=== PATIENT | female | born 1930 | race Caucasian/White ===

== ENCOUNTER 2016-06-02 17:49 | Inpatient (IN) | payer OTHER, MEDICARE ==
[2016-06-02 18:37] LABS: INR 1.2 (0.82-1.09); PROTHROMBIN TIME (PATIENT) 13.4 SEC (10.2-13.0)
[2016-06-02 18:44] VITALS: BMI 24.6
[2016-06-02 18:52] LABS: ALBUMIN 3.5 g/dl (3.5-5.0); BILIRUBIN,TOTAL 0.8 mg/dl (0.2-1.0); CALCIUM 8.7 mg/dl (8.4-10.2); CREATININE 1.4 mg/dl (0.6-1.3); TOT PROT 5.8 g/dl (6.4-8.3)
[2016-06-02] MEDS ORDERED: CEFTRIAXONE 50 ML IVPB ONE (18:55)
[2016-06-02 18:59] LABS: BASOPHIL 1.1 % (0-2.0); EOSINOPHIL 1.2 % (0-4.5); MCH 24.9 pg (25.7-33.7); MCHC 32.5 g/dl (32.0-36.0); MEAN CELL VOLUME 76.6 fl (80-96); MEAN PLT VOLUME 7.6 fl (7.5-11.1); NEUTROPHILS 33.3 % (42.8-82.8); PLATELET COUNT 166 K/MM3 (134-434); RDW 17.8 % (11.6-15.6); WHITE BLOOD COUNT 15.2 K/mm3 (4.0-10.0)
[2016-06-02] MEDS ORDERED: VANCOMYCIN 1 GRAM (PRE-DOCKED) 250 ML IVPB ONE (19:30)
[2016-06-02] MEDS ORDERED: CEFTRIAXONE 100 ML IVPB ONE (19:30)
--- NOTE | 2016-06-02 20:03 | PN ---
Teaching Attending Note ATTENDING PHYSICIAN STATEMENT I saw and evaluated the patient. I reviewed the resident's note and discussed the case with the resident. I agree with the resident's findings and plan as documented. SUBJECTIVE: OBJECTIVE: ASSESSMENT AND PLAN: Problem List - Problems (1) Fever Code(s): R50.9 - FEVER, UNSPECIFIED (2) Cough Code(s): R05 - COUGH (3) Volume depletion Code(s): E86.9 - VOLUME DEPLETION, UNSPECIFIED (4) CLL (chronic lymphocytic leukemia) Code(s): C91.10 - CHRONIC LYMPHOCYTIC LEUK OF B-CELL TYPE NOT ACHIEVE REMIS (5) Aortic stenosis Code(s): I35.0 - NONRHEUMATIC AORTIC (VALVE) STENOSIS Qualifiers: Cardiac valve disease etiology: nonrheumatic Qualified Code(s): I35.0 - Nonrheumatic aortic (valve) stenosis
[2016-06-02] MEDS: ALBUTEROL SO4 0.083% IH SOL 2.5 MG/3 ML VIAL.NEB. NEB PRN (20:34)
[2016-06-02] MEDS: ACETAMINOPHEN 325 MG TABLET (FP) PO PRN (20:56)
[2016-06-02] MEDS ORDERED: OSELTAMIVIR PHOSPHATE 30 MG CAPSULE PO ONE (23:35)
[2016-06-03] MEDS: guaiFENesin 200 MG/10 ML 10 ML UNIT-DOSE CUPS PO PRN ×2 (00:15→13:00)
--- NOTE | 2016-06-03 07:56 | CON.CARD ---
Consult Consult Specialty:: cardio Referred by:: outon Reason for Consultation:: tachycardia, - History of Present Illness Chief Complaint: tachy History of Present Illness: 85 yo female with known critical aortic stenosis, here with influenza A. pt has had viral syndrome sx's off and on for several weeks; however now with lingering/worsening cough, feels very weak and poor appetite-- did not eat anything yesterday. +phlegm yest with fever to 103, +flu test she denies any sob, orthopnea. no CP PMH: chronic pulm MAC infection CLL Ao stenosis CKD - Past Medical History ...: No - Alcohol/Substance Use Hx Alcohol Use: No - Smoking History Smoking history: Never smoked Have you smoked in the past 12 months: No Aproximately how many cigarettes per day: 0 Home Medications - Allergies Allergies/Adverse Reactions: Allergies Allergy/AdvReac Type Severity Reaction Status Date / Time No Known Allergies Allergy Verified 10/05/15 13:23 - Home Medications Home Medications: Ambulatory Orders Levothyroxine [Synthroid -] 0.25 mcg PO DAILY 10/05/15 Promethazine HCl/Codeine [Prometh-Codein 6.25-10 mg/5 ml] 5 ml PO 06/02/16 Review of Systems - Review of Systems Constitutional: denies: Chills, Fever Eyes: denies: Eye Pain HENT: denies: Gingival Bleeding Neck: denies: Stiffness Cardiovascular: denies: Palpitations Respiratory: denies: Orthopnea, PND Gastrointestinal: denies: Diarrhea, Rectal Bleeding Genitourinary: denies: Burning, Hematuria Musculoskeletal: denies: Muscle Pain Integumentary: denies: Rash Neurological: denies: Numbness, Seizure, Syncope Endocrine: denies: Excessive Sweating Hematology/Lymphatic: denies: Excessive Bleeding Vital Signs: Vital Signs Temperature 101.1 F H 06/03/16 05:47 Pulse Rate 113 H 06/03/16 05:47 Respiratory Rate 20 06/03/16 05:47 Blood Pressure 127/53 06/03/16 05:47 O2 Sat by Pulse Oximetry (%) 95 06/03/16 05:47 Constitutional: Yes: Well Nourished, No Distress Eyes: No: Sclera Icterus HENT: No: Nasal Congestion Neck: No: Decreased ROM Respiratory: Yes: CTA Bilaterally. No: Accessory Muscle Use, Rales, Wheezes Gastrointestinal: Yes: Normal Bowel Sounds. No: Distention, Hepatomegaly, Palpable Mass, Tenderness Cardiovascular: Yes: Regular Rate and Rhythm JVD: No Carotid Bruit: No PMI: Non-Displaced Heart Sounds: Yes: S1. No: Gallop Murmur: Yes: Systolic Murmur (3/6 late-peaking NEEL, no S2 heard). No: Diastolic Murmur Musculoskeletal: Yes: Other (No kyphosis) Extremities: No: Cool, Cyanosis Edema: No Peripheral Pulses: 2+ Left Carotid, 2+ Right Carotid, 2+ Left Doralis Pedis, 2+ Right Dorsalis Pedis Integumentary: No: Jaundice Neurological: Yes: Alert. 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, with risk of occlusion at time of valve deployment; -has had preserved LVEF with no prior chf -no JVD and cxr clear, no chf sx's -observe closely and low threshold to stop IVF if any changes in resp status/cxr influenza A: -getting tamiflu -currently with no po intake x at least 1 day, suspect may have had decr'd PO for longer than that (she can't recall), receiving IVF at 75cc/hr -no signs chf -labs do not look signif prerenal vs baseline -given very tight Ao valve area, rec decr fluids to 40cc/hr for now--will incr gradually if bun or bicarb rising, or low bp's noted CLL: -monitored by dr galloway CKD: -baseline creat 1.1-1.4 -renal fxn stable here
[2016-06-03 08:32] LABS: CREATININE 1.3 mg/dl (0.6-1.3); MAGNESIUM 1.5 mg/dL (1.8-2.4)
[2016-06-03] MEDS: CEFTRIAXONE 1 GM in DEXTROSE 5%-WATER - 50 ML IVPB SCH (09:00)
--- NOTE | 2016-06-03 09:12 | PN ---
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
--- NOTE | 2016-06-03 10:14 | CONS ---
DATE OF CONSULTATION: DATE OF DICTATION: 06/03/2016 HISTORY OF PRESENT ILLNESS: The patient is an 85-year-old female with a history of CLL with hypogammaglobulinemia evaluated for acute influenza B. She had presented to her primary care physicians office with complaints of fever, shortness of breath, and cough. The patient had been ill for several weeks, however, markedly worsening over the last several days. She reported fever. She presented to her PMDs office and was referred to the hospital. Her hospital course was notable for fever to 102. A rapid test for influenza was performed and was positive for influenza B. She was started on Tamiflu. The patient complains of profound weakness, body ache, fever, and dry cough. She is somewhat ill-appearing. She denies any ill contacts, reports receiving influenza vaccine prior to admission. She denies any recent hospitalizations. Patient has a history of CLL with hypogammaglobulinemia. She receives infusions of IVIG. In addition, on review of her past medical history, she is noted to have positive sputum cultures for atypical mycobacteria. Her treatment history is not available at this time. PAST MEDICAL HISTORY: Positive for CLL, hypogammaglobulinemia, aortic stenosis, atypical mycobacterial infection of the lung. ALLERGIES: No known allergies. MEDICATIONS: Include ceftriaxone, vancomycin, Tamiflu, Tylenol. SOCIAL HISTORY: She lives at home with family members. Nonsmoker, nondrinker. SYSTEMS REVIEW: Neurologic: No loss of consciousness, seizure activity, or focal weakness. Cardiac: Negative for chest pain or palpitations. Respiratory: As per HPI. Gastrointestinal: Negative for vomiting or diarrhea. Genitourinary: Negative for urinary tract infection. LABORATORY DATA: White count 15.2, 33 neutrophils, 58 lymphocytes, 6 monocytes, hematocrit 35.3, platelet count 166. BUN 22, creatinine 1.4. Influenza swab positive for influenza B. Chest x-ray showed scarring/chronic atelectasis left heart border. No acute pneumonitis. PHYSICAL EXAMINATION: General: She is out of bed to chair. She is ill-appearing and weak-appearing with cough. Vital signs: Temperature 101.1, maximum temperature 102, blood pressure 127/53, pulse 113 and regular, respirations 20 per minute. HEENT: Sclerae anicteric. Heart: Heart sounds S1, S2. Lungs: Bilateral rhonchi. No wheezing or rales. Abdomen: Soft. No tenderness elicited. No mass, rebound, or rigidity. Extremities: 1+ edema. IMPRESSION: 1. Acute influenza B. 2. Possible secondary bacterial infection. 3. Chronic lymphocytic leukemia/hypogammaglobulinemia. 4. History of atypical mycobacterial lung infection. Continue Tamiflu adjusted for azotemia. Await culture results. Empiric antibiotic coverage with Zithromax and ceftriaxone for possible secondary bacterial infectious process. Droplet precautions. Will follow. Thank you for the kind referral. RUSTY EDWARDS M.D. [id number]
[2016-06-03] MEDS: AZITHROMYCIN IVPB 500 MG in DEXTROSE 5%-WATER - 250 ML IVPB SCH (10:31)
[2016-06-03 11:37] LABS: THYROID STIMULATING HORMONE 2.05 uIU/ml (0.358-3.74)
[2016-06-03 12:20] LABS: MCH 24.9 pg (25.7-33.7); MCHC 32.7 g/dl (32.0-36.0); MEAN CELL VOLUME 76.2 fl (80-96); MEAN PLT VOLUME 8.1 fl (7.5-11.1); PLATELET COUNT 116 K/MM3 (134-434); RDW 17.5 % (11.6-15.6); WHITE BLOOD COUNT 7.8 K/mm3 (4.0-10.0)
[2016-06-03] MEDS: ACETAMINOPHEN 325 MG TABLET (FP) PO PRN ×2 (13:00→22:02)
[2016-06-03 13:14] LABS: PLATELET ESTIMATE DECREASED (NORMAL)
[2016-06-03 13:25] LABS: PH,URINE 5.5 (4.5-8); URINE APPEARANCE Clear; URINE BILIRUBIN Negative (NEGATIVE); URINE BLOOD Trace-intact (NEGATIVE); URINE COLOR AMBER; URINE GLUCOSE (UA) Negative (NEGATIVE); URINE KETONE Negative (NEGATIVE); URINE LEUK ESTERASE Negative (NEGATIVE); URINE NITRITE Negative (NEGATIVE); URINE PROTEIN 2+ (NEGATIVE); URINE UROBILINOGEN 0.2 E.U/dl (0.2-1.0)
[2016-06-03] MEDS ORDERED: MAGNESIUM SULF 50% (8.12 MEQ/2 ML-1 GM VIAL) ONE (15:58)
[2016-06-03] MEDS ORDERED: MAGNESIUM SULF 50% (8.12 MEQ/2 ML-1 GM VIAL) IVPB ONE (16:23)
[2016-06-03] MEDS ORDERED: ZOLPIDEM TARTRATE 5 MG TABLET PO PRN (18:03)
[2016-06-03] MEDS: LACTATED RINGERS SOLUTION 1,000 ML IV SCH ×2 (20:15→22:04)
[2016-06-03] MEDS ORDERED: OSELTAMIVIR PHOSPHATE 75 MG CAPSULE PO SCH (22:00)
[2016-06-03] MEDS: OSELTAMIVIR PHOSPHATE 30 MG CAPSULE PO SCH (22:03)
[2016-06-04] MEDS: CEFTRIAXONE 1 GM in DEXTROSE 5%-WATER - 50 ML IVPB SCH (09:00)
[2016-06-04] MEDS: AZITHROMYCIN IVPB 500 MG in DEXTROSE 5%-WATER - 250 ML IVPB SCH (10:00)
[2016-06-04] MEDS ORDERED: PT OWN MED DRAWER 7, Y5N ONE ×2 (10:59→21:37)
[2016-06-04] MEDS ORDERED: CEFTRIAXONE 50 ML ONE (11:00)
[2016-06-04] MEDS: OSELTAMIVIR PHOSPHATE 30 MG CAPSULE PO SCH (21:48)
[2016-06-04] MEDS: LACTATED RINGERS SOLUTION 1,000 ML IV SCH (21:48)
[2016-06-04] MEDS: guaiFENesin 200 MG/10 ML 10 ML UNIT-DOSE CUPS PO PRN (21:48)
[2016-06-04] MEDS ORDERED: LOPERAMIDE HCL 2 MG CAPSULE PO PRN (22:32)
[2016-06-04] MEDS ORDERED: LOPERAMIDE HCL 2 MG CAPSULE PO ONE (22:45)
[2016-06-05] MEDS: ALBUTEROL SO4 0.083% IH SOL 2.5 MG/3 ML VIAL.NEB. NEB PRN ×2 (00:38→06:33)
[2016-06-05] MEDS ORDERED: guaiFENesin/CODEINE 10 ML UNIT-DOSE CUPS PO PRN (07:31)
[2016-06-05] MEDS ORDERED: CEFTRIAXONE 50 ML ONE (08:13)
[2016-06-05 08:51] LABS: MCH 24.7 pg (25.7-33.7); MCHC 32.4 g/dl (32.0-36.0); MEAN CELL VOLUME 76.3 fl (80-96); MEAN PLT VOLUME 7.7 fl (7.5-11.1); PLATELET COUNT 134 K/MM3 (134-434); RDW 17.2 % (11.6-15.6); WHITE BLOOD COUNT 9.3 K/mm3 (4.0-10.0)
--- NOTE | 2016-06-05 08:57 | PN ---
Progress Note, Physician Chief Complaint: flu History of Present Illness: coughing a lot, bringing up phlegm; denies any sob or orthopnea; still not eating much; estimates drinking about 16 oz water; no cp, palpit feels weak/tired - Current Medication List Current Medications: Active Medications Acetaminophen (Tylenol -) 650 mg PO Q6H PRN PRN Reason: FEVER OR PAIN Last Admin: 06/03/16 22:02 Dose: 650 mg Albuterol Sulfate (Ventolin 0.083% Nebulizer Soln -) 1 amp NEB Q6H PRN PRN Reason: SHORT OF BREATH/WHEEZING Last Admin: 06/05/16 06:33 Dose: 1 amp Guaifenesin (Robitussin -) 10 ml PO Q4H PRN PRN Reason: COUGH Last Admin: 06/04/16 21:48 Dose: 10 ml Guaifenesin/Codeine Phosphate (Robitussin Ac -) 10 ml PO HS PRN Ceftriaxone Sodium 1 gm/ (Dextrose) 50 mls @ 100 mls/hr IVPB DAILY [facility] Last Admin: 06/04/16 09:00 Dose: 100 mls/hr Azithromycin 500 mg/ Dextrose 250 mls @ 250 mls/hr IVPB DAILY [facility] Last Admin: 06/04/16 10:00 Dose: 250 mls/hr Lactated Ringer's (Lactated Ringers Solution) 1,000 mls @ 40 mls/hr IV ASDIR [facility] Last Admin: 06/04/16 21:48 Dose: 40 mls/hr Loperamide HCl (Imodium -) 2 mg PO QID PRN PRN Reason: DIARRHEA Oseltamivir Phosphate (Tamiflu -) 30 mg PO [facility] Stop: 06/07/16 21:59 Last Admin: 06/04/16 21:48 Dose: 30 mg - Objective Vital Signs: Vital Signs Temperature 99.2 F 06/05/16 05:00 Pulse Rate 82 06/05/16 05:00 Respiratory Rate 20 06/05/16 05:00 Blood Pressure 117/56 06/05/16 05:00 O2 Sat by Pulse Oximetry (%) 94 L 06/04/16 21:00 Constitutional: Yes: Well Nourished, No Distress, Calm Cardiovascular: Yes: Regular Rate and Rhythm, Murmur (soft murmur), S1, S2. No: JVD, Gallop Respiratory: Yes: Regular, CTA Bilaterally. 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
[2016-06-05 09:08] LABS: ALBUMIN 2.6 g/dl (3.5-5.0); BILIRUBIN,TOTAL 0.5 mg/dl (0.2-1.0); CALCIUM 7.9 mg/dl (8.4-10.2); CREATININE 1.1 mg/dl (0.6-1.3); TOT PROT 4.4 g/dl (6.4-8.3)
[2016-06-05] MEDS: CEFTRIAXONE 1 GM in DEXTROSE 5%-WATER - 50 ML IVPB SCH (09:16)
--- NOTE | 2016-06-05 09:21 | PN ---
Progress Note, Physician History of Present Illness: Feeling better Still with cough, generalized weakness No c/o dyspnea/ chest pain Temps down- afebrile CT shows small bibasilar infiltrates - Current Medication List Current Medications: Active Medications Acetaminophen (Tylenol -) 650 mg PO Q6H PRN PRN Reason: FEVER OR PAIN Last Admin: 06/03/16 22:02 Dose: 650 mg Albuterol Sulfate (Ventolin 0.083% Nebulizer Soln -) 1 amp NEB Q6H PRN PRN Reason: SHORT OF BREATH/WHEEZING Last Admin: 06/05/16 06:33 Dose: 1 amp Guaifenesin (Robitussin -) 10 ml PO Q4H PRN PRN Reason: COUGH Last Admin: 06/04/16 21:48 Dose: 10 ml Guaifenesin/Codeine Phosphate (Robitussin Ac -) 10 ml PO HS PRN Ceftriaxone Sodium 1 gm/ (Dextrose) 50 mls @ 100 mls/hr IVPB DAILY [facility] Last Admin: 06/05/16 09:16 Dose: 100 mls/hr Azithromycin 500 mg/ Dextrose 250 mls @ 250 mls/hr IVPB DAILY [facility] Last Admin: 06/04/16 10:00 Dose: 250 mls/hr Loperamide HCl (Imodium -) 2 mg PO QID PRN PRN Reason: DIARRHEA Oseltamivir Phosphate (Tamiflu -) 30 mg PO HS [facility] Stop: 06/07/16 21:59 Last Admin: 06/04/16 21:48 Dose: 30 mg - Objective Vital Signs: Vital Signs Temperature 99.2 F 06/05/16 05:00 Pulse Rate 82 06/05/16 05:00 Respiratory Rate 20 06/05/16 05:00 Blood Pressure 117/56 06/05/16 05:00 O2 Sat by Pulse Oximetry (%) 94 L 06/04/16 21:00 Constitutional: Yes: No Distress Eyes: Yes: Conjunctiva Clear Cardiovascular: Yes: Regular Rate and Rhythm, S1, S2 Respiratory: Yes: Rhonchi Gastrointestinal: Yes: Normal Bowel Sounds, Soft. No: Tenderness Edema: Yes Edema: LLE: 1+, RLE: 1+ Labs: CBC, BMP 06/05/16 07:55 06/05/16 07:55 INR, PTT INR 1.20 (0.82-1.09) 06/02/16 18:00 Assessment/Plan Acute influenza B Possible secondary bacterial pneumonia CCL/ hypogammaglobulinemia Hx atypical mycobacterial lung infection Continue Tamiflu Empiric zithromax/ ceftriaxone Droplet precautions
[2016-06-05] MEDS ORDERED: MAGNESIUM SULFATE 2 GM in SODIUM CHLORIDE 100 ML IVPB ONE (10:49)
[2016-06-05] MEDS ORDERED: MAGNESIUM SULF 50% (8.12 MEQ/2 ML-1 GM VIAL) IVPB ONE (11:15)
--- NOTE | 2016-06-05 12:55 | EKG ---
Test Reason : Blood Pressure : / mmHG Vent. Rate : 111 BPM Atrial Rate : 111 BPM P-R Int : 170 ms QRS Dur : 084 ms QT Int : 338 ms P-R-T Axes : 076 -41 079 degrees QTc Int : 459 ms SINUS TACHYCARDIA LEFT AXIS DEVIATION NONSPECIFIC ST AND T WAVE ABNORMALITY ABNORMAL ECG WHEN COMPARED WITH ECG OF 06-MAY-2003 14:47, QRS AXIS SHIFTED LEFT NONSPECIFIC ST AND T WAVE ABNORMALITY are now present Confirmed by LIS WEST MD ([id number]) on 06/05/2016 12:55:17 PM Referred By: DR METCALF Confirmed By:LIS WEST MD
--- NOTE | 2016-06-05 14:07 | HP ---
[id number] 4d patient is a 85 y/o female with a past medical history of CLL hypogammaglobulinimeia (receives IVIG every 4 months), atypical mycobacterial infection of the lung, severe aortic stenosis. Patient reports feeling ill for the past several weeks. However, within the past week she reports generalized weakness, poor appetite, cough and fever (tmax of 102.0) She was evaluated by her PCP, Dr Man on 06/02/16 and was admitted to the hospital for further management. Recent Travel: none Social History: resides at home alone, retired Smoking: none Alcohol:none Drugs: none Family History: father (cva) mother (respiratory failure) Allergies No Known Allergies Allergy (Verified 10/05/15 13:23) HOME MEDICATIONS: Home Medications Medication Instructions Recorded Levothyroxine [Synthroid -] 0.25 mcg PO DAILY 10/05/15 Promethazine HCl/Codeine 5 ml PO 06/02/16 [Prometh-Codein 6.25-10 mg/5 ml] REVIEW OF SYSTEMS CONSTITUTIONAL: Present: fever,generalized weakness loss of appetite Absent: chills, diaphoresis, , malaise, weight change HEENT: Absent: rhinorrhea, nasal congestion, throat pain, throat swelling, difficulty swallowing, mouth swelling, ear pain, eye pain, visual changes CARDIOVASCULAR: Absent: chest pain, syncope, palpitations, irregular heart rate, lightheadedness , peripheral edema RESPIRATORY: present: cough Absent: shortness of breath, dyspnea with exertion, orthopnea, wheezing, stridor , hemoptysis GASTROINTESTINAL: Absent: abdominal pain, abdominal distension, nausea, vomiting, diarrhea, constipation, melena, hematochezia GENITOURINARY: Absent: dysuria, frequency, urgency, hesitancy, hematuria, flank pain, genital pain MUSCULOSKELETAL: Absent: myalgia, arthralgia, joint swelling, back pain, neck pain SKIN: Absent: rash, itching, pallor HEMATOLOGIC/IMMUNOLOGIC: Absent: easy bleeding, easy bruising, lymphadenopathy, frequent infections ENDOCRINE: Absent: unexplained weight gain, unexplained weight loss, heat intolerance, cold intolerance NEUROLOGIC: Absent: headache, focal weakness or paresthesias, dizziness, unsteady gait, seizure, mental status changes, bladder or bowel incontinence PSYCHIATRIC: Absent: anxiety, depression, suicidal or homicidal ideation, hallucinations. PHYSICAL EXAMINATION Vital Signs - 24 hr 06/04/16 06/04/16 06/04/16 14:22 14:30 19:52 Temperature 98.1 F Pulse Rate 106 H Respiratory 18 18 Rate Blood Pressure 112/56 O2 Sat by Pulse 94 L 94 L Oximetry (%) 06/04/16 06/05/16 21:00 05:00 Temperature 98.5 F 99.2 F Pulse Rate 102 H 82 Respiratory 16 20 Rate Blood Pressure 129/60 117/56 O2 Sat by Pulse 94 L Oximetry (%) GENERAL: Awake, alert, and fully oriented, in no acute distress. HEAD: Normal with no signs of trauma. EYES: Pupils equal, round and reactive to light, extraocular movements intact, sclera anicteric, conjunctiva clear. No lid lag. EARS, NOSE, THROAT: Ears normal, nares patent, oropharynx clear without exudates. Moist mucous membranes. NECK: Normal range of motion, supple without lymphadenopathy, JVD, or masses. LUNGS: Breath sounds equal, clear to auscultation bilaterally. diminished to bases, No wheezes, and no crackles. No accessory muscle use. tachypnea HEART: Regular rate and rhythm, normal S1 and S2 without murmur, rub or gallop. ABDOMEN: Soft, nontender, not distended, normoactive bowel sounds, no guarding, no rebound, no masses. No hepatomegaly or splenomegaly. MUSCULOSKELETAL: Normal range of motion at all joints. No bony deformities or tenderness. No CVA tenderness. UPPER EXTREMITIES: 2+ pulses, warm, well-perfused. No cyanosis. No clubbing. Cap refill <2 seconds. No peripheral edema. LOWER EXTREMITIES: 2+ pulses, warm, well-perfused. No calf tenderness. No peripheral edema. NEUROLOGICAL: Cranial nerves II-XII intact. Normal speech. Normal gait. PSYCHIATRIC: Cooperative. Good eye contact. Appropriate mood and affect. SKIN: Warm, dry, normal turgor, no rashes or lesions noted. Laboratory Results - last 24 hr 06/05/16 06/05/16 06/05/16 07:00 07:55 07:55 WBC 9.3 RBC 3.90 Hgb 9.6 L Hct 29.7 L MCV 76.3 L MCHC 32.4 RDW 17.2 H Plt Count 134 MPV 7.7 Sodium 135 L Potassium 3.6 Chloride 100 Carbon Dioxide 27 Anion Gap 8 BUN 24 H Creatinine 1.1 Creat Clearance w eGFR 47.21 Random Glucose 108 H Calcium 7.9 L Magnesium 1.7 L Total Bilirubin 0.5 D AST 20 D ALT 14 Alkaline Phosphatase 44 D Total Protein 4.4 L D Albumin 2.6 L D Microbiology 06/05/16 07:47 Urine For Antigen Detection Legionella Antigen - Final 06/05/16 07:47 Urine For Antigen Detection Streptococcus pneumoniae Antigen (M - Final 06/03/16 06:30 Sputum - Expectorated Gram Stain - Final 06/03/16 06:30 Sputum - Expectorated Sputum Culture - Final NORMAL RESPIRATORY LAURY 06/02/16 18:00 Blood - Peripheral Venous Blood Culture - Preliminary NO GROWTH OBTAINED AFTER 48 HOURS, INCUBATION TO CONTINUE FOR 3 DAYS. 06/02/16 20:30 Blood - Peripheral Venous Blood Culture - Preliminary NO GROWTH OBTAINED AFTER 48 HOURS, INCUBATION TO CONTINUE FOR 3 DAYS. 06/03/16 06:30 Urine - Urine Clean Catch Urine Culture - Final NO GROWTH OBTAINED 06/02/16 18:00 Nasopharyngeal Swab Influenza Types A,B Antigen (GARCIA) - Final , influenza B + 06/02/16 18:00 Nasopharyngeal Swab - Final ASSESSMENT/PLAN: 1) ID influenza b - continue tamiflu - ID consulted and followed 2) pulm atypical mycobacterial of lung - ct of chest, several billateral lower lobe infilitrates - continue zithromax and rocephin likely secondary bacterial bronchitis from influenza a - supplemental o2, keep spo2 above 92% - continue prn combivent nebulizer - incentive spirometer 3) Card severe aortic stenosis (s/p stent) - pending ECHO - elevated bnp, unknown baseline, pt euvolemic on exam - strict i/o 4) endo - pmh of hypothyroid - continue synthroid f/e/n - regular diet ppx zantac heparin pt oob scd/tez dispo: requires in patient care Problem List - Problem (1) Fever and chills Code(s): R50.9 - FEVER, UNSPECIFIED (2) Aortic stenosis Code(s): I35.0 - NONRHEUMATIC AORTIC (VALVE) STENOSIS Qualifiers: Cardiac valve disease etiology: nonrheumatic Qualified Code(s): I35.0 - Nonrheumatic aortic (valve) stenosis (3) CLL (chronic lymphocytic leukemia) Code(s): C91.10 - CHRONIC LYMPHOCYTIC LEUK OF B-CELL TYPE NOT ACHIEVE REMIS (4) Influenza B Code(s): J10.1 - FLU DUE TO OTH IDENT INFLUENZA VIRUS W OTH RESP MANIFEST Visit type - Emergency Visit Emergency Visit: Yes ED Registration Date: 06/02/16 Care time: The patient presented to the Emergency Department on the above date and was hospitalized for further evaluation of their emergent condition. - New Patient This patient is new to me today: Yes Date on this admission: 06/05/16 - Critical Care Critical Care patient: No
[2016-06-05] MEDS ORDERED: PT OWN MED DRAWER 7, Y5N ONE (22:28)
[2016-06-05] MEDS: HEPARIN NA (PORCINE) 5,000 UNITS/ML 1ML VIAL SQ SCH (22:30)
[2016-06-05] MEDS: OSELTAMIVIR PHOSPHATE 30 MG CAPSULE PO SCH (22:30)
[2016-06-06] MEDS: LEVOTHYROXINE NA 25 MCG TABLET (FP) PO SCH (06:18)
[2016-06-06 09:09] LABS: ALBUMIN 2.3 g/dl (3.5-5.0); BILIRUBIN,TOTAL 0.3 mg/dl (0.2-1.0); CALCIUM 7.7 mg/dl (8.4-10.2); CREATININE 1.1 mg/dl (0.6-1.3); MAGNESIUM 1.9 mg/dL (1.8-2.4); PHOSPHOROUS 2.8 mg/dl (2.5-4.6); TOT PROT 4.1 g/dl (6.4-8.3)
[2016-06-06 09:42] LABS: MCH 24.7 pg (25.7-33.7); MEAN CELL VOLUME 75.5 fl (80-96); WHITE BLOOD COUNT 9.2 K/mm3 (4.0-10.0)
[2016-06-06 09:43] LABS: MCHC 32.8 g/dl (32.0-36.0); MEAN PLT VOLUME 7.9 fl (7.5-11.1); PLATELET COUNT 110 K/MM3 (134-434); RDW 18.4 % (11.6-15.6)
[2016-06-06] MEDS: CEFTRIAXONE 1 GM in DEXTROSE 5%-WATER - 50 ML IVPB SCH (09:59)
[2016-06-06] MEDS: HEPARIN NA (PORCINE) 5,000 UNITS/ML 1ML VIAL SQ SCH ×2 (09:59→22:40)
[2016-06-06] MEDS: RANITIDINE HCL 150 MG TABLET (FP) PO SCH (09:59)
[2016-06-06] MEDS: AZITHROMYCIN IVPB 500 MG in DEXTROSE 5%-WATER - 250 ML IVPB SCH ×2 (10:06→12:17)
[2016-06-06] MEDS: ALBUTEROL SO4 2.5/IPRATROPIUM 0.5 INH SOL 3 ML VIAL.NEB. NEB SCH ×3 (10:20→22:40)
--- NOTE | 2016-06-06 10:36 | PN ---
Progress Note, Physician History of Present Illness: C/o generalized weaknes Less cough no c/o dyspnea/ chest pain Temps down, afebrile WBC improved- WNL - Current Medication List Current Medications: Active Medications Acetaminophen (Tylenol -) 650 mg PO Q6H PRN PRN Reason: FEVER OR PAIN Last Admin: 06/03/16 22:02 Dose: 650 mg Albuterol/Ipratropium (Duoneb -) 1 amp NEB Q6H [facility] Last Admin: 06/06/16 10:20 Dose: 1 amp Guaifenesin (Robitussin -) 10 ml PO Q4H PRN PRN Reason: COUGH Last Admin: 06/04/16 21:48 Dose: 10 ml Guaifenesin/Codeine Phosphate (Robitussin Ac -) 10 ml PO HS PRN Last Admin: 06/05/16 22:30 Dose: 10 ml Heparin Sodium (Porcine) (Heparin -) 5,000 unit SQ BID [facility] Last Admin: 06/06/16 09:59 Dose: 5,000 unit Ceftriaxone Sodium 1 gm/ (Dextrose) 50 mls @ 100 mls/hr IVPB DAILY [facility] Last Admin: 06/06/16 09:59 Dose: 100 mls/hr Azithromycin 500 mg/ Dextrose 250 mls @ 250 mls/hr IVPB DAILY [facility] Last Admin: 06/06/16 10:06 Dose: 250 mls/hr Levothyroxine Sodium (Synthroid -) 25 mcg PO ACBK [facility] Last Admin: 06/06/16 06:18 Dose: 25 mcg Loperamide HCl (Imodium -) 2 mg PO QID PRN PRN Reason: DIARRHEA Oseltamivir Phosphate (Tamiflu -) 30 mg PO HS [facility] Stop: 06/07/16 21:59 Last Admin: 06/05/16 22:30 Dose: 30 mg Ranitidine HCl (Zantac -) 150 mg PO DAILY [facility] Last Admin: 06/06/16 09:59 Dose: 150 mg - Objective Vital Signs: Vital Signs Temperature 99.1 F 06/06/16 05:00 Pulse Rate 95 H 06/06/16 09:42 Respiratory Rate 19 06/06/16 05:00 Blood Pressure 108/50 06/06/16 05:00 O2 Sat by Pulse Oximetry (%) 98 06/06/16 09:42 Constitutional: Yes: No Distress Eyes: Yes: Conjunctiva Clear Cardiovascular: Yes: Regular Rate and Rhythm, S1, S2 Respiratory: Yes: Rhonchi Gastrointestinal: Yes: Normal Bowel Sounds, Soft. 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
--- NOTE | 2016-06-06 11:57 | PN ---
Physical Exam: SUBJECTIVE: Patient seen and examined OBJECTIVE: Vital Signs Period Temp Pulse Resp BP Sys/Jones Pulse Ox Last 24 Hr 98.7 F-99.7 F 95-99 19-19 108-115/50-56 93-98 GENERAL: The patient is awake, alert, and fully oriented, in no acute distress. HEAD: Normal with no signs of trauma. EYES: PERRL, extraocular movements intact, sclera anicteric, conjunctiva clear. No ptosis. ENT: Ears normal, nares patent, oropharynx clear without exudates, moist mucous membranes. NECK: Trachea midline, full range of motion, supple. LUNGS: Breath sounds equal, clear to auscultation bilaterally, no wheezes, no crackles, no accessory muscle use. HEART: Regular rate and rhythm, S1, S2 without murmur, rub or gallop. ABDOMEN: Soft, nontender, nondistended, normoactive bowel sounds, no guarding, no rebound, no hepatosplenomegaly, no masses. EXTREMITIES: 2+ pulses, warm, well-perfused, no edema. NEUROLOGICAL: Cranial nerves II through XII grossly intact. Normal speech, gait not observed. PSYCH: Normal mood, normal affect. SKIN: Warm, dry, normal turgor, no rashes or lesions noted Laboratory Results - last 24 hr 06/06/16 06/06/16 07:40 07:40 WBC 9.2 RBC 3.55 L Hgb 8.8 L Hct 26.8 L MCV 75.5 L MCHC 32.8 RDW 18.4 H Plt Count 110 L MPV 7.9 Neutrophils % Y Lymphocytes % Y Sodium 135 L Potassium 3.7 Chloride 99 Carbon Dioxide 28 Anion Gap 8 BUN 27 H Creatinine 1.1 Creat Clearance w eGFR 47.21 Random Glucose 99 Calcium 7.7 L Phosphorus 2.8 Magnesium 1.9 Total Bilirubin 0.3 D AST 27 D ALT 15 Alkaline Phosphatase 39 Total Protein 4.1 L Albumin 2.3 L Active Medications Generic Name Dose Route Start Last Admin Trade Name Freq PRN Reason Stop Dose Admin Acetaminophen 650 mg 06/02/16 18:53 06/03/16 22:02 Tylenol - PO 650 mg Q6H PRN Administration FEVER OR PAIN Albuterol/Ipratropium 1 amp 06/06/16 10:00 06/06/16 10:20 Duoneb - NEB 1 amp Q6H JAYSON Administration Guaifenesin 10 ml 06/02/16 23:31 06/04/16 21:48 Robitussin - PO 10 ml Q4H PRN Administration COUGH Guaifenesin/Codeine Phosphate 10 ml 06/05/16 07:31 06/05/16 22:30 Robitussin Ac - PO 10 ml HS PRN Administration Heparin Sodium (Porcine) 5,000 unit 06/05/16 22:00 06/06/16 09:59 Heparin - SQ 5,000 unit BID JAYSON Administration Ceftriaxone Sodium 1 gm/ 50 mls @ 100 mls/hr 06/03/16 10:00 06/06/16 09:59 Dextrose IVPB 100 mls/hr DAILY JAYSON Administration Azithromycin 500 mg/ Dextrose 250 mls @ 250 mls/hr 06/03/16 10:00 06/06/16 10: 06 IVPB 250 mls/hr DAILY JAYSON Administration Levothyroxine Sodium 25 mcg 06/06/16 07:00 06/06/16 06:18 Synthroid - PO 25 mcg ACBK JAYSON Administration Loperamide HCl 2 mg 06/04/16 22:32 Imodium - PO QID PRN DIARRHEA Oseltamivir Phosphate 30 mg 06/03/16 22:00 06/05/16 22:30 Tamiflu - PO 06/07/16 21:59 30 mg HS JAYSON Administration Ranitidine HCl 150 mg 06/06/16 10:00 06/06/16 09:59 Zantac - PO 150 mg DAILY JAYSON Administration ASSESSMENT/PLAN: Problem List - Problems (1) Fever and chills Code(s): R50.9 - FEVER, UNSPECIFIED (2) Aortic stenosis Code(s): I35.0 - NONRHEUMATIC AORTIC (VALVE) STENOSIS Qualifiers: Cardiac valve disease etiology: nonrheumatic Qualified Code(s): I35.0 - Nonrheumatic aortic (valve) stenosis (3) CLL (chronic lymphocytic leukemia) Code(s): C91.10 - CHRONIC LYMPHOCYTIC LEUK OF B-CELL TYPE NOT ACHIEVE REMIS (4) Influenza B Code(s): J10.1 - FLU DUE TO OTH IDENT INFLUENZA VIRUS W OTH RESP MANIFEST
--- NOTE | 2016-06-06 12:02 | PN ---
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 patient was admitted for emergent condition Vital Signs Period Temp Pulse Resp BP Sys/Jones Pulse Ox Last 24 Hr 98.7 F-99.7 F 95-99 19-19 108-115/50-56 93-98 GENERAL: The patient is awake, alert, and fully oriented, in no acute distress. HEAD: Normal with no signs of trauma. EYES: PERRL, extraocular movements intact, sclera anicteric, conjunctiva clear. No ptosis. ENT: Ears normal, nares patent, oropharynx clear without exudates, moist mucous membranes. NECK: Trachea midline, full range of motion, supple. LUNGS: Breath sounds equal, clear to apexes bilaterally, crackles noted to right lower lobe, no wheezes, no accessory muscle use. HEART: Regular rate and rhythm, S1, S2 without murmur, rub or gallop. ABDOMEN: Soft, nontender, nondistended, normoactive bowel sounds, no guarding, no rebound, no hepatosplenomegaly, no masses. EXTREMITIES: 2+ pulses, warm, well-perfused, no edema. NEUROLOGICAL: Cranial nerves II through XII grossly intact. Normal speech, gait not observed. PSYCH: Normal mood, normal affect. SKIN: Warm, dry, normal turgor, no rashes or lesions noted Laboratory Results - last 24 hr 06/06/16 06/06/16 07:40 07:40 WBC 9.2 RBC 3.55 L Hgb 8.8 L Hct 26.8 L MCV 75.5 L MCHC 32.8 RDW 18.4 H Plt Count 110 L MPV 7.9 Neutrophils % Y Lymphocytes % Y Sodium 135 L Potassium 3.7 Chloride 99 Carbon Dioxide 28 Anion Gap 8 BUN 27 H Creatinine 1.1 Creat Clearance w eGFR 47.21 Random Glucose 99 Calcium 7.7 L Phosphorus 2.8 Magnesium 1.9 Total Bilirubin 0.3 D AST 27 D ALT 15 Alkaline Phosphatase 39 Total Protein 4.1 L Albumin 2.3 L Active Medications Generic Name Dose Route Start Last Admin Trade Name Freq PRN Reason Stop Dose Admin Acetaminophen 650 mg 06/02/16 18:53 06/03/16 22:02 Tylenol - PO 650 mg Q6H PRN Administration FEVER OR PAIN Albuterol/Ipratropium 1 amp 06/06/16 10:00 06/06/16 10:20 Duoneb - NEB 1 amp Q6H JAYSON Administration Guaifenesin 10 ml 06/02/16 23:31 06/04/16 21:48 Robitussin - PO 10 ml Q4H PRN Administration COUGH Guaifenesin/Codeine Phosphate 10 ml 06/05/16 07:31 06/05/16 22:30 Robitussin Ac - PO 10 ml HS PRN Administration Heparin Sodium (Porcine) 5,000 unit 06/05/16 22:00 06/06/16 09:59 Heparin - SQ 5,000 unit BID JAYSON Administration Ceftriaxone Sodium 1 gm/ 50 mls @ 100 mls/hr 06/03/16 10:00 06/06/16 09:59 Dextrose IVPB 100 mls/hr DAILY JAYSON Administration Azithromycin 500 mg/ Dextrose 250 mls @ 250 mls/hr 06/03/16 10:00 06/06/16 10: 06 IVPB 250 mls/hr DAILY JAYSON Administration Levothyroxine Sodium 25 mcg 06/06/16 07:00 06/06/16 06:18 Synthroid - PO 25 mcg ACBK JAYSON Administration Loperamide HCl 2 mg 06/04/16 22:32 Imodium - PO QID PRN DIARRHEA Oseltamivir Phosphate 30 mg 06/03/16 22:00 06/05/16 22:30 Tamiflu - PO 06/07/16 21:59 30 mg HS JAYSON Administration Ranitidine HCl 150 mg 06/06/16 10:00 06/06/16 09:59 Zantac - PO 150 mg DAILY JAYSON Administration Microbiology 06/02/16 18:00 Blood - Peripheral Venous Blood Culture - Preliminary NO GROWTH OBTAINED AFTER 72 HOURS, INCUBATION TO CONTINUE FOR 2 DAYS. 06/02/16 20:30 Blood - Peripheral Venous Blood Culture - Preliminary NO GROWTH OBTAINED AFTER 72 HOURS, INCUBATION TO CONTINUE FOR 2 DAYS. 06/04/16 21:00 Stool Clostridium difficile Antigen (GARCIA) - Final 06/04/16 21:00 Stool Clostridium difficile Toxin Assay - Final 06/05/16 07:47 Urine For Antigen Detection Legionella Antigen - Final 06/05/16 07:47 Urine For Antigen Detection Streptococcus pneumoniae Antigen (M - Final 06/03/16 06:30 Sputum - Expectorated Gram Stain - Final 06/03/16 06:30 Sputum - Expectorated Sputum Culture - Final NORMAL RESPIRATORY LAURY 06/03/16 06:30 Urine - Urine Clean Catch Urine Culture - Final NO GROWTH OBTAINED 06/02/16 18:00 Nasopharyngeal Swab Influenza Types A,B Antigen (GARCIA) - Final 06/02/16 18:00 Nasopharyngeal Swab - Final ASSESSMENT/PLAN: 1) ID influenza b - continue tamiflu - no leukocytosis, pt afebrile - blood and urine cultures negative to date - ID consulted and followed 2) pulm atypical mycobacterial of lung - ct of chest, several billateral lower lobe infilitrates - continue zithromax and rocephin likely secondary bacterial bronchitis from influenza a - supplemental o2, keep spo2 above 92% - start scheduled combivent nebulizer - incentive spirometer 3) Card severe aortic stenosis (s/p stent) - ECHO, LVEF 55%, moderate LVH, severe aortic stenosis - elevated bnp, unknown baseline, pt euvolemic on exam - strict i/o 4) endo - pmh of hypothyroid - continue synthroid f/e/n - regular diet ppx zantac heparin pt oob scd/tez dispo: requires in patient care Problem List - Problems (1) Fever and chills Code(s): R50.9 - FEVER, UNSPECIFIED (2) Aortic stenosis Code(s): I35.0 - NONRHEUMATIC AORTIC (VALVE) STENOSIS Qualifiers: Cardiac valve disease etiology: nonrheumatic Qualified Code(s): I35.0 - Nonrheumatic aortic (valve) stenosis (3) CLL (chronic lymphocytic leukemia) Code(s): C91.10 - CHRONIC LYMPHOCYTIC LEUK OF B-CELL TYPE NOT ACHIEVE REMIS (4) Influenza B Code(s): J10.1 - FLU DUE TO OTH IDENT INFLUENZA VIRUS W OTH RESP MANIFEST Visit type - Emergency Visit Emergency Visit: Yes ED Registration Date: 06/02/16 Care time: The patient presented to the Emergency Department on the above date and was hospitalized for further evaluation of their emergent condition. - New Patient This patient is new to me today: No - Critical Care Critical Care patient: No - Discharge Referral Referred to [facility] Yes Physician Referral: Efrain Man MD (Int Med)
[2016-06-06 12:09] LABS: PLATELET ESTIMATE DECREASED (NORMAL)
[2016-06-06] MEDS: LACTATED RINGERS SOLUTION 1,000 ML IV SCH (12:19)
[2016-06-06] MEDS: guaiFENesin 200 MG/10 ML 10 ML UNIT-DOSE CUPS PO PRN (18:11)
[2016-06-06] MEDS ORDERED: PT OWN MED DRAWER 7, Y5N ONE (22:14)
[2016-06-06] MEDS: OSELTAMIVIR PHOSPHATE 30 MG CAPSULE PO SCH (22:40)
[2016-06-07 06:20] VITALS: BP 103/51; TEMP 98.3
[2016-06-07] MEDS: guaiFENesin 200 MG/10 ML 10 ML UNIT-DOSE CUPS PO PRN ×2 (06:35→10:10)
[2016-06-07] MEDS: ALBUTEROL SO4 2.5/IPRATROPIUM 0.5 INH SOL 3 ML VIAL.NEB. NEB SCH ×2 (06:35→10:06)
[2016-06-07] MEDS: LEVOTHYROXINE NA 25 MCG TABLET (FP) PO SCH (06:35)
[2016-06-07 08:29] LABS: BASOPHIL 0.3 % (0-2.0); EOSINOPHIL 2.1 % (0-4.5); MCH 24.1 pg (25.7-33.7); MCHC 31.4 g/dl (32.0-36.0); MEAN CELL VOLUME 76.8 fl (80-96); MEAN PLT VOLUME 7.9 fl (7.5-11.1); PLATELET COUNT 135 K/MM3 (134-434); RDW 17.4 % (11.6-15.6)
[2016-06-07 08:45] LABS: CALCIUM 7.9 mg/dl (8.4-10.2); CREATININE 1.1 mg/dl (0.6-1.3); PHOSPHOROUS 3.1 mg/dl (2.5-4.6)
--- NOTE | 2016-06-07 09:20 | PN ---
Progress Note, Physician History of Present Illness: Still with cough C/O generalized weakness, bodyache Temps down- afebrile - Current Medication List Current Medications: Active Medications Acetaminophen (Tylenol -) 650 mg PO Q6H PRN PRN Reason: FEVER OR PAIN Last Admin: 06/03/16 22:02 Dose: 650 mg Albuterol/Ipratropium (Duoneb -) 1 amp NEB Q6H JAYSON Last Admin: 06/07/16 06:35 Dose: 1 amp Guaifenesin (Robitussin -) 10 ml PO Q4H PRN PRN Reason: COUGH Last Admin: 06/07/16 06:35 Dose: 10 ml Guaifenesin/Codeine Phosphate (Robitussin Ac -) 10 ml PO HS PRN Last Admin: 06/05/16 22:30 Dose: 10 ml Heparin Sodium (Porcine) (Heparin -) 5,000 unit SQ BID [facility] Last Admin: 06/06/16 22:40 Dose: 5,000 unit Ceftriaxone Sodium 1 gm/ (Dextrose) 50 mls @ 100 mls/hr IVPB DAILY [facility] Last Admin: 06/06/16 09:59 Dose: 100 mls/hr Azithromycin 500 mg/ Dextrose 250 mls @ 250 mls/hr IVPB DAILY [facility] Last Admin: 06/06/16 12:17 Dose: Not Given Levothyroxine Sodium (Synthroid -) 25 mcg PO ACBK [facility] Last Admin: 06/07/16 06:35 Dose: 25 mcg Loperamide HCl (Imodium -) 2 mg PO QID PRN PRN Reason: DIARRHEA Oseltamivir Phosphate (Tamiflu -) 30 mg PO HS [facility] Stop: 06/07/16 21:59 Last Admin: 06/06/16 22:40 Dose: 30 mg Ranitidine HCl (Zantac -) 150 mg PO DAILY [facility] Last Admin: 06/06/16 09:59 Dose: 150 mg - Objective Vital Signs: Vital Signs Temperature 98.3 F 06/07/16 06:00 Pulse Rate 89 06/07/16 06:00 Respiratory Rate 17 06/07/16 06:00 Blood Pressure 103/51 06/07/16 06:00 O2 Sat by Pulse Oximetry (%) 96 06/07/16 06:00 Constitutional: Yes: No Distress Eyes: Yes: Conjunctiva Clear Cardiovascular: Yes: Regular Rate and Rhythm, S1, S2 Respiratory: Yes: Rhonchi Gastrointestinal: Yes: Normal Bowel Sounds, Soft. No: Tenderness Edema: No Labs: CBC, BMP 06/07/16 07:40 06/07/16 07:40 INR, PTT INR 1.20 (0.82-1.09) 06/02/16 18:00 Assessment/Plan Acute influenza B Possible secondary bacterial pneumonia CCL/ hypogammaglobulinemia Hx atypical mycobacterial lung infection Continue Tamiflu complete 5d course May substitute po levaquin 250mg daily x 7d
[2016-06-07] MEDS ORDERED: PT OWN MED DRAWER 7, Y5N ONE (10:07)
[2016-06-07] MEDS: HEPARIN NA (PORCINE) 5,000 UNITS/ML 1ML VIAL SQ SCH (10:10)
[2016-06-07] MEDS ORDERED: CEFTRIAXONE 50 ML ONE (10:13)
[2016-06-07] MEDS: RANITIDINE HCL 150 MG TABLET (FP) PO SCH (10:15)
[2016-06-07] MEDS: AZITHROMYCIN IVPB 500 MG in DEXTROSE 5%-WATER - 250 ML IVPB SCH (10:15)
[2016-06-07] MEDS: CEFTRIAXONE 1 GM in DEXTROSE 5%-WATER - 50 ML IVPB SCH (10:15)
[2016-06-07 11:02] VITALS: PULSE 96
--- NOTE | 2016-06-07 13:14 | DS ---
Physical Exam: SUBJECTIVE: Patient seen and examined, patient reports feeling much better, reports intermittent cough. 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 Patient reports feeling ill for the past several weeks. However, within the past week she reports generalized weakness, poor appetite, cough and fever (tmax of 102.0) She was evaluated by her PCP, Dr Man on 06/02/16 and was admitted to the hospital for further management. Vital Signs Period Temp Pulse Resp BP Sys/Jones Pulse Ox Last 24 Hr 98.3 F-99.2 F 89-99 16-19 100-110/50-55 96-98 PHYSICAL EXAM GENERAL: The patient is awake, alert, and fully oriented, in no acute distress. HEAD: Normal with no signs of trauma. EYES: PERRL, extraocular movements intact, sclera anicteric, conjunctiva clear. ENT: Ears normal, nares patent, oropharynx clear without exudates, moist mucous membranes. NECK: Trachea midline, full range of motion, supple. LUNGS: Breath sounds equal, clear to auscultation bilaterally, no wheezes, no crackles, no accessory muscle use. HEART: Regular rate and rhythm, S1, S2 without murmur, rub or gallop. ABDOMEN: Soft, nontender, nondistended, normoactive bowel sounds, no guarding, no rebound, no hepatosplenomegaly, no masses. EXTREMITIES: 2+ pulses, warm, well-perfused, no edema. NEUROLOGICAL: Cranial nerves II through XII grossly intact. Normal speech, gait not observed. PSYCH: Normal mood, normal affect. SKIN: Warm, dry, normal turgor, no rashes or lesions noted. LABS Laboratory Results - last 24 hr 06/07/16 06/07/16 07:40 07:40 WBC 9.0 RBC 3.56 L Hgb 8.6 L D Hct 27.4 L MCV 76.8 L MCHC 31.4 L RDW 17.4 H Plt Count 135 MPV 7.9 Neutrophils % 19.0 L D Lymphocytes % 73.5 H D Monocytes % 5.1 Eosinophils % 2.1 Basophils % 0.3 Sodium 138 Potassium 3.7 Chloride 102 Carbon Dioxide 27 Anion Gap 9 BUN 29 H Creatinine 1.1 Random Glucose 114 H Calcium 7.9 L Phosphorus 3.1 Magnesium 2.0 Microbiology 06/02/16 18:00 Nasopharyngeal Swab Respiratory Virus Panel - Preliminary 06/02/16 18:00 Blood - Peripheral Venous Blood Culture - Preliminary NO GROWTH OBTAINED AFTER 96 HOURS, INCUBATION TO CONTINUE FOR 1 DAYS. 06/02/16 20:30 Blood - Peripheral Venous Blood Culture - Preliminary NO GROWTH OBTAINED AFTER 96 HOURS, INCUBATION TO CONTINUE FOR 1 DAYS. 06/04/16 21:00 Stool Clostridium difficile Antigen (GARCIA) - Final 06/04/16 21:00 Stool Clostridium difficile Toxin Assay - Final 06/05/16 07:47 Urine For Antigen Detection Legionella Antigen - Final 06/05/16 07:47 Urine For Antigen Detection Streptococcus pneumoniae Antigen (M - Final 06/03/16 06:30 Sputum - Expectorated Gram Stain - Final 06/03/16 06:30 Sputum - Expectorated Sputum Culture - Final NORMAL RESPIRATORY LAURY 06/03/16 06:30 Urine - Urine Clean Catch Urine Culture - Final NO GROWTH OBTAINED 06/02/16 18:00 Nasopharyngeal Swab Influenza Types A,B Antigen (GARCIA) - Final , + influenza A 06/02/16 18:00 Nasopharyngeal Swab - Final IMAGING ct of chest, several billateral lower lobe infilitrates chest xray, no significant change since 10/06, no infilitrate, chronic left lower lobe changes ct of sinus chronic sinusitis, superimposed acute sphenoid and frontal sinusitis \ ECHO, LVEF 55%, moderate LVH, severe aortic stenosis HOSPITAL COURSE: Patient was noted to febrile with leukocytosis upon admission. She was admitted for sepsis secondary to influenza B. She was placed on tamiflu (renal dose) and given gentle IV hydration. blood and urine cultures negative to date. CT scan of chest resulted as several bilateral lower lobe infiltrates. zithromax and rocephin was given likely seconday bacterial bronchitis from influenza A. ID consulted and followed, Dr Orona. She was started on scheduled duoneb nebulizers. Patient was given supplemental o2. Spo2 was kept above 92% with supplemantal oxygen. 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 She has a known history of severe aortic stenosis (s/p stent). she was noted have a elevated bnp. Patient remained euvolemic throughout hospitalization. She has a past medical history of hypothyroidism. TSH and T4 was WNL. Synthroid was continued throughout hospitalization. Date of Admission:06/02/16 Date of Discharge: 06/07/16 Minutes to complete discharge: 45 Discharge Summary Reason For Visit: CHRONIC LYMPHOCYTIC LEUK & FEVER, UNSPECIFIED Current Active Problems Aortic stenosis (Acute) CLL (chronic lymphocytic leukemia) (Acute) Cough (Acute) Fever (Acute) Fever and chills (Acute) Influenza B (Acute) Volume depletion (Acute) Condition: Improved - Instructions Diet, Activity, Other Instructions: resume regular diet take last dose of tamiflu tommorow take levaquin for the next 7 days, please take levaquin with food albuterol nebulizer every 6 hours as needed for shortness of breath please follow up with your primary care physician, Dr Man within 1 week if chest pain, shortness of breath, or fever develops please return to the emergency department Referrals: Luis Carlos Orona MD [Staff Physician] - Edward Pettit MD [Staff Physician] - Efrain Man MD [Staff Physician] - 1 Week Disposition: HOME - Home Medications Comprehensive Discharge Medication List: Ambulatory Orders Promethazine HCl/Codeine [Prometh-Codein 6.25-10 mg/5 ml] 5 ml PO 06/02/16 Acetaminophen [Tylenol .Regular Strength -] 650 mg PO Q6H PRN #0 tablet Albuterol 0.083% Nebulizer Isela [Ventolin 0.083% Nebulizer Soln -] 1 amp NEB Q6H PRN #30 amp 06/07/16 Guaifenesin [Robitussin -] 10 ml PO Q4H PRN #30 cup 06/07/16 Levofloxacin [Levaquin -] 250 mg PO DAILY #7 tablet 06/07/16 Oseltamivir Phosphate [Tamiflu -] 30 mg PO HS #1 capsule 06/07/16 Ranitidine [Zantac -] 150 mg PO DAILY tablet 06/07/16 Problem List - Problems (1) Fever and chills Code(s): R50.9 - FEVER, UNSPECIFIED (2) Aortic stenosis Code(s): I35.0 - NONRHEUMATIC AORTIC (VALVE) STENOSIS Qualifiers: Cardiac valve disease etiology: nonrheumatic Qualified Code(s): I35.0 - Nonrheumatic aortic (valve) stenosis (3) CLL (chronic lymphocytic leukemia) Code(s): C91.10 - CHRONIC LYMPHOCYTIC LEUK OF B-CELL TYPE NOT ACHIEVE REMIS (4) Influenza B Code(s): J10.1 - FLU DUE TO OTH IDENT INFLUENZA VIRUS W OTH RESP MANIFEST This patient is new to me today: No Emergency Visit: No Critical Care patient: No - Discharge Referral Referred to [facility] Yes Physician Referral: Efrain Man MD (Int Med)
== END 2016-06-07 15:45 | disposition home or self-care (01) | DRG 865 ==
LOC: FM/S 17:49
PROVIDERS: ADMIT Internal Medicine; ATTEND Nurse Practitioner Family
DX: J10.89 Influenza due to other identified influenza virus with other manifestations (principal); J15.9 Unspecified bacterial pneumonia; C91.10 Chronic lymphocytic leukemia of B-cell type not having achieved remission; D80.1 Nonfamilial hypogammaglobulinemia; A31.0 Pulmonary mycobacterial infection; I35.0 Nonrheumatic aortic (valve) stenosis; R00.0 Tachycardia, unspecified
CPT/HCPCS: 36415; 70486-TC; 71010-TC; 71250-TC; 80048; 80053; 81003; 81015; 83735; 83880; 84100; 84443; 85025; 85027; 85610; 86140; 87040; 87070; 87086; 87205; 87254; 87324; 87449; 87804; 87899; 93005; 93010; 93306-TC; 94640; 94761; 97116-GP; 97161-GP; J1644

== ENCOUNTER 2016-08-11 09:52 | Day surgery (SDC) | payer OTHER, MEDICARE ==
[2016-08-11] MEDS ORDERED: ACETAMINOPHEN 325 MG TABLET (FP) PO ONE (10:30)
[2016-08-11] MEDS ORDERED: diphenhydrAMINE HCL 25 MG CAPSULE (FP) PO ONE (10:30)
[2016-08-11] MEDS ORDERED: IMMUNE GLOBULIN IVPB ONE (11:00)
[2016-08-11 11:37] LABS: ALBUMIN 3.5 g/dl (3.5-5.0); ALK PHOS 71 U/L (32-92); ANION GAP 9 (8-16); BILIRUBIN,DIRECT 0.1 mg/dl (0.0-0.2); BILIRUBIN,TOTAL 0.6 mg/dl (0.2-1.0); CALCIUM 8.7 mg/dl (8.4-10.2); CO2 24 mmol/L (22-28); CREATININE 1.2 mg/dl (0.6-1.3); GLUCOSE,RANDOM 135 mg/dl (74-106); SGOT/AST 20 U/L (10-42); SGPT/ALT 10 U/L (10-40); TOT PROT 5.3 g/dl (6.4-8.3)
[2016-08-11 12:03] LABS: MCH 25.3 pg (25.7-33.7); MEAN CELL VOLUME 78.9 fl (80-96); MEAN PLT VOLUME 7.9 fl (7.5-11.1); PLATELET COUNT 98 K/MM3 (134-434); RDW 18.1 % (11.6-15.6); WHITE BLOOD COUNT 7.3 K/mm3 (4.0-10.8)
[2016-08-11 12:45] LABS: THYROID STIMULATING HORMONE 3.46 uIU/ml (0.358-3.74)
[2016-08-11 14:52] LABS: C-REACTIVE PROTEIN < 0.3 MG/DL (0.00-0.3)
[2016-08-11 14:56] LABS: PLATELET ESTIMATE ADEQUATE (NORMAL)
[2016-08-11 14:57] LABS: ANISOCYTOSIS 1+
[2016-08-11 15:49] VITALS: BP 110/74; PULSE 78; TEMP 99
== END 2016-08-11 16:16 | disposition home or self-care (01) ==
LOC: FINFUSION 09:52 → FM/S 09:54 → FINFUSION 16:16
PROVIDERS: ATTEND Internal Medicine
PROC: 3E033WK Introduction of Immunostimulator into Peripheral Vein, Percutaneous (ICD-10-PCS; principal; 2016-08-11)
DX: D80.1 Nonfamilial hypogammaglobulinemia (principal)
CPT/HCPCS: 96365; 96366; J1561; 36415; 80053; 80076; 82306; 84443; 85027; 85651; 86140; 96367

== ENCOUNTER 2017-01-01 10:12 | Day surgery (SDC) | payer OTHER, MEDICARE ==
[2017-01-01] MEDS ORDERED: diphenhydrAMINE HCL 25 MG CAPSULE (FP) PO SCH (10:45)
[2017-01-01] MEDS ORDERED: ACETAMINOPHEN 325 MG TABLET (FP) PO SCH (10:45)
[2017-01-01] MEDS ORDERED: IMMUNE GLOBULIN IVPB ONE (11:30)
[2017-01-01 12:16] LABS: ALBUMIN 3.7 g/dl (3.5-5.0); ALK PHOS 63 U/L (32-92); ANION GAP 7 (8-16); BILIRUBIN,TOTAL 0.5 mg/dl (0.2-1.0); CALCIUM 8.7 mg/dl (8.4-10.2); CO2 26 mmol/L (22-28); CREATININE 1.2 mg/dl (0.6-1.3); GLUCOSE,RANDOM 97 mg/dl (74-106); SGOT/AST 21 U/L (10-42); SGPT/ALT 11 U/L (10-40); TOT PROT 5.8 g/dl (6.4-8.3)
[2017-01-01 12:19] LABS: ALBUMIN 3.7 g/dl (3.5-5.0); ALK PHOS 63 U/L (32-92); BILIRUBIN,TOTAL 0.6 mg/dl (0.2-1.0); SGOT/AST 23 U/L (10-42); SGPT/ALT 11 U/L (10-40); TOT PROT 5.6 g/dl (6.4-8.3)
[2017-01-01 12:24] LABS: PH,URINE 5.5 (4.5-8); URINE APPEARANCE Clear; URINE BILIRUBIN Negative (NEGATIVE); URINE BLOOD Negative (NEGATIVE); URINE GLUCOSE (UA) Negative (NEGATIVE); URINE KETONE Negative (NEGATIVE); URINE LEUK ESTERASE Negative (NEGATIVE); URINE NITRITE Negative (NEGATIVE); URINE PROTEIN Negative (NEGATIVE); URINE UROBILINOGEN 0.2 (0.2-1.0)
[2017-01-01 12:28] LABS: URINE COLOR YELLOW
[2017-01-01 12:49] LABS: BILIRUBIN,DIRECT < 0.2 mg/dl (0.0-0.2)
[2017-01-01 13:51] VITALS: BP 121/48; PULSE 73; TEMP 98
[2017-01-01 14:21] LABS: MCHC 33.1 g/dl (32.0-36.0); MEAN CELL VOLUME 81.4 fl (80-96); MEAN PLT VOLUME 8.6 fl (7.5-11.1); PLATELET COUNT 104 K/MM3 (134-434); RDW 17.4 % (11.6-15.6); WHITE BLOOD COUNT 8.1 K/mm3 (4.0-10.8)
[2017-01-01 14:27] LABS: C-REACTIVE PROTEIN < 0.3 MG/DL (0.00-0.3)
[2017-01-01 14:36] LABS: THYROID STIMULATING HORMONE 4.53 uIU/ml (0.358-3.74)
== END 2017-01-01 17:10 | disposition home or self-care (01) ==
LOC: FINFUSION 10:12 → FM/S 10:13 → FINFUSION 17:10
PROVIDERS: ATTEND Internal Medicine
PROC: 3E033WK Introduction of Immunostimulator into Peripheral Vein, Percutaneous (ICD-10-PCS; principal; 2017-01-01)
DX: D83.9 Common variable immunodeficiency, unspecified (principal)
CPT/HCPCS: 36415; 80053; 80076; 81003; 82306; 84443; 85027; 85651; 86140; 96360; 96361; 96365; 96366; J1561

== ENCOUNTER 2018-01-07 09:03 | Day surgery (SDC) | payer OTHER, MEDICARE ==
[2018-01-07] MEDS ORDERED: ACETAMINOPHEN 325 MG TABLET (FP) PO ONE (10:15)
[2018-01-07] MEDS ORDERED: diphenhydrAMINE HCL 25 MG CAPSULE (FP) PO ONE (10:15)
[2018-01-07 10:18] VITALS: BP 122/44; PULSE 73; TEMP 98.3
[2018-01-07 10:20] LABS: HEMATOCRIT 32.9 % (32.4-45.2); MCH 26.9 pg (25.7-33.7); MCHC 33.4 g/dl (32.0-36.0); MEAN CELL VOLUME 80.4 fl (80-96); MEAN PLT VOLUME 7.8 fl (7.5-11.1); PLATELET COUNT 108 K/MM3 (134-434); RBC 4.09 M/mm3 (3.60-5.2); RDW 17.7 % (11.6-15.6); WHITE BLOOD COUNT 10.1 K/mm3 (4.0-10.8)
[2018-01-07] MEDS ORDERED: IMMUNE GLOBULIN 30 GM/300 ML IVPB ONE (10:30)
[2018-01-07 11:05] LABS: ALBUMIN 3.6 g/dl (3.5-5.0); ALK PHOS 57 U/L (32-92); ANION GAP 12 MMOL/L (8-16); BILIRUBIN,TOTAL 0.7 mg/dl (0.2-1.0); BLOOD UREA NITROGEN 20 mg/dl (7-18); CALCIUM 8.6 mg/dl (8.4-10.2); CHLORIDE 106 mmol/L (98-107); CO2 25 mmol/L (22-28); CREATININE 1.2 mg/dl (0.6-1.3); GLUCOSE,RANDOM 144 mg/dl (74-106); POTASSIUM 4.2 mmol/L (3.5-5.1); SGOT/AST 20 U/L (10-42); SGPT/ALT 11 U/L (10-40); SODIUM 143 mmol/L (136-145); TOT PROT 5.5 g/dl (6.4-8.3)
[2018-01-07 11:06] LABS: BILIRUBIN,DIRECT < 0.2 mg/dL (0.0-0.3)
[2018-01-07 11:41] LABS: SMUDGE CELLS MANY
== END 2018-01-07 15:55 | disposition home or self-care (01) ==
LOC: FINFUSION 09:03 → FM/S 09:04 → FINFUSION 15:55
PROVIDERS: ATTEND Internal Medicine
PROC: 3E033GC Introduction of Other Therapeutic Substance into Peripheral Vein, Percutaneous Approach (ICD-10-PCS; principal; 2018-01-07)
DX: D80.1 Nonfamilial hypogammaglobulinemia (principal)
CPT/HCPCS: 36415; 80053; 80076; 82306; 84443; 85025; 86140; 96365; 96366; J1561

== ENCOUNTER 2018-02-07 13:35 | Inpatient (IN) | payer OTHER, MEDICARE ==
[2018-02-07] MEDS ORDERED: ALBUTEROL SO4 2.5/IPRATROPIUM 0.5 INH SOL 3 ML VIAL.NEB. NEB PRN (14:37)
[2018-02-07 16:11] VITALS: BMI 23.9
[2018-02-07 16:35] LABS: HEMATOCRIT 34.9 % (32.4-45.2); HEMOGLOBIN 11.7 GM/dl (10.7-15.3); MCH 26.9 pg (25.7-33.7); MCHC 33.5 g/dl (32.0-36.0); MEAN CELL VOLUME 80.4 fl (80-96); MEAN PLT VOLUME 7.7 fl (7.5-11.1); PLATELET COUNT 206 K/MM3 (134-434); RBC 4.34 M/mm3 (3.60-5.2); RDW 17.5 % (11.6-15.6); WHITE BLOOD COUNT 27.5 K/mm3 (4.0-10.8)
[2018-02-07 16:47] LABS: ALBUMIN 3.5 g/dl (3.5-5.0); ALK PHOS 60 U/L (32-92); ANION GAP 13 MMOL/L (8-16); BILIRUBIN,TOTAL 0.6 mg/dl (0.2-1.0); BLOOD UREA NITROGEN 37 mg/dl (7-18); CALCIUM 8.7 mg/dl (8.4-10.2); CHLORIDE 104 mmol/L (98-107); CO2 21 mmol/L (22-28); CREATININE 1.3 mg/dl (0.6-1.3); GLUCOSE,RANDOM 132 mg/dl (74-106); POTASSIUM 3.8 mmol/L (3.5-5.1); SGOT/AST 18 U/L (10-42); SGPT/ALT 11 U/L (10-40); SODIUM 138 mmol/L (136-145); TOT PROT 5.8 g/dl (6.4-8.3); URIC ACID 11.2 mg/dl (2.6-7.2)
--- NOTE | 2018-02-07 16:53 | HP ---
Admitting History and Physical - Admission Chief Complaint: dyspnea at rest and with exertion History of Present Illness: 87 yo female with PMH of Ao Stenosis, MAC, Hypothyroidism, and CLL (s/p chemotherapy -Rituxan-?), in remission for years, off treatment now and receiving Immunoglobulin infusions periodically (her last infusion was administered in December 2017) presented to my office 2 weeks ago with complaints of rhinorrhea, nasal congestion and cough. Due to her past history of MAC, the patient was placed on Zithromax 1 week ago . A CXR was performed and it showed right parahilar infiltrate and a small amount of pleural fluid at the left lung base. Augmentin was added and blood work was performed. A CBC with diff showed [place] 02.01.[place] [address] [place] [address] on 02.06.18. Immunoelectrophoresis on 02/01/18 showed IgA 8, IgG 582, IgM 10 and IgE < 2. Lasix 20 mg po was given last night and since it helped, with no drop in the blood pressure and preservation of the kidney function the dose will be repeated today. Since the patient continued to have dyspnea and last night she developed orthopnea she came in for management and further investigations of her current medical condition. Limitations to Obtaining History: No Limitations - Past Medical History Cardiovascular: Yes: Aortic Stenosis Endocrine: Yes: Hypothyroidism - Advance Directives Advance Directives: Yes: Living Will, Health Care Proxy - Smoking History Smoking history: Never smoked Have you smoked in the past 12 months: No Aproximately how many cigarettes per day: 0 - Alcohol/Substance Use Hx Alcohol Use: No Home Medications - Allergies Allergies/Adverse Reactions: Allergies Allergy/AdvReac Type Severity Reaction Status Date / Time No Known Allergies Allergy Verified 10/05/15 13:23 - Home Medications Home Medications: Ambulatory Orders Promethazine HCl/Codeine [Prometh-Codein 6.25-10 mg/5 ml] 5 ml PO 06/02/16 Acetaminophen [Tylenol .Regular Strength -] 650 mg PO Q6H PRN #0 tablet Albuterol 0.083% Nebulizer Isela [Ventolin 0.083% Nebulizer Soln -] 1 amp NEB Q6H PRN #30 amp 06/07/16 Guaifenesin [Robitussin -] 10 ml PO Q4H PRN #30 cup 06/07/16 Oseltamivir Phosphate [Tamiflu -] 30 mg PO HS #1 capsule 06/07/16 Ranitidine [Zantac -] 150 mg PO DAILY tablet 06/07/16 levoFLOXacin [Levaquin -] 250 mg PO DAILY #7 tablet 06/07/16 Albuterol 0.083% Nebulizer Iesla [Ventolin 0.083% Nebulizer Soln -] 1 neb NEB Q4H PRN #120 vial 04/18/17 Albuterol Sulfate Inhaler - [Ventolin Hfa Inhaler -] 2 inh PO Q4H PRN #1 inh Review of Systems - Review of Systems Constitutional: reports: Loss of Appetite, Weakness Neck: denies: Lumps Cardiovascular: reports: Shortness of Breath, Other (edema of the lower extremities) Respiratory: reports: Orthopnea, SOB, SOB on Exertion. denies: Wheezing Integumentary: reports: No Symptoms Neurological: reports: No Symptoms Physical Examination Vital Signs: Vital Signs Temperature 97.6 F 02/07/18 14:00 Pulse Rate 93 H 02/07/18 14:00 Respiratory Rate 19 02/07/18 14:00 Blood Pressure 110/46 L 02/07/18 14:00 O2 Sat by Pulse Oximetry (%) Constitutional: Yes: Calm, Anxious, Moderate Distress Eyes: Yes: Conjunctiva Clear, EOM Intact HENT: Yes: Atraumatic, Normocephalic Neck: Yes: Supple, Trachea Midline Cardiovascular: Yes: Regular Rate and Rhythm, S1, S2 Respiratory: Yes: Regular, CTA Bilaterally, Cough (raRE COUGH), On Nasal O2, Orthopnea, SOB, SOB on Exertion. No: Rales, Rhonchi, Stridor, Wheezes Gastrointestinal: Yes: Normal Bowel Sounds, Soft, Abdomen, Obese. No: Hepatomegaly, Splenomegaly ...Rectal Exam: Yes: Deferred Edema: Yes Edema: LLE: 2+, RLE: 2+ Peripheral Pulses WNL: Yes Neurological: Yes: Alert, Oriented Psychiatric: Yes: Alert, Oriented Imaging - Results Chest X-ray: Other (UNCAHNGED RIGHT BASE INFILTRATE) EKG: Other (NSR, 90 b/min, JAKE, LVH, ST elevation V2, V3, non psecific St- T changes) Problem List - Problems (1) Right middle lobe pneumonia Assessment/Plan: received Zithromax and Augmentin po sputum cultures, Gram stain, and AFB Duo NEb as needed Ct scan of the chest to further define the lung involvement Code(s): J18.1 - LOBAR PNEUMONIA, UNSPECIFIED ORGANISM (2) CLL (chronic lymphocytic leukemia) Assessment/Plan: consult Hemonc concerning rise in the WBC Code(s): C91.10 - CHRONIC LYMPHOCYTIC LEUK OF B-CELL TYPE NOT ACHIEVE REMIS (3) Aortic stenosis Assessment/Plan: patient was told that it is severe minor elements of congestion minimal dose of 20 mg LAsix given po to help with dyspnea monitor renal function Code(s): I35.0 - NONRHEUMATIC AORTIC (VALVE) STENOSIS Qualifiers: Cardiac valve disease etiology: nonrheumatic Qualified Code(s): I35.0 - Nonrheumatic aortic (valve) stenosis (4) CHF (congestive heart failure) Assessment/Plan: Lasix 20 mg as needed daily BNP CMP Code(s): I50.9 - HEART FAILURE, UNSPECIFIED (5) Hypothyroidism Assessment/Plan: continue Synthrid daily Code(s): E03.9 - HYPOTHYROIDISM, UNSPECIFIED (6) Edema Assessment/Plan: venous doppler to R/o DVT Code(s): R60.9 - EDEMA, UNSPECIFIED
[2018-02-07 17:09] LABS: PLATELET ESTIMATE ADEQUATE; SMUDGE CELLS MANY
[2018-02-07] MEDS ORDERED: FUROSEMIDE 20 MG TABLET (FP) PO ONE (17:11)
[2018-02-07] MEDS ORDERED: VANCOMYCIN 1 GRAM (PRE-DOCKED) 1,000 MG/250 ML BAG IVPB ONE ×2 (18:11→22:00)
--- NOTE | 2018-02-07 18:11 | PN ---
Progress Note (short form) - Note Progress Note: ID Consult dictated Pneumonia CLL in remission Hx pulmonary ZAK Azotemia Await c/s Empiric zosyn/ zithromax + stat dose vancomycin
[2018-02-07] MEDS: PIPERACILLIN/TAZOB 3.375 GM 3.375 GM in DEXTROSE 5%-WATER - 50 ML IVPB SCH (18:42)
--- NOTE | 2018-02-07 18:47 | CONS ---
DATE OF CONSULTATION: DATE OF DICTATION: 02/07/2018 INFECTIOUS DISEASE CONSULTATION HISTORY OF PRESENT ILLNESS: Patient is an 87-year-old female with a history of CLL in remission, history of hypogammaglobulinemia and atypical microbacterial infection of the lung evaluated for pneumonia. Approximately 2 weeks ago, she had presented to her primary care physician with complaints of rhinorrhea, nasal congestion, cough. She was prescribed Zithromax for a respiratory tract infection. She did not improve clinically and a chest x-ray revealed a right perihilar infiltrate. Augmentin was added to the Zithromax. She now presents with increasing shortness of breath, cough productive of whitish sputum, subjective fever, diaphoresis. Patient is noted to be diaphoretic and short of breath at rest in bed on nasal cannula. She has history of CLL and has been in remission for years. She received Rituxan 10 years ago. She receives IVIG, last dose of which was in December of 2017. Of note, she has had an atypical mycobacterial pulmonary infection in the past. 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 Her treatment history is not available at this time. No known ill contacts. Patient lives at home in the community. She is a nonsmoker. CBC done as an outpatient revealed a white count of 40,000 with 85% lymphocytes. PAST MEDICAL HISTORY: Positive for CLL in remission, hypogammaglobulinemia, aortic stenosis, atypical microbacterial infection of the lung, hypothyroidism. ALLERGIES: No known allergies. MEDICATION: At the present time include Zithromax, DuoNeb, Synthroid. SOCIAL HISTORY: As above. SYSTEMS REVIEW: Neurologic: No loss of consciousness, seizure activity, focal weakness. Cardiac: Negative for chest pain or palpitations. Respiratory: As per HPI. Gastrointestinal: Negative vomiting or diarrhea. Genitourinary: Negative for urinary tract infection. LABORATORY DATA: White count 27.5, 17 neutrophils, 5 bands, 70 lymphocytes. Hematocrit 34.9, platelet count 206. BUN 37, creatinine 1.3. Uric acid is 11.2. PHYSICAL EXAMINATION: General: On exam, she is awake, she is supine in bed. She appears slightly dyspneic at rest on nasal cannula. Patient appears diaphoretic, slightly tachypneic, positive cough. Vital signs: Temperature 97.6, blood pressure 110/46, pulse 93 regular, respirations 19 per minute. HEENT: Sclerae anicteric. Neck: Supple. Cardiovascular: Heart sounds S1, S2. No murmur. Lungs: Bilateral rhonchi. Crepitations at the bases bilaterally. Abdomen: Soft, no tenderness elicited, no mass, rebound, or rigidity. Extremities: Negative for edema. IMPRESSION: 1. Bibasilar pneumonia. 2. Chronic lymphocytic leukemia in remission. 3. History of pulmonary atypical mycobacterial infection. 4. Azotemia. Obtain blood cultures, urine, legionella, and pneumococcal antigens, nasopharyngeal swab for influenza, await official reading of CAT scan, empiric antibiotic coverage with Zosyn, Zithromax, and stat dose vancomycin. Case discussed with family members present at the time of the examination. Thank you for the kind referral. RUSTY EDWARDS M.D. [id number]
--- NOTE | 2018-02-07 19:00 | CON.CARD ---
Consult Consult Specialty:: cardio Reason for Consultation:: AV disease - History of Present Illness Chief Complaint: sob History of Present Illness: 87 F here with sob. developed productive cough (white phlegm) and nasal congestion and mild sweats about 2 wks ago. tx'd with abx by dr giraldo--cough improved. notes she was only feeling slightly sob if at all at that time. at some point in the past few days she began feeling very sob. was in [facility] with dtr on sunday and had ravioli dinner in restaurant. the next day she began feeling very breathless when tried to walk anywhere (of note, had been able to walk those usual distances during the prior portion of the weekend with no sob). states dr giraldo gave her po lasix and felt that her sob improved, but then got worse again in past 24-48 hrs. she ate broccoli soup take-out this week which tasted obviously salty, b/c thought it would be soothing to URI. +leg swelling the past few days. PMH: critical chronic pulm MAC infection CLL in remission--on IVIG - Past Medical History Cardio/Vascular: Yes: Aortic Stenosis Endocrine: Yes: Hypothyroidism - Alcohol/Substance Use Hx Alcohol Use: No - Smoking History Smoking history: Never smoked Have you smoked in the past 12 months: No Aproximately how many cigarettes per day: 0 Home Medications - Allergies Allergies/Adverse Reactions: Allergies Allergy/AdvReac Type Severity Reaction Status Date / Time No Known Allergies Allergy Verified 10/05/15 13:23 - Home Medications Home Medications: Ambulatory Orders Promethazine HCl/Codeine [Prometh-Codein 6.25-10 mg/5 ml] 5 ml PO 06/02/16 Acetaminophen [Tylenol .Regular Strength -] 650 mg PO Q6H PRN #0 tablet Albuterol 0.083% Nebulizer Isela [Ventolin 0.083% Nebulizer Soln -] 1 amp NEB Q6H PRN #30 amp 06/07/16 Guaifenesin [Robitussin -] 10 ml PO Q4H PRN #30 cup 06/07/16 Oseltamivir Phosphate [Tamiflu -] 30 mg PO HS #1 capsule 06/07/16 Ranitidine [Zantac -] 150 mg PO DAILY tablet 06/07/16 levoFLOXacin [Levaquin -] 250 mg PO DAILY #7 tablet 06/07/16 Albuterol 0.083% Nebulizer Isela [Ventolin 0.083% Nebulizer Soln -] 1 neb NEB Q4H PRN #120 vial 04/18/17 Albuterol Sulfate Inhaler - [Ventolin Hfa Inhaler -] 2 inh PO Q4H PRN #1 inh Family Disease History - Family Disease History Family History: Denies (no known cmp) Review of Systems - Review of Systems Constitutional: denies: Chills, Fever Eyes: denies: Eye Pain HENT: denies: Nasal Congestion Neck: denies: Stiffness Cardiovascular: denies: Palpitations Respiratory: reports: Orthopnea. denies: PND Gastrointestinal: denies: Diarrhea, Rectal Bleeding Genitourinary: denies: Burning, Hematuria Musculoskeletal: denies: Muscle Pain Integumentary: denies: Rash Neurological: denies: Numbness, Seizure, Syncope Endocrine: denies: Excessive Sweating Hematology/Lymphatic: denies: Excessive Bleeding Vital Signs: Vital Signs Temperature 97.6 F 02/07/18 14:00 Pulse Rate 93 H 02/07/18 14:00 Respiratory Rate 19 02/07/18 14:00 Blood Pressure 110/46 L 02/07/18 14:00 O2 Sat by Pulse Oximetry (%) Constitutional: Yes: Well Nourished, No Distress Eyes: No: Sclera Icterus HENT: No: Nasal Congestion Neck: No: Decreased ROM Respiratory: Yes: Rales (R base). No: Accessory Muscle Use Gastrointestinal: Yes: Normal Bowel Sounds. No: Distention, Hepatomegaly, Palpable Mass, Tenderness Cardiovascular: Yes: Regular Rate and Rhythm JVD: Yes Carotid Bruit: No PMI: Non-Displaced Heart Sounds: Yes: S1 (decr intensity sounds), S2. No: Gallop Murmur: Yes: Systolic Murmur (soft NEEL audible LUSB). No: Diastolic Murmur Musculoskeletal: Yes: Other (No kyphosis) Extremities: No: Cold, Cyanosis Edema: Yes (moderate nonpitting) Peripheral Pulses: 2+ Left Carotid, 2+ Right Carotid, 2+ Left Doralis Pedis, 2+ Right Dorsalis Pedis Integumentary: No: Jaundice Neurological: Yes: Alert, Oriented (x3) Psychiatric: No: Agitated - Other Data Labs, Other Data: CBC, BMP 02/07/18 16:00 02/07/18 16:00 Laboratory Tests 06/02/16 06/02/16 02/07/18 18:00 18:00 16:00 WBC 15.2 H D 27.5 H Hgb 11.5 D 11.7 Plt Count 166 D 206 Sodium 134 L Potassium 5.0 Carbon Dioxide 25 BUN 22 H Creatinine 1.4 H D Creat Clearance w eGFR AST 32 D ALT 16 D 02/07/18 16:00 WBC Hgb Plt Count Sodium 138 Potassium 3.8 Carbon Dioxide 21 L BUN 37 H Creatinine 1.3 Creat Clearance w eGFR 38.75 AST 18 ALT 11 Assessment/Plan CXR: bilat effusions. incr'd interstitial markings. no vascular redistribution. no genoveva B lines--similar to 02/01 CT chest, not yet read--images reviewed: bilateral moderate effusions, + fluid in fissures. hazy opacities ? pulm edema. pleural effusions, acute valvular HFpEF, ? PNA -known critical since 2016. -pt appears to be in acute CHF, triggered by recent diet sodium load, +/- contribution from recent URI tipping her over. new leg swelling and MUKHERJEE tracks with timing of oral sodium loads in diet, and had partial response to po lasix as outpt, then sx's worsened (? b/c lasix dose was decreased--pt uncertain on this point). -suspect mild JVD on exam and + hepatojugular reflux c/w high right-sided pressures. -received lasix 20 po x 1 here, only minimal UOP since. will give trial dose lasix 40 iv x 1 tonight--suspect she will diurese significantly to this (lasix naive). will monitor weight trend from today to tomorrow and subjective UOP response. -trend daily bun/creat while diuresing. -f/u CT report--images to me appear c/w congestion and effusions. r/o infiltrate as well -BNP pending (baseline 10K) -IV abx coverage per ID -no IV fluids Ao stenosis: -pt diagnosed with critical approx 2 yrs ago (est CRISTINO 0.4 cm2). -was asymptomatic with reasonable functional capacity at that time, and since ( per dtr). 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
[2018-02-07] MEDS: AZITHROMYCIN IVPB 500 MG/250 ML BAG IVPB SCH (19:09)
[2018-02-07] MEDS ORDERED: FUROSEMIDE 40 MG/4 ML INJECTABLE VIAL IVPUSH ONE (19:25)
[2018-02-07] MEDS: ALBUTEROL SO4 2.5/IPRATROPIUM 0.5 INH SOL 3 ML VIAL.NEB. NEB SCH (20:35)
--- NOTE | 2018-02-07 21:37 | CONSULT ---
Consult Consult Specialty:: heme onc Reason for Consultation:: CLL - History of Present Illness Chief Complaint: sob History of Present Illness: 87 yof w 30+ year h/o CLL. She was treated at 76 yo w R-CVP? in setting of fatigue/wt loss under direction of Dr La. Reportedly achieved a remission and has had no further tx and has declined addl. There is h/o hypogammaglobulinemia and she is treated w maintenance IVIG. No frequent infxns. Adm w now subacute SOB. Txd as outpt w azithro-> augmentin. She notes that cough has improved but dyspnea persists severely limiting ambulation. No fever or n sweats. Poor steven w wt loss over this period and she notes feeling exhausted. WBC yest 42.2 w mostly lymphocytes, no blasts reported. This is up from her baseline of 10K - History Source History Provided By: Patient, Family Member Limitations to Obtaining History: No Limitations - Past Medical History Cardio/Vascular: Yes: Aortic Stenosis Pulmonary: Yes: Other (pulm MAC, bronchiectasis?) Endocrine: Yes: Hypothyroidism - Alcohol/Substance Use Hx Alcohol Use: No - Smoking History Smoking history: Never smoked Have you smoked in the past 12 months: No Aproximately how many cigarettes per day: 0 Home Medications - Allergies Allergies/Adverse Reactions: Allergies Allergy/AdvReac Type Severity Reaction Status Date / Time No Known Allergies Allergy Verified 10/05/15 13:23 - Home Medications Home Medications: Ambulatory Orders Promethazine HCl/Codeine [Prometh-Codein 6.25-10 mg/5 ml] 5 ml PO 06/02/16 Acetaminophen [Tylenol .Regular Strength -] 650 mg PO Q6H PRN #0 tablet Albuterol 0.083% Nebulizer Isela [Ventolin 0.083% Nebulizer Soln -] 1 amp NEB Q6H PRN #30 amp 06/07/16 Guaifenesin [Robitussin -] 10 ml PO Q4H PRN #30 cup 06/07/16 Oseltamivir Phosphate [Tamiflu -] 30 mg PO HS #1 capsule 06/07/16 Ranitidine [Zantac -] 150 mg PO DAILY tablet 06/07/16 levoFLOXacin [Levaquin -] 250 mg PO DAILY #7 tablet 06/07/16 Albuterol 0.083% Nebulizer Isela [Ventolin 0.083% Nebulizer Soln -] 1 neb NEB Q4H PRN #120 vial 04/18/17 Albuterol Sulfate Inhaler - [Ventolin Hfa Inhaler -] 2 inh PO Q4H PRN #1 inh Physical Exam Vital Signs: Vital Signs Temperature 97.6 F 02/07/18 14:00 Pulse Rate 93 H 02/07/18 14:00 Respiratory Rate 19 02/07/18 14:00 Blood Pressure 110/46 L 02/07/18 14:00 O2 Sat by Pulse Oximetry (%) Constitutional: Yes: Calm, Other (no p LA) Eyes: Yes: WNL HENT: Yes: WNL Neck: Yes: Supple Cardiovascular: Yes: Regular Rate and Rhythm Respiratory: Yes: Other (L mid field rhonchi mild) Gastrointestinal: Yes: Soft Extremities: Yes: WNL Edema: Yes Edema: LLE: 1+, RLE: 1+ Psychiatric: Yes: WNL Labs: CBC, BMP 02/07/18 16:00 02/07/18 16:00 Assessment/Plan Pt w long-standing CLL adm w dyspnea counts noted to be elev above baseline; may be prog of CLL vs related to current process (atyp infxn?); not c/w transformation to an acute leuk monitor cbc, send LDH, UA, flow cytometry not neutropenic for w/u of dyspnea following w you d/w pt/dtr/Dr Salazar
[2018-02-07] MEDS: LACTOBACILLUS ACIDOPHILUS 1 TABLET PO SCH (22:11)
[2018-02-08] MEDS: PIPERACILLIN/TAZOB 3.375 GM 3.375 GM in DEXTROSE 5%-WATER - 50 ML IVPB SCH ×2 (02:21→10:15)
[2018-02-08] MEDS: LEVOTHYROXINE NA 25 MCG TABLET (FP) PO SCH (06:37)
[2018-02-08 08:16] LABS: BASO % 0.5 % (0-2.0); EOS % 0.7 % (0-4.5); HEMOGLOBIN 10.6 GM/dl (10.7-15.3); LYMPH % 81.9 % (8-40); MCH 27.4 pg (25.7-33.7); MCHC 34.3 g/dl (32.0-36.0); MEAN CELL VOLUME 79.9 fl (80-96); MEAN PLT VOLUME 7.4 fl (7.5-11.1); MONO % 6.5 % (3.8-10.2); NEUT % 10.4 % (42.8-82.8); PLATELET COUNT 149 K/MM3 (134-434); RBC 3.88 M/mm3 (3.60-5.2); RDW 17.4 % (11.6-15.6); WHITE BLOOD COUNT 24.5 K/mm3 (4.0-10.8)
[2018-02-08 08:37] LABS: ALBUMIN 3.1 g/dl (3.5-5.0); ALK PHOS 52 U/L (32-92); ANION GAP 8 MMOL/L (8-16); BILIRUBIN,TOTAL 0.8 mg/dl (0.2-1.0); BLOOD UREA NITROGEN 36 mg/dl (7-18); CALCIUM 8.3 mg/dl (8.4-10.2); CHLORIDE 107 mmol/L (98-107); CO2 23 mmol/L (22-28); CREATININE 1.4 mg/dl (0.6-1.3); GLUCOSE,RANDOM 106 mg/dl (74-106); POTASSIUM 3.3 mmol/L (3.5-5.1); SGOT/AST 19 U/L (10-42); SGPT/ALT 10 U/L (10-40); SODIUM 138 mmol/L (136-145); TOT PROT 5.3 g/dl (6.4-8.3)
--- NOTE | 2018-02-08 08:37 | PN ---
Progress Note, Physician Chief Complaint: sob History of Present Illness: miserable due to woken up often overnight. urinated 3 times after lasix 40 iv last night. no improvement in sob noted--though no severe breathlessness episodes no cp, palpitations, syncope no cigs - Current Medication List Current Medications: Active Medications Albuterol/Ipratropium (Duoneb -) 1 amp NEB Q4H PRN PRN Reason: SHORTNESS OF BREATH Albuterol/Ipratropium (Duoneb -) 1 amp NEB RTID [facility] Last Admin: 02/07/18 20:35 Dose: 1 amp Piperacillin Sod/Tazobactam (Sod 3.375 gm/ Dextrose) 50 mls @ 100 mls/hr IVPB Q8H-IV JAYSON; Protocol Last Admin: 02/08/18 02:21 Dose: 100 mls/hr Azithromycin (Zithromax 500mg Ivpb (Pre-Docked)) 500 mg in 250 mls @ 250 mls/ hr IVPB DAILY [facility] Last Admin: 02/07/18 19:09 Dose: 250 mls/hr Lactobacillus Acidophilus (Bacid -) 1 tab PO BID [facility] Last Admin: 02/07/18 22:11 Dose: 1 tab Levothyroxine Sodium (Synthroid -) 25 mcg PO DAILY@0700 [facility] Last Admin: 02/08/18 06:37 Dose: 25 mcg - Objective Vital Signs: Vital Signs Temperature 97.9 F 02/08/18 07:05 Pulse Rate 83 02/08/18 07:05 Respiratory Rate 19 02/08/18 07:05 Blood Pressure 106/49 L 02/08/18 07:05 O2 Sat by Pulse Oximetry (%) 95 02/08/18 07:03 Constitutional: Yes: No Distress, Calm Eyes: No: Sclera Icterus HENT: No: Nasal Congestion Cardiovascular: Yes: Regular Rate and Rhythm, JVD (possible), Murmur (soft sounds, soft syst murmur), S1, S2, Other (PMI non diplaced). No: Gallop Respiratory: Yes: CTA Bilaterally. No: Accessory Muscle Use, Rales, Wheezes Gastrointestinal: Yes: Normal Bowel Sounds, Soft. No: Tenderness Musculoskeletal: Yes: Other (No kyphosis) Extremities: No: Cold Edema: Yes (mild nonpitting ankles) Integumentary: No: Jaundice Neurological: Yes: Alert, Oriented (x3) Psychiatric: No: Agitated Assessment/Plan CXR: bilat effusions. incr'd interstitial markings. no vascular redistribution. no genoveva B lines--similar to 02/01 CT chest, not yet read--images reviewed: bilateral moderate effusions, + fluid in fissures. hazy opacities ? pulm edema. pleural effusions, acute valvular HFpEF, ? PNA -known critical since 2016. -pt appears to be in acute CHF, triggered by recent diet sodium load, +/- contribution from recent URI tipping her over. new leg swelling and MUKHERJEE tracks with timing of oral sodium loads in diet, and had partial response to po lasix as outpt, then sx's worsened (? b/c lasix dose was decreased--pt uncertain on this point). -suspect mild JVD on exam and + hepatojugular reflux c/w high right-sided pressures. -received lasix 20 po x 1 here, only minimal UOP since. will give trial dose lasix 40 iv x 1 tonight--suspect she will diurese significantly to this (lasix naive). will monitor weight trend from today to tomorrow and subjective UOP response. -trend daily bun/creat while diuresing. -BNP 25K (baseline 10K) -02/08: wt down 1 lb. no hypotension. moderate diuretic response to lasix 40 iv x 1 last night. sob unchanged. renal fxn stable today. will give lasix 80 iv x 1 today to observe response. reassess in am, will likely need standing 80 iv qd to bid. -replete K (ordered) - f/u CT chest read (images on my review appear c/w congestion and effusions. r/ o infiltrate as well) -IV abx coverage per ID -no IV fluids Ao stenosis: -pt diagnosed with critical approx 2 yrs ago (est CRISTINO 0.4 cm2). -was asymptomatic with reasonable functional capacity at that time, and since ( per dtr). 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
[2018-02-08] MEDS: ALBUTEROL SO4 2.5/IPRATROPIUM 0.5 INH SOL 3 ML VIAL.NEB. NEB SCH ×3 (09:05→21:25)
--- NOTE | 2018-02-08 09:27 | PN ---
Progress Note, Physician History of Present Illness: Awake, alert No c/o chest pain/ dyspnea/ cough Breathing appears less labored this am on nasal cannula + cough - white sputum No c/o fever/ chills Afebrile WBC 24K 81L Flu swab (-) - Current Medication List Current Medications: Active Medications Albuterol/Ipratropium (Duoneb -) 1 amp NEB Q4H PRN PRN Reason: SHORTNESS OF BREATH Albuterol/Ipratropium (Duoneb -) 1 amp NEB RTID [facility] Last Admin: 02/08/18 09:05 Dose: 1 amp Piperacillin Sod/Tazobactam (Sod 3.375 gm/ Dextrose) 50 mls @ 100 mls/hr IVPB Q8H-IV JAYSON; Protocol Last Admin: 02/08/18 02:21 Dose: 100 mls/hr Azithromycin (Zithromax 500mg Ivpb (Pre-Docked)) 500 mg in 250 mls @ 250 mls/ hr IVPB DAILY [facility] Last Admin: 02/07/18 19:09 Dose: 250 mls/hr Lactobacillus Acidophilus (Bacid -) 1 tab PO BID [facility] Last Admin: 02/07/18 22:11 Dose: 1 tab Levothyroxine Sodium (Synthroid -) 25 mcg PO DAILY@0700 [facility] Last Admin: 02/08/18 06:37 Dose: 25 mcg - Objective Vital Signs: Vital Signs Temperature 97.9 F 02/08/18 07:05 Pulse Rate 83 02/08/18 07:05 Respiratory Rate 19 02/08/18 07:05 Blood Pressure 106/49 L 02/08/18 07:05 O2 Sat by Pulse Oximetry (%) 95 02/08/18 07:03 Constitutional: Yes: No Distress Eyes: Yes: Conjunctiva Clear Cardiovascular: Yes: Regular Rate and Rhythm, S1, S2 Respiratory: Yes: CTA Bilaterally Gastrointestinal: Yes: Normal Bowel Sounds, Soft. No: Tenderness Edema: Yes Edema: LLE: 2+, RLE: 2+ Labs: CBC, BMP 02/08/18 07:35 02/08/18 07:35 Assessment/Plan CHF ? bibasilar pneumonia Bilateral pleural effusions CLL CT chest not yet officially read Await c/s Continue empiric zosyn/ zithromax Cardiology, Oncology follow up
--- NOTE | 2018-02-08 09:31 | EKG ---
Test Reason : Blood Pressure : / mmHG Vent. Rate : 090 BPM Atrial Rate : 090 BPM P-R Int : 148 ms QRS Dur : 102 ms QT Int : 382 ms P-R-T Axes : 049 -05 168 degrees QTc Int : 467 ms NORMAL SINUS RHYTHM POSSIBLE LEFT ATRIAL ENLARGEMENT LEFT VENTRICULAR HYPERTROPHY WITH REPOLARIZATION ABNORMALITY ANTERIOR INFARCT , AGE UNDETERMINED NONSPECIFIC ST ABNORMALITY ABNORMAL ECG WHEN COMPARED WITH ECG OF 02-JUN-2016 20:48, QUESTIONABLE CHANGE IN QRS DURATION ANTERIOR INFARCT IS NOW PRESENT Confirmed by RUSTY SARAH MD ([id number]) on 02/08/2018 9:31:21 AM Referred By: DR VINCENT Confirmed By:RUSTY SARAH MD
[2018-02-08] MEDS: LACTOBACILLUS ACIDOPHILUS 1 TABLET PO SCH ×2 (10:14→21:25)
[2018-02-08] MEDS: AZITHROMYCIN IVPB 500 MG/250 ML BAG IVPB SCH (10:14)
--- NOTE | 2018-02-08 10:21 | ECHO ---
Name: JEFFRuma, EUTILIA Exam:Adult Echocardiogram Study Date: 02/08/2018 08:55 AM Age: 87 yrs Reason For Study: SOB AVS Height: 62 in Weight: 128 lb BSA: 1.6 m2 MMode/2D Measurements & Calculations IVSd: 1.1 cm Ao root diam: 2.0 cm LVIDd: 5.1 cm LA dimension: 3.6 cm LVIDs: 3.9 cm LVPWd: 0.88 cm EDV(Teich): 125.5 ml LVOT diam: 2.0 cm ESV(Teich): 65.2 ml Doppler Measurements & Calculations MV E max mi: 108.2 cm/sec MV A max mi: 89.3 cm/sec MV dec slope: 526.2 cm/sec2 MV E/A: 1.2 Ao V2 max: 521.4 cm/sec LV V1 max P.5 mmHg Ao max P.8 mmHg LV V1 mean P.93 mmHg Ao V2 mean: 425.9 cm/sec LV V1 max: 60.6 cm/sec Ao mean P.8 mmHg LV V1 mean: 45.3 cm/sec Ao V2 VTI: 131.2 cm LV V1 VTI: 14.3 cm CRISTINO(I,D): 0.33 cm2 CRISTINO(V,D): 0.36 cm2 MR max mi: 568.0 cm/sec SV(LVOT): 43.9 ml MR max P.0 mmHg TR max mi: 236.8 cm/sec TR max P.4 mmHg Left Ventricle Left ventricular systolic function is moderate to severely reduced. Ejection Fraction = 40%. There is moderate global hypokinesis of the left ventricle. Septal motion is consistent with conduction abnormality. Right Ventricle The right ventricle is normal in size and function. Atria The left atrium is borderline dilated. Mitral Valve There is severe mitral annular calcification. There is moderate to severe mitral valve thickening. No significant mitral valve stenosis. There is moderate to severe mitral regurgitation. Tricuspid Valve The tricuspid valve is not well visualized, but is grossly normal. There is mild tricuspid regurgitat ion. Aortic Valve Severe valvular aortic stenosis. Moderate to severe aortic regurgitation. Pulmonic Valve The pulmonic valve is not well seen, but is grossly normal. There is no pulmonic valvular stenosis. Great Vessels The aortic root is normal size. Pericardium/Pleura There is no pericardial effusion. There is a pleural effusion present. Interpretation Summary There is moderate global hypokinesis of the left ventricle. Septal motion is consistent with conduction abnormality. Left ventricular systolic function is moderate to severely reduced. Ejection Fraction = 40%. The left atrium is borderline dilated. There is severe mitral annular calcification. There is moderate to severe mitral valve thickening. There is moderate to severe mitral regurgitation. Severe valvular aortic stenosis. Moderate to severe aortic regurgitation. There is a pleural effusion present. MD Luis Carlos Fletcher 02/08/2018 10:20 AM
[2018-02-08] MEDS: PIPERACILLIN/TAZOB 3.375 GM 3.375 GM/50 ML BAG IVPB SCH ×2 (10:24→17:36)
[2018-02-08] MEDS ORDERED: FUROSEMIDE 40 MG/4 ML INJECTABLE VIAL IVPUSH ONE (10:30)
[2018-02-08] MEDS ORDERED: POTASSIUM CHLORIDE ORAL LIQUID 20 MEQ/15 ML PO ONE (10:30)
--- NOTE | 2018-02-08 16:24 | PN ---
Progress Note, Physician Chief Complaint: loose stools,poor appetite, weak, dyspneic with ambulation, lower extremities cramps after administrartion of 80 mg of Lasix iv History of Present Illness: 87 yo female admitted with right parahilar pneumonia and CHF, also having h/o CLL in remission. She was started on Zithromax IV and Zosyn. Her sputum is better and of clear color, but the dyspnea is persisting . The patient received LAsix 40 mg iv last night and 8o mg iv this morning. Her dyspnea seems to be unchanged, and the edema of the lower extremities is persisting. She had 3 loose BM, of normal color, with no mucosities or foul odor. - Current Medication List Current Medications: Active Medications Albuterol/Ipratropium (Duoneb -) 1 amp NEB Q4H PRN PRN Reason: SHORTNESS OF BREATH Albuterol/Ipratropium (Duoneb -) 1 amp NEB RTID [facility] Last Admin: 02/08/18 14:07 Dose: 1 amp Enoxaparin Sodium (Lovenox -) 30 mg SQ DAILY [facility] Azithromycin (Zithromax 500mg Ivpb (Pre-Docked)) 500 mg in 250 mls @ 250 mls/ hr IVPB DAILY [facility] Last Admin: 02/08/18 10:14 Dose: 250 mls/hr Piperacillin Sod/Tazobactam Sod (Zosyn 3.375gm Ivpb (Pre-Docked)) 3.375 gm in 50 mls @ 100 mls/hr IVPB Q8H-IV [facility]; Protocol Last Admin: 02/08/18 10:24 Dose: Not Given Lactobacillus Acidophilus (Bacid -) 1 tab PO BID [facility] Last Admin: 02/08/18 10:14 Dose: 1 tab Levothyroxine Sodium (Synthroid -) 25 mcg PO DAILY@0700 [facility] Last Admin: 02/08/18 06:37 Dose: 25 mcg - Objective Vital Signs: Vital Signs Temperature 97.6 F 02/08/18 14:00 Pulse Rate 94 H 02/08/18 14:00 Respiratory Rate 18 02/08/18 14:00 Blood Pressure 99/50 L 02/08/18 14:00 O2 Sat by Pulse Oximetry (%) 99 02/08/18 14:00 Constitutional: Yes: No Distress, Anxious Eyes: Yes: Conjunctiva Clear, EOM Intact HENT: Yes: Atraumatic, Normocephalic Neck: Yes: Supple Cardiovascular: Yes: Regular Rate and Rhythm, S1, S2, Other (soft systolic ejectional murmur) Respiratory: Yes: Cough, Rales (at the right mid lung area auscultation), SOB, SOB on Exertion. No: Rhonchi, Wheezes Gastrointestinal: Yes: Normal Bowel Sounds, Soft, Abdomen, Obese. No: Hepatomegaly, Melena, Splenomegaly Extremities: Yes: Other (cramps) Edema: Yes Edema: LLE: 2+, RLE: 2+ Peripheral Pulses WNL: Yes Neurological: Yes: Alert, Oriented, Weakness Psychiatric: Yes: Alert, Oriented Labs: CBC, BMP 02/08/18 07:35 02/08/18 07:35 - ....Imaging Cat Scan: Other (bilateral hilar lymphadenopathy, new compared to CT scan of 2014, bilateral pleural effusion,) Other: Other (echo: EF 40%, severe Aortic stenosis, moderate Aortic stenosis, LV hypokinesis) Problem List - Problems (1) Right middle lobe pneumonia Assessment/Plan: Zithromax and Zosyn iv add Bacid to prevent c diff sputum cultures negative at 24 hours Gram stain, and AFB Duo NEb as needed Code(s): J18.1 - LOBAR PNEUMONIA, UNSPECIFIED ORGANISM (2) CLL (chronic lymphocytic leukemia) Assessment/Plan: consult Hemonc appreciated WBC improving add lovenox 30 mg sub cut daily for DVT prophylaxis Code(s): C91.10 - CHRONIC LYMPHOCYTIC LEUK OF B-CELL TYPE NOT ACHIEVE REMIS (3) Aortic stenosis Assessment/Plan: severe according to the ECHO LAsix in total 120 mg in given during the past 12 hours, moderate improvement in dyspnea monitor renal function Code(s): I35.0 - NONRHEUMATIC AORTIC (VALVE) STENOSIS Qualifiers: Cardiac valve disease etiology: nonrheumatic Qualified Code(s): I35.0 - Nonrheumatic aortic (valve) stenosis (4) CHF (congestive heart failure) Assessment/Plan: [place] [address] monitor BUN/creat , K and Magnesium post diuresis Code(s): I50.9 - HEART FAILURE, UNSPECIFIED Qualifiers: Heart failure type: combined systolic and diastolic (5) Hypothyroidism Assessment/Plan: continue Synthroid daily Code(s): E03.9 - HYPOTHYROIDISM, UNSPECIFIED (6) Edema Assessment/Plan: venous doppler to R/o DVT pending Code(s): R60.9 - EDEMA, UNSPECIFIED
[2018-02-08] MEDS: ENOXAPARIN NA (PORCINE) 30 MG/0.3 ML DISP.SYRIN SQ SCH (17:34)
[2018-02-09] MEDS: PIPERACILLIN/TAZOB 3.375 GM 3.375 GM/50 ML BAG IVPB SCH ×3 (02:00→17:45)
[2018-02-09] MEDS: LEVOTHYROXINE NA 25 MCG TABLET (FP) PO SCH (06:08)
[2018-02-09] MEDS: ALBUTEROL SO4 2.5/IPRATROPIUM 0.5 INH SOL 3 ML VIAL.NEB. NEB SCH ×3 (08:26→20:24)
[2018-02-09 08:47] LABS: ANION GAP 11 MMOL/L (8-16); BLOOD UREA NITROGEN 40 mg/dl (7-18); CALCIUM 8.4 mg/dl (8.4-10.2); CHLORIDE 103 mmol/L (98-107); CO2 24 mmol/L (22-28); CREATININE 1.6 mg/dl (0.6-1.3); GLUCOSE,RANDOM 101 mg/dl (74-106); POTASSIUM 3.9 mmol/L (3.5-5.1); SODIUM 138 mmol/L (136-145)
[2018-02-09] MEDS: AZITHROMYCIN IVPB 500 MG/250 ML BAG IVPB SCH (09:26)
[2018-02-09] MEDS: LACTOBACILLUS ACIDOPHILUS 1 TABLET PO SCH ×2 (09:27→21:34)
[2018-02-09] MEDS: ENOXAPARIN NA (PORCINE) 30 MG/0.3 ML DISP.SYRIN SQ SCH (09:27)
[2018-02-09] MEDS ORDERED: POTASSIUM CHLORIDE TABS 20 MEQ TABLET.ER (FP) PO ONE (10:46)
[2018-02-09] MEDS ORDERED: FUROSEMIDE 20 MG TABLET (FP) PO ONE (10:50)
[2018-02-09] MEDS ORDERED: LOPERAMIDE HCL 2 MG CAPSULE PO PRN ×2 (11:02→11:13)
[2018-02-09] MEDS ORDERED: ACETAMINOPHEN 500 MG TABLET (FP) PO PRN (11:12)
[2018-02-09] MEDS: MAGNESIUM OXIDE 400 MG TABLET (FP) PO SCH ×2 (11:24→21:30)
--- NOTE | 2018-02-09 12:51 | PN ---
Progress Note (short form) - Note Progress Note: Chief Complaint: sob History of Present Illness: feeling better, less sob, cough no cp, palpitations, syncope no cigs - Current Medication List Current Medications Generic Name Dose Route Start Last Admin Trade Name Freq PRN Reason Stop Dose Admin Acetaminophen 500 mg 02/09/18 11:12 02/09/18 11:26 Tylenol - PO 500 mg Q6H PRN Administration PAIN Albuterol/Ipratropium 1 amp 02/07/18 14:37 Duoneb - NEB Q4H PRN SHORTNESS OF BREATH Albuterol/Ipratropium 1 amp 02/07/18 20:00 02/09/18 08:26 Duoneb - NEB 1 amp RTID [facility] Administration Enoxaparin Sodium 30 mg 02/08/18 16:30 02/09/18 09:27 Lovenox - SQ 30 mg DAILY [facility] Administration Azithromycin 500 mg in 250 mls @ 250 mls/hr 02/07/18 18:15 02/09/18 09:26 Zithromax 500mg Ivpb (Pre-Docked) IVPB 250 mls/hr DAILY [facility] Administration Piperacillin Sod/Tazobactam Sod 3.375 gm in 50 mls @ 100 mls/hr 02/08/18 10: 00 02/09/18 09:28 Zosyn 3.375gm Ivpb (Pre-Docked) IVPB 100 mls/hr Q8H-IV [facility] Administration Protocol Lactobacillus Acidophilus 1 tab 02/07/18 22:00 02/09/18 09:27 Bacid - PO 1 tab BID [facility] Administration Levothyroxine Sodium 25 mcg 02/08/18 07:00 02/09/18 06:08 Synthroid - PO 25 mcg DAILY@0700 [facility] Administration Loperamide HCl 2 mg 02/09/18 11:13 02/09/18 11:27 Imodium - PO 2 mg Q8H PRN Administration DIARRHEA Magnesium Oxide 400 mg 02/09/18 11:00 02/09/18 11:24 Mag-Ox - PO 400 mg BID [facility] Administration - Objective Vital Signs: Vital Signs Period Temp Pulse Resp BP Sys/Jones Pulse Ox Last 24 Hr 97.6 F-97.8 F 89-94 18-19 99-99/45-50 97-99 Constitutional: Yes: No Distress, Calm Eyes: No: Sclera Icterus HENT: No: Nasal Congestion Cardiovascular: Yes: Regular Rate and Rhythm, JVD (possible), Murmur (soft sounds, soft syst murmur), S1, S2, Other (PMI non diplaced). No: Gallop Respiratory: Yes: CTA Bilaterally. No: Accessory Muscle Use, Rales, Wheezes Gastrointestinal: Yes: Normal Bowel Sounds, Soft. No: Tenderness Musculoskeletal: Yes: Other (No kyphosis) Extremities: No: Cold Edema: Yes (mild nonpitting ankles) Integumentary: No: Jaundice Neurological: Yes: Alert, Oriented (x3) Psychiatric: No: Agitated Assessment/Plan echo 01/2018: lvef 40, global hk, mod-sev mr, sev as, mod-sev ar CXR: bilat effusions. incr'd interstitial markings. no vascular redistribution. no genoveva B lines--similar to 02/01 CT chest, not yet read--images reviewed: bilateral moderate effusions, + fluid in fissures. hazy opacities ? pulm edema. pleural effusions, acute valvular HFpEF, ? PNA -known critical since 2016. -pt appears to be in acute CHF, triggered by recent diet sodium load, +/- contribution from recent URI tipping her over. new leg swelling and MUKHERJEE tracks with timing of oral sodium loads in diet, and had partial response to po lasix as outpt, then sx's worsened (? b/c lasix dose was decreased--pt uncertain on this point). -suspect mild JVD on exam and + hepatojugular reflux c/w high right-sided pressures. -received lasix 20 po x 1 here, only minimal UOP since. will give trial dose lasix 40 iv x 1 tonight--suspect she will diurese significantly to this (lasix naive). will monitor weight trend from today to tomorrow and subjective UOP response. -trend daily bun/creat while diuresing. -BNP 25K (baseline 10K) -02/08: wt down 1 lb. no hypotension. moderate diuretic response to lasix 40 iv x 1 last night. sob unchanged. renal fxn stable today. will give lasix 80 iv x 1 today to observe response. reassess in am, will likely need standing 80 iv qd to bid. -02/09: bun/cr rising. hold iv lasix today. ?pna contributing to sxs as well, cont abx per pmd/ID. reassess need for iv lasix tomorrow. Ao stenosis: -pt diagnosed with critical approx 2 yrs ago (est CRISTINO 0.4 cm2). -was asymptomatic with reasonable functional capacity at that time, and since ( per dtr). 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 CKD: -baseline creat ranges 1.1-1.4 -elevated with diuresis, monitor for now off lasix CLL: -WBC here above prior baseline -per dr giraldo, dr marx (heme) chronic pulm MAC: -per ID
--- NOTE | 2018-02-09 22:34 | PN ---
Progress Note, Physician Chief Complaint: Patient having loose stools, poor appetite. She is complaining of weakness, and is dyspneic with ambulation. There are persisting lower extremities cramps. There is no cough. amy edema of the lower extremities have decreased. History of Present Illness: 87 yo female admitted with right parahilar pneumonia and CHF, also having h/o CLL in remission. She is receiving Zithromax and Zosyn iv, and was diuresed yesterday with Lasix 80 mg iv. Her cough as well as dyspnea improved significantly. The patient is using diapers and it is difficult to measure the urine output and response to diuresis. The edema of the lower extremities improved. Diarrhea is persisting. - Current Medication List Current Medications: Active Medications Acetaminophen (Tylenol -) 500 mg PO Q6H PRN PRN Reason: PAIN Last Admin: 02/09/18 11:26 Dose: 500 mg Albuterol/Ipratropium (Duoneb -) 1 amp NEB Q4H PRN PRN Reason: SHORTNESS OF BREATH Albuterol/Ipratropium (Duoneb -) 1 amp NEB RTID [facility] Last Admin: 02/09/18 20:24 Dose: 1 amp Enoxaparin Sodium (Lovenox -) 30 mg SQ DAILY [facility] Last Admin: 02/09/18 09:27 Dose: 30 mg Azithromycin (Zithromax 500mg Ivpb (Pre-Docked)) 500 mg in 250 mls @ 250 mls/ hr IVPB DAILY [facility] Last Admin: 02/09/18 09:26 Dose: 250 mls/hr Piperacillin Sod/Tazobactam Sod (Zosyn 3.375gm Ivpb (Pre-Docked)) 3.375 gm in 50 mls @ 100 mls/hr IVPB Q8H-IV [facility]; Protocol Last Admin: 02/09/18 17:45 Dose: 100 mls/hr Lactobacillus Acidophilus (Bacid -) 1 tab PO BID [facility] Last Admin: 02/09/18 21:34 Dose: 1 tab Levothyroxine Sodium (Synthroid -) 25 mcg PO DAILY@0700 [facility] Last Admin: 02/09/18 06:08 Dose: 25 mcg Loperamide HCl (Imodium -) 2 mg PO Q8H PRN PRN Reason: DIARRHEA Last Admin: 10/20/18 11:27 Dose: 2 mg Magnesium Oxide (Mag-Ox -) 400 mg PO BID [facility] Last Admin: 02/09/18 21:30 Dose: 400 mg - Objective Vital Signs: Vital Signs Temperature 97.7 F 02/09/18 18:25 Pulse Rate 98 H 02/09/18 18:25 Respiratory Rate 16 02/09/18 21:00 Blood Pressure 105/48 L 02/09/18 18:25 O2 Sat by Pulse Oximetry (%) 98 02/09/18 21:00 Constitutional: Yes: Anxious Eyes: Yes: Conjunctiva Clear HENT: Yes: Atraumatic, Normocephalic Neck: Yes: Supple Cardiovascular: Yes: Regular Rate and Rhythm, S1, S2, Other (edema +1) Respiratory: Yes: Regular, CTA Bilaterally, On Nasal O2 Gastrointestinal: Yes: Normal Bowel Sounds, Soft, Abdomen, Obese, Other ( diarrhea). No: Splenomegaly, Tenderness, Tenderness, Epigastrium, Vomiting Genitourinary: Yes: Other (incontinence) Extremities: Yes: Other (muscle cramps) Edema: LLE: 1+, RLE: 1+ Peripheral Pulses WNL: Yes Integumentary: Yes: WNL Neurological: Yes: Alert, Oriented Psychiatric: Yes: Alert, Oriented Labs: CBC, BMP 02/08/18 07:35 02/09/18 07:25 Problem List - Problems (1) Right middle lobe pneumonia Assessment/Plan: Zithromax and Zosyn iv add Bacid to prevent c diff sputum cultures negative at 24 hours Gram stain, and AFB Duo NEb as needed Code(s): J18.1 - LOBAR PNEUMONIA, UNSPECIFIED ORGANISM (2) CLL (chronic lymphocytic leukemia) Assessment/Plan: consult Hemonc appreciated WBC improving add lovenox 30 mg sub cut daily for DVT prophylaxis Code(s): C91.10 - CHRONIC LYMPHOCYTIC LEUK OF B-CELL TYPE NOT ACHIEVE REMIS (3) Aortic stenosis Assessment/Plan: severe according to the ECHO s/p LAsix with moderate improvement in dyspnea monitor renal function Code(s): I35.0 - NONRHEUMATIC AORTIC (VALVE) STENOSIS Qualifiers: Cardiac valve disease etiology: nonrheumatic Qualified Code(s): I35.0 - Nonrheumatic aortic (valve) stenosis (4) CHF (congestive heart failure) Assessment/Plan: lasix as needed, received 20 mg po today Code(s): I50.9 - HEART FAILURE, UNSPECIFIED Qualifiers: Heart failure type: combined systolic and diastolic (5) Hypothyroidism Assessment/Plan: continue Synthroid daily Code(s): E03.9 - HYPOTHYROIDISM, UNSPECIFIED (6) Edema Assessment/Plan: venous doppler to R/o DVT pending Code(s): R60.9 - EDEMA, UNSPECIFIED (7) Diarrhea Assessment/Plan: C diff toxin and antigen pending Bacid bid monitor K, BUN and Creatinine loperamide prn Diurese carefully Code(s): R19.7 - DIARRHEA, UNSPECIFIED
[2018-02-10] MEDS: PIPERACILLIN/TAZOB 3.375 GM 3.375 GM/50 ML BAG IVPB SCH ×3 (02:00→18:25)
[2018-02-10] MEDS: LEVOTHYROXINE NA 25 MCG TABLET (FP) PO SCH (06:11)
[2018-02-10 09:25] LABS: ANION GAP 11 MMOL/L (8-16); BLOOD UREA NITROGEN 31 mg/dl (7-18); CALCIUM 8.5 mg/dl (8.4-10.2); CHLORIDE 104 mmol/L (98-107); CO2 23 mmol/L (22-28); CREATININE 1.6 mg/dl (0.6-1.3); GLUCOSE,RANDOM 97 mg/dl (74-106); POTASSIUM 3.8 mmol/L (3.5-5.1); SODIUM 138 mmol/L (136-145)
[2018-02-10] MEDS: ENOXAPARIN NA (PORCINE) 30 MG/0.3 ML DISP.SYRIN SQ SCH (09:59)
[2018-02-10] MEDS: MAGNESIUM OXIDE 400 MG TABLET (FP) PO SCH ×2 (09:59→21:27)
[2018-02-10] MEDS: AZITHROMYCIN IVPB 500 MG/250 ML BAG IVPB SCH (09:59)
[2018-02-10] MEDS: ALBUTEROL SO4 2.5/IPRATROPIUM 0.5 INH SOL 3 ML VIAL.NEB. NEB SCH ×3 (09:59→21:26)
[2018-02-10] MEDS: LACTOBACILLUS ACIDOPHILUS 1 TABLET PO SCH ×2 (09:59→21:27)
--- NOTE | 2018-02-10 12:33 | PN ---
Progress Note, Physician Chief Complaint: Patient found in the chair, dyspneic while talking, with very sporadic cough productive of whitish sputum; her diarrhea is persisting but the stool are less numerous History of Present Illness: 87 yo female was admitted for right parahilar pneumonia and new onset CHF. 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 The patient was started on Zithromax on 01/29/18 and Augmentin was added on 04/09. The treatment was switched to iv Zithromax and Zosyn when the patient was admitted to the hospital, on 02/07/2018. She received Lasix iV during her hospital admission which improved the lower extremity edema and dyspnea. There is diarrhea since 01/31/18 with loose watery stools. A stool C/s and the titers for C. Diff were sent out. The results are pending. - Current Medication List Current Medications: Active Medications Acetaminophen (Tylenol -) 500 mg PO Q6H PRN PRN Reason: PAIN Last Admin: 02/09/18 11:26 Dose: 500 mg Albuterol/Ipratropium (Duoneb -) 1 amp NEB Q4H PRN PRN Reason: SHORTNESS OF BREATH Albuterol/Ipratropium (Duoneb -) 1 amp NEB RTID [facility] Last Admin: 02/10/18 09:59 Dose: 1 amp Enoxaparin Sodium (Lovenox -) 30 mg SQ DAILY [facility] Last Admin: 02/10/18 09:59 Dose: 30 mg Azithromycin (Zithromax 500mg Ivpb (Pre-Docked)) 500 mg in 250 mls @ 250 mls/ hr IVPB DAILY [facility] Last Admin: 02/10/18 09:59 Dose: 250 mls/hr Piperacillin Sod/Tazobactam Sod (Zosyn 3.375gm Ivpb (Pre-Docked)) 3.375 gm in 50 mls @ 100 mls/hr IVPB Q8H-IV [facility]; Protocol Last Admin: 02/10/18 09:59 Dose: 100 mls/hr Lactobacillus Acidophilus (Bacid -) 1 tab PO BID [facility] Last Admin: 02/10/18 09:59 Dose: 1 tab Levothyroxine Sodium (Synthroid -) 25 mcg PO DAILY@0700 [facility] Last Admin: 02/10/18 06:11 Dose: 25 mcg Loperamide HCl (Imodium -) 2 mg PO Q8H PRN PRN Reason: DIARRHEA Last Admin: 02/09/18 11:27 Dose: 2 mg Magnesium Oxide (Mag-Ox -) 400 mg PO BID [facility] Last Admin: 02/10/18 09:59 Dose: 400 mg - Objective Vital Signs: Vital Signs Temperature 97.6 F 02/10/18 07:00 Pulse Rate 85 02/10/18 07:00 Respiratory Rate 18 02/10/18 07:00 Blood Pressure 103/55 L 02/10/18 07:00 O2 Sat by Pulse Oximetry (%) 97 02/10/18 08:48 Constitutional: Yes: No Distress, Calm Eyes: Yes: Conjunctiva Clear, EOM Intact HENT: Yes: Atraumatic, Normocephalic Gastrointestinal: Yes: Soft, Abdomen, Obese, Other (diarrhea continuing). No: Tenderness, Epigastrium, Tenderness, Rebound, Vomiting Edema: LLE: 1+, RLE: 1+ Peripheral Pulses WNL: Yes Neurological: Yes: Alert, Oriented Psychiatric: Yes: Alert, Oriented Labs: CBC, BMP 02/10/18 06:45 Problem List - Problems (1) Right middle lobe pneumonia Assessment/Plan: Zithromax and Zosyn iv Bacid to prevent c diff infection sputum cultures not sent out yet Duo NEb as needed repeat CXR showing persisting right parahilar infiltrate unchanged compared to the CXR of 02/01/18 Code(s): J18.1 - LOBAR PNEUMONIA, UNSPECIFIED ORGANISM (2) CLL (chronic lymphocytic leukemia) Assessment/Plan: consult Hemonc appreciated WBC improving add lovenox 30 mg sub cut daily for DVT prophylaxis CBC this am pending Code(s): C91.10 - CHRONIC LYMPHOCYTIC LEUK OF B-CELL TYPE NOT ACHIEVE REMIS (3) Aortic stenosis Assessment/Plan: severe according to the ECHO s/p LAsix with moderate improvement in dyspnea creatinine 1.6, unchanged since yesterday repeat CXR pending Code(s): I35.0 - NONRHEUMATIC AORTIC (VALVE) STENOSIS Qualifiers: Cardiac valve disease etiology: nonrheumatic Qualified Code(s): I35.0 - Nonrheumatic aortic (valve) stenosis (4) CHF (congestive heart failure) Assessment/Plan: Pleural effusions persisting by CXR today administer LAsix 40 mg iv one dose Code(s): I50.9 - HEART FAILURE, UNSPECIFIED Qualifiers: Heart failure type: combined systolic and diastolic (5) Hypothyroidism Assessment/Plan: continue Synthroid daily Code(s): E03.9 - HYPOTHYROIDISM, UNSPECIFIED (6) Edema Assessment/Plan: improved and at baseline Code(s): R60.9 - EDEMA, UNSPECIFIED (7) Diarrhea Assessment/Plan: BAcid C diff toxin and antibody pending Code(s): R19.7 - DIARRHEA, UNSPECIFIED
[2018-02-10 12:47] LABS: BASO % 1.9 % (0-2.0); EOS % 0.8 % (0-4.5); HEMOGLOBIN 10.4 GM/dl (10.7-15.3); LYMPH % 81.4 % (8-40); MCH 26.3 pg (25.7-33.7); MCHC 32.6 g/dl (32.0-36.0); MEAN CELL VOLUME 80.7 fl (80-96); MEAN PLT VOLUME 8.5 fl (7.5-11.1); MONO % 5.3 % (3.8-10.2); NEUT % 10.6 % (42.8-82.8); PLATELET COUNT 162 K/MM3 (134-434); RBC 3.97 M/mm3 (3.60-5.2); WHITE BLOOD COUNT 22.1 K/mm3 (4.0-10.8)
--- NOTE | 2018-02-10 12:57 | PN ---
Progress Note (short form) - Note Progress Note: Chief Complaint: sob History of Present Illness: feeling better, less sob, cough no cp, palpitations, syncope still with diarrhea but less no cigs - Current Medication List Current Medications Generic Name Dose Route Start Last Admin Trade Name Freq PRN Reason Stop Dose Admin Acetaminophen 500 mg 02/09/18 11:12 02/09/18 11:26 Tylenol - PO 500 mg Q6H PRN Administration PAIN Albuterol/Ipratropium 1 amp 02/07/18 14:37 Duoneb - NEB Q4H PRN SHORTNESS OF BREATH Albuterol/Ipratropium 1 amp 02/07/18 20:00 02/10/18 09:59 Duoneb - NEB 1 amp RTID [facility] Administration Enoxaparin Sodium 30 mg 02/08/18 16:30 02/10/18 09:59 Lovenox - SQ 30 mg DAILY [facility] Administration Azithromycin 500 mg in 250 mls @ 250 mls/hr 02/07/18 18:15 02/10/18 09:59 Zithromax 500mg Ivpb (Pre-Docked) IVPB 250 mls/hr DAILY [facility] Administration Piperacillin Sod/Tazobactam Sod 3.375 gm in 50 mls @ 100 mls/hr 02/08/18 10: 00 02/10/18 09:59 Zosyn 3.375gm Ivpb (Pre-Docked) IVPB 100 mls/hr Q8H-IV [facility] Administration Protocol Lactobacillus Acidophilus 1 tab 02/07/18 22:00 02/10/18 09:59 Bacid - PO 1 tab BID [facility] Administration Levothyroxine Sodium 25 mcg 02/08/18 07:00 02/10/18 06:11 Synthroid - PO 25 mcg DAILY@0700 [facility] Administration Loperamide HCl 2 mg 02/09/18 11:13 02/09/18 11:27 Imodium - PO 2 mg Q8H PRN Administration DIARRHEA Magnesium Oxide 400 mg 02/09/18 11:00 02/10/18 09:59 Mag-Ox - PO 400 mg BID [facility] Administration - Objective Vital Signs: Vital Signs Period Temp Pulse Resp BP Sys/Jones Pulse Ox Last 24 Hr 97.4 F-98.7 F 45-98 16-20 97-116/48-57 97-99 Constitutional: Yes: No Distress, Calm Eyes: No: Sclera Icterus HENT: No: Nasal Congestion Cardiovascular: Yes: Regular Rate and Rhythm, JVD (possible), Murmur (soft sounds, soft syst murmur), S1, S2, Other (PMI non diplaced). No: Gallop Respiratory: Yes: CTA Bilaterally. No: Accessory Muscle Use, Rales, Wheezes Gastrointestinal: Yes: Normal Bowel Sounds, Soft. No: Tenderness Musculoskeletal: Yes: Other (No kyphosis) Extremities: No: Cold Edema: Yes (mild nonpitting ankles) Integumentary: No: Jaundice Neurological: Yes: Alert, Oriented (x3) Psychiatric: No: Agitated Assessment/Plan echo 01/2018: lvef 40, global hk, mod-sev mr, sev as, mod-sev ar CXR: bilat effusions. incr'd interstitial markings. no vascular redistribution. no genoveva B lines--similar to 02/01 pleural effusions, acute valvular HFpEF, ? PNA -known critical since 2016. -pt appears to be in acute CHF, triggered by recent diet sodium load, +/- contribution from recent URI tipping her over. new leg swelling and MUKHERJEE tracks with timing of oral sodium loads in diet, and had partial response to po lasix as outpt, then sx's worsened (? b/c lasix dose was decreased--pt uncertain on this point). -suspect mild JVD on exam and + hepatojugular reflux c/w high right-sided pressures. -received lasix 20 po x 1 here, only minimal UOP since. will give trial dose lasix 40 iv x 1 tonight--suspect she will diurese significantly to this (lasix naive). will monitor weight trend from today to tomorrow and subjective UOP response. -trend daily bun/creat while diuresing. -BNP 25K (baseline 10K) -02/08: wt down 1 lb. no hypotension. moderate diuretic response to lasix 40 iv x 1 last night. sob unchanged. renal fxn stable today. will give lasix 80 iv x 1 today to observe response. reassess in am, will likely need standing 80 iv qd to bid. -02/09: bun/cr rising. hold iv lasix today. ?pna contributing to sxs as well, cont abx per pmd/ID. reassess need for iv lasix tomorrow. -02/10: bun/cr stable off iv lasix. pt feeling better, less sob. Cont with abx for pna and holding lasix for now. repeat CXR pending. Ao stenosis: -pt diagnosed with critical approx 2 yrs ago (est CRISTINO 0.4 cm2). -was asymptomatic with reasonable functional capacity at that time, and since ( per dtr). 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 Will need to d/w pt whether she wishes to now accept risks of TAVR given her prognosis is significantly impacted ( yearly risk of cardiac approx 25%, potential for recurrent HF admits increased) -echo now with reduced lvef as well. -will need f/u outpt echo and discussion about TAVR CKD: -baseline creat ranges 1.1-1.4 -elevated with diuresis, monitor for now off lasix CLL: -WBC here above prior baseline -per dr giraldo, dr marx (heme) chronic pulm MAC: -per ID
[2018-02-10] MEDS ORDERED: FUROSEMIDE 40 MG/4 ML INJECTABLE VIAL IVPUSH ONE (17:00)
[2018-02-10] MEDS ORDERED: POTASSIUM CHLORIDE TABS 20 MEQ TABLET.ER (FP) PO ONE (17:01)
[2018-02-11] MEDS: PIPERACILLIN/TAZOB 3.375 GM 3.375 GM/50 ML BAG IVPB SCH ×3 (01:29→17:49)
[2018-02-11] MEDS: LEVOTHYROXINE NA 25 MCG TABLET (FP) PO SCH (06:27)
[2018-02-11] MEDS: ALBUTEROL SO4 2.5/IPRATROPIUM 0.5 INH SOL 3 ML VIAL.NEB. NEB SCH ×3 (08:27→21:48)
[2018-02-11 08:34] LABS: ALBUMIN 3.3 g/dl (3.5-5.0); ALK PHOS 54 U/L (32-92); ANION GAP 10 MMOL/L (8-16); BILIRUBIN,TOTAL 0.6 mg/dl (0.2-1.0); BLOOD UREA NITROGEN 27 mg/dl (7-18); CALCIUM 8.7 mg/dl (8.4-10.2); CHLORIDE 102 mmol/L (98-107); CO2 26 mmol/L (22-28); CREATININE 1.6 mg/dl (0.6-1.3); GLUCOSE,RANDOM 116 mg/dl (74-106); POTASSIUM 4.3 mmol/L (3.5-5.1); SGOT/AST 18 U/L (10-42); SGPT/ALT 13 U/L (10-40); SODIUM 138 mmol/L (136-145); TOT PROT 5.5 g/dl (6.4-8.3)
--- NOTE | 2018-02-11 08:46 | PN ---
Progress Note, Physician Chief Complaint: sob History of Present Illness: initially says sob is "better." readily admits that she gets sob getting oob to bathroom in her room. feels exhausted like when had the flu. sore throat--dx'd with thrush. diarrhea no cp, palpit no cigs - Current Medication List Current Medications: Active Medications Acetaminophen (Tylenol -) 500 mg PO Q6H PRN PRN Reason: PAIN Last Admin: 02/09/18 11:26 Dose: 500 mg Albuterol/Ipratropium (Duoneb -) 1 amp NEB Q4H PRN PRN Reason: SHORTNESS OF BREATH Albuterol/Ipratropium (Duoneb -) 1 amp NEB RTID [facility] Last Admin: 02/11/18 08:27 Dose: 1 amp Enoxaparin Sodium (Lovenox -) 30 mg SQ DAILY [facility] Last Admin: 02/10/18 09:59 Dose: 30 mg Azithromycin (Zithromax 500mg Ivpb (Pre-Docked)) 500 mg in 250 mls @ 250 mls/ hr IVPB DAILY [facility] Last Admin: 02/10/18 09:59 Dose: 250 mls/hr Piperacillin Sod/Tazobactam Sod (Zosyn 3.375gm Ivpb (Pre-Docked)) 3.375 gm in 50 mls @ 100 mls/hr IVPB Q8H-IV [facility]; Protocol Last Admin: 02/11/18 01:29 Dose: 100 mls/hr Lactobacillus Acidophilus (Bacid -) 1 tab PO BID [facility] Last Admin: 02/10/18 21:27 Dose: 1 tab Levothyroxine Sodium (Synthroid -) 25 mcg PO DAILY@0700 [facility] Last Admin: 02/11/18 06:27 Dose: 25 mcg Loperamide HCl (Imodium -) 2 mg PO Q8H PRN PRN Reason: DIARRHEA Last Admin: 02/09/18 11:27 Dose: 2 mg Magnesium Oxide (Mag-Ox -) 400 mg PO BID [facility] Last Admin: 02/10/18 21:27 Dose: 400 mg - Objective Vital Signs: Vital Signs Temperature 97.7 F 02/11/18 06:00 Pulse Rate 101 H 02/11/18 06:00 Respiratory Rate 19 02/11/18 06:00 Blood Pressure 110/76 02/11/18 06:00 O2 Sat by Pulse Oximetry (%) 97 02/11/18 08:28 Constitutional: Yes: No Distress, Calm Eyes: No: Sclera Icterus HENT: No: Nasal Congestion Cardiovascular: Yes: Regular Rate and Rhythm, S1, S2, Other (PMI non diplaced). No: JVD (no HJR), Gallop, Murmur Respiratory: Yes: Regular, Diminished (bases), Wheezes. No: Accessory Muscle Use, Rales Gastrointestinal: Yes: Normal Bowel Sounds, Soft. No: Tenderness Musculoskeletal: Yes: Other (No kyphosis) Extremities: No: Cold Edema: No (stockings) Integumentary: No: Jaundice Neurological: Yes: Alert, Oriented (x3) Psychiatric: No: Agitated Assessment/Plan CXR: bilat effusions. incr'd interstitial markings. no vascular redistribution. no genoveva B lines--similar to 02/01 CT chest: bilat effusions, ATX, no infiltrates, mild mediast adenopathy Echo 01/2018: lvef 40, global hk, mod-sev mr, sev as, mod-sev ar. IMAGES REVIEWED: EF 40 vs 40-45% range. suspect AI is mild-moderate (PHT likely short due to non-compliant LV). suspect MR likely is moderate range visually. severe posterior MAC, thickened leaflets with visually restricted motion--likely mild- moderate mitral stenosis (mean gradient approx 3-4 mmHg at 79 bpm). mean AV gradient approx 80, peak mi 5.3. pleural effusions, acute valvular HFpEF, ? PNA -known critical since 2016. -pt appears to be in acute CHF, triggered by recent diet sodium load, +/- contribution from recent URI tipping her over. new leg swelling and MUKHERJEE tracks with timing of oral sodium loads in diet, and had partial response to po lasix as outpt, then sx's worsened (? b/c lasix dose was decreased--pt uncertain on this point). -suspect mild JVD on exam and + hepatojugular reflux c/w high right-sided pressures. -received lasix 20 po x 1 here, only minimal UOP since. will give trial dose lasix 40 iv x 1 tonight--suspect she will diurese significantly to this (lasix naive). will monitor weight trend from today to tomorrow and subjective UOP response. -trend daily bun/creat while diuresing. -BNP 25K (baseline 10K) -no consistent downward wt trend with lasix 80 iv--pt reported sob improved. lasix held on 02/09 for bun/creat bump (1.6) -02/11: cxr yesterday unchanged, i.e. peristent effusions and vasc engorgement. remains sob with little activity. no JVD/neg HJR but she must still be volume overloaded given the sizable effusions that persist (albumin is preserved). she is not diuresing very much with lasix 40 iv (urinated 3x), wt unchanged. -suspect she has fixed, low cardiac output from critical with reduced LVEF and hence cannot perfuse kidneys adequately to diurese. doubt milrinone will have major effect here given fixed LV obstruction. -will give lasix 80 IVP x 1 now--measure UOP. -if cannot diurese her with iv lasix, will need to consider transfer to [facility] [place] for inpt HF optimization, and consideration of BAV as bridge to TAVR if pt willing. began the discussion of this possibility with pt and dtr today, she is reluctant but will consider it further. -despite lasix held, pt's sx's have improved -IV abx coverage per ID -no IV fluids Ao stenosis: -pt diagnosed with critical approx 2 yrs ago (est CRISTINO 0.4 cm2). -was asymptomatic with reasonable functional capacity at that time, and since ( per dtr). 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
[2018-02-11 09:15] LABS: BASO % 0.2 % (0-2.0); EOS % 0.8 % (0-4.5); HEMATOCRIT 32.4 % (32.4-45.2); HEMOGLOBIN 10.4 GM/dL (10.7-15.3); LYMPH % 82.5 % (8-40); MCH 25.1 pg (25.7-33.7); MEAN CELL VOLUME 78.3 fl (80-96); MEAN PLT VOLUME 7.7 fl (7.5-11.1); MONO % 3.7 % (3.8-10.2); NEUT % 12.8 % (42.8-82.8); PLATELET COUNT 150 K/MM3 (134-434); RBC 4.14 M/mm3 (3.60-5.2); RDW 18.1 % (11.6-15.6); WHITE BLOOD COUNT 21.4 K/mm3 (4.0-10.0)
[2018-02-11] MEDS: LACTOBACILLUS ACIDOPHILUS 1 TABLET PO SCH ×2 (09:46→21:46)
[2018-02-11] MEDS: ENOXAPARIN NA (PORCINE) 30 MG/0.3 ML DISP.SYRIN SQ SCH (09:46)
[2018-02-11] MEDS: MAGNESIUM OXIDE 400 MG TABLET (FP) PO SCH ×2 (09:47→21:46)
[2018-02-11] MEDS: AZITHROMYCIN IVPB 500 MG/250 ML BAG IVPB SCH (09:49)
[2018-02-11] MEDS ORDERED: REFRIGERATED ANITBIOTICS ONE ×5 (10:04→21:42)
--- NOTE | 2018-02-11 10:26 | PN ---
Progress Note, Physician History of Present Illness: Awake, alert OOB in chair No c/o chest pain / dyspnea Occasional cough - white sputum No c/o fever/ chills + loose BMS Afebrile WBC 21K 12N 82L Flu swab (-), BC (-) Legionella ag(-) - Current Medication List Current Medications: Active Medications Acetaminophen (Tylenol -) 500 mg PO Q6H PRN PRN Reason: PAIN Last Admin: 02/09/18 11:26 Dose: 500 mg Albuterol/Ipratropium (Duoneb -) 1 amp NEB Q4H PRN PRN Reason: SHORTNESS OF BREATH Albuterol/Ipratropium (Duoneb -) 1 amp NEB RTID [facility] Last Admin: 02/11/18 08:27 Dose: 1 amp Diphenhydramine/Nystatin/Lidocaine (Nystatin Mouth Rinse *Df Formula*) 5 ml MM ACHS [facility] Enoxaparin Sodium (Lovenox -) 30 mg SQ DAILY [facility] Last Admin: 02/11/18 09:46 Dose: 30 mg Azithromycin (Zithromax 500mg Ivpb (Pre-Docked)) 500 mg in 250 mls @ 250 mls/ hr IVPB DAILY [facility] Last Admin: 02/11/18 09:49 Dose: 250 mls/hr Piperacillin Sod/Tazobactam Sod (Zosyn 3.375gm Ivpb (Pre-Docked)) 3.375 gm in 50 mls @ 100 mls/hr IVPB Q8H-IV [facility]; Protocol Last Admin: 02/11/18 09:49 Dose: 100 mls/hr Lactobacillus Acidophilus (Bacid -) 1 tab PO BID [facility] Last Admin: 02/11/18 09:46 Dose: 1 tab Levothyroxine Sodium (Synthroid -) 25 mcg PO DAILY@0700 [facility] Last Admin: 02/11/18 06:27 Dose: 25 mcg Loperamide HCl (Imodium -) 2 mg PO Q8H PRN PRN Reason: DIARRHEA Last Admin: 02/09/18 11:27 Dose: 2 mg Magnesium Oxide (Mag-Ox -) 400 mg PO BID [facility] Last Admin: 02/11/18 09:47 Dose: 400 mg - Objective Vital Signs: Vital Signs Temperature 97.7 F 02/11/18 06:00 Pulse Rate 101 H 02/11/18 06:00 Respiratory Rate 19 02/11/18 06:00 Blood Pressure 110/76 02/11/18 06:00 O2 Sat by Pulse Oximetry (%) 97 02/11/18 08:28 Constitutional: Yes: No Distress Eyes: Yes: Conjunctiva Clear Cardiovascular: Yes: Regular Rate and Rhythm, S1, S2 Respiratory: Yes: CTA Bilaterally Gastrointestinal: Yes: Normal Bowel Sounds, Soft. No: Tenderness Edema: Yes Edema: LLE: 2+, RLE: 2+ Labs: CBC, BMP 02/11/18 07:45 02/11/18 07:45 Assessment/Plan CHF ? bibasilar pneumonia Bilateral pleural effusions Leukocytosis- multifactorial ( CLL, infection) Loose BMs Day #5 empiric zosyn Continue antibiotics additional 24-48 Discussed with cardiology
[2018-02-11] MEDS: NYSTATIN/DPHA/LIDO/SUCRAFATE 120 ML MOUTHWASH MM SCH ×3 (11:00→21:47)
[2018-02-11 11:18] LABS: ANISOCYTOSIS 1+; MACROCYTOSIS 0; PLATELET ESTIMATE DECREASED
[2018-02-11] MEDS ORDERED: FUROSEMIDE 40 MG/4 ML INJECTABLE VIAL IVPUSH ONE ×2 (15:09→18:55)
[2018-02-11] MEDS: LYTES/YERBA SANTA 240 ML BOTTLE MM SCH ×2 (17:48→21:47)
[2018-02-11] MEDS ORDERED: PT OWN MED DRAWER 7, Y5N ONE ×2 (18:29→21:42)
[2018-02-11] MEDS ORDERED: FLUCONAZOLE 100 MG TABLET (UD) PO ONE (19:00)
[2018-02-11] MEDS ORDERED: POTASSIUM CHLORIDE TABS 10 MEQ TABLET.ER (FP) PO SCH (19:00)
--- NOTE | 2018-02-11 19:59 | PN ---
Progress Note, Physician Chief Complaint: Patient became more dyspneic in the afternoon today. She is complaining of throat discomfort and pain when swallowing. History of Present Illness: 87 yo female was admitted for right parahilar pneumonia and new onset CHF. 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 The patient receievd IV antibiotics Zithromax and Zosyn, and IV LAsix. Her oral intake is decreased because of dysphagia, and the bowel movements are more formed . There is dyspnea and orthopnea associated with cough. Today the patient received 40 mg iv LAsix at 4 pm, with an output of 250 cc urine. A PureWick catheter was placed for monitoring and anotehr 80 mg of LAsix iv were given. The blood pressure is around 100 mm Hg systolic - Current Medication List Current Medications: Active Medications Acetaminophen (Tylenol -) 500 mg PO Q6H PRN PRN Reason: PAIN Last Admin: 02/09/18 11:26 Dose: 500 mg Albuterol/Ipratropium (Duoneb -) 1 amp NEB Q4H PRN PRN Reason: SHORTNESS OF BREATH Albuterol/Ipratropium (Duoneb -) 1 amp NEB RTID [facility] Last Admin: 02/11/18 14:50 Dose: 1 amp Diphenhydramine/Nystatin/Lidocaine (Nystatin Mouth Rinse *Df Formula*) 5 ml MM ACHS [facility] Last Admin: 02/11/18 17:48 Dose: 5 ml Enoxaparin Sodium (Lovenox -) 30 mg SQ DAILY [facility] Last Admin: 02/11/18 09:46 Dose: 30 mg Piperacillin Sod/Tazobactam Sod (Zosyn 3.375gm Ivpb (Pre-Docked)) 3.375 gm in 50 mls @ 100 mls/hr IVPB Q8H-IV [facility]; Protocol Last Admin: 02/11/18 17:49 Dose: 100 mls/hr Lactobacillus Acidophilus (Bacid -) 1 tab PO BID [facility] Last Admin: 02/11/18 09:46 Dose: 1 tab Levothyroxine Sodium (Synthroid -) 25 mcg PO DAILY@0700 [facility] Last Admin: 02/11/18 06:27 Dose: 25 mcg Loperamide HCl (Imodium -) 2 mg PO Q8H PRN PRN Reason: DIARRHEA Last Admin: 10/20/18 11:27 Dose: 2 mg Lorazepam (Ativan -) 0.5 mg PO HS PRN PRN Reason: ANXIETY Magnesium Oxide (Mag-Ox -) 400 mg PO BID [facility] Last Admin: 02/11/18 09:47 Dose: 400 mg Potassium Chloride (K-Dur -) 20 meq PO DAILY [facility] Last Admin: 02/11/18 19:26 Dose: 20 meq Saliva Substitute (Mouthkote Solution -) 1 applic MM Q4HWA [facility] Last Admin: 02/11/18 17:48 Dose: 1 applic - Objective Vital Signs: Vital Signs Temperature 97.5 F L 02/11/18 14:57 Pulse Rate 98 H 02/11/18 14:57 Respiratory Rate 17 02/11/18 14:57 Blood Pressure 101/50 L 02/11/18 14:57 O2 Sat by Pulse Oximetry (%) 99 02/11/18 14:57 Constitutional: Yes: Anxious, Moderate Distress Eyes: Yes: Conjunctiva Clear, EOM Intact HENT: Yes: Atraumatic, Normocephalic, Other (thrush present in the oral cavity) Neck: Yes: Supple, Trachea Midline Cardiovascular: Yes: Regular Rate and Rhythm, S1, S2 Respiratory: Yes: Regular, CTA Bilaterally, On Nasal O2 Gastrointestinal: Yes: Soft, Abdomen, Obese. No: Distention, Hepatomegaly, Splenomegaly, Tenderness Extremities: No: Calf Tenderness Edema: No Peripheral Pulses WNL: Yes Neurological: Yes: Alert, Oriented, Weakness Psychiatric: Yes: Alert, Oriented, Other (anxious) Labs: CBC, BMP 02/11/18 07:45 02/11/18 07:45 Problem List - Problems (1) Right middle lobe pneumonia Assessment/Plan: Zithromax and Zosyn iv Bacid to prevent c diff infection Code(s): J18.1 - LOBAR PNEUMONIA, UNSPECIFIED ORGANISM (2) CLL (chronic lymphocytic leukemia) Assessment/Plan: consult Hemonc appreciated WBC improving add lovenox 30 mg sub cut daily for DVT prophylaxis Code(s): C91.10 - CHRONIC LYMPHOCYTIC LEUK OF B-CELL TYPE NOT ACHIEVE REMIS (3) Aortic stenosis Assessment/Plan: severe according to the ECHO and with LVEF of 40% creatinine 1.6, unchanged since yesterday a total of 120 mg iv Lasix given today Code(s): I35.0 - NONRHEUMATIC AORTIC (VALVE) STENOSIS Qualifiers: Cardiac valve disease etiology: nonrheumatic Qualified Code(s): I35.0 - Nonrheumatic aortic (valve) stenosis (4) CHF (congestive heart failure) Assessment/Plan: administer LAsix iv as tolerated Code(s): I50.9 - HEART FAILURE, UNSPECIFIED Qualifiers: Heart failure type: combined systolic and diastolic (5) Hypothyroidism Assessment/Plan: continue Synthroid daily Code(s): E03.9 - HYPOTHYROIDISM, UNSPECIFIED (6) Edema Assessment/Plan: improved and at baseline Code(s): R60.9 - EDEMA, UNSPECIFIED (7) Diarrhea Assessment/Plan: on BAcid and better today C diff toxin and antibody pending Code(s): R19.7 - DIARRHEA, UNSPECIFIED (8) Thrush, oral Assessment/Plan: nystatinn mixture topically swish and spit Code(s): B37.0 - CANDIDAL STOMATITIS
[2018-02-11] MEDS: LORazepam 0.5 MG TABLET PO PRN (21:46)
[2018-02-12] MEDS: PIPERACILLIN/TAZOB 3.375 GM 3.375 GM/50 ML BAG IVPB SCH ×2 (02:00→09:33)
[2018-02-12] MEDS: LEVOTHYROXINE NA 25 MCG TABLET (FP) PO SCH (06:52)
[2018-02-12] MEDS: LYTES/YERBA SANTA 240 ML BOTTLE MM SCH ×5 (06:52→21:41)
[2018-02-12] MEDS: NYSTATIN/DPHA/LIDO/SUCRAFATE 120 ML MOUTHWASH MM SCH ×3 (06:53→17:36)
[2018-02-12] MEDS: ALBUTEROL SO4 2.5/IPRATROPIUM 0.5 INH SOL 3 ML VIAL.NEB. NEB SCH ×4 (06:54→21:41)
[2018-02-12] MEDS ORDERED: REFRIGERATED ANITBIOTICS ONE ×4 (07:12→17:18)
[2018-02-12 08:30] LABS: BASO % 1.8 % (0-2.0); EOS % 0.6 % (0-4.5); HEMATOCRIT 32.3 % (32.4-45.2); HEMOGLOBIN 10.8 GM/dl (10.7-15.3); LYMPH % 81.8 % (8-40); MCHC 33.5 g/dl (32.0-36.0); MEAN CELL VOLUME 80.5 fl (80-96); MEAN PLT VOLUME 7.4 fl (7.5-11.1); MONO % 5.1 % (3.8-10.2); NEUT % 10.7 % (42.8-82.8); PLATELET COUNT 174 K/MM3 (134-434); RBC 4.01 M/mm3 (3.60-5.2); RDW 17.4 % (11.6-15.6); WHITE BLOOD COUNT 27.9 K/mm3 (4.0-10.8)
--- NOTE | 2018-02-12 08:31 | PN ---
Progress Note, Physician Chief Complaint: sob History of Present Illness: became sob in afternoon yesterday, at rest (in chair). given lasix 40 iv, sob improved significantly (dr giraldo was at bedside). then given 80 iv per my rec later at night. feels exhausted. no sob currently no cp, palpitations, syncope no cigs - Current Medication List Current Medications: Active Medications Acetaminophen (Tylenol -) 500 mg PO Q6H PRN PRN Reason: PAIN Last Admin: 02/09/18 11:26 Dose: 500 mg Albuterol/Ipratropium (Duoneb -) 1 amp NEB Q4H PRN PRN Reason: SHORTNESS OF BREATH Albuterol/Ipratropium (Duoneb -) 1 amp NEB RTID [facility] Last Admin: 02/12/18 06:54 Dose: 1 amp Diphenhydramine/Nystatin/Lidocaine (Nystatin Mouth Rinse *Df Formula*) 5 ml MM ACHS [facility] Last Admin: 02/12/18 06:53 Dose: 5 ml Enoxaparin Sodium (Lovenox -) 30 mg SQ DAILY [facility] Last Admin: 02/11/18 09:46 Dose: 30 mg Piperacillin Sod/Tazobactam Sod (Zosyn 3.375gm Ivpb (Pre-Docked)) 3.375 gm in 50 mls @ 100 mls/hr IVPB Q8H-IV [facility]; Protocol Last Admin: 02/12/18 02:00 Dose: 100 mls/hr Lactobacillus Acidophilus (Bacid -) 1 tab PO BID [facility] Last Admin: 02/11/18 21:46 Dose: 1 tab Levothyroxine Sodium (Synthroid -) 25 mcg PO DAILY@0700 [facility] Last Admin: 02/12/18 06:52 Dose: 25 mcg Loperamide HCl (Imodium -) 2 mg PO Q8H PRN PRN Reason: DIARRHEA Last Admin: 02/09/18 11:27 Dose: 2 mg Lorazepam (Ativan -) 0.5 mg PO HS PRN PRN Reason: ANXIETY Last Admin: 02/11/18 21:46 Dose: 0.5 mg Magnesium Oxide (Mag-Ox -) 400 mg PO BID [facility] Last Admin: 02/11/18 21:46 Dose: 400 mg Potassium Chloride (K-Dur -) 20 meq PO DAILY [facility] Last Admin: 02/11/18 19:26 Dose: 20 meq Saliva Substitute (Mouthkote Solution -) 1 applic MM Q4HWA [facility] Last Admin: 02/12/18 06:52 Dose: 1 applic - Objective Vital Signs: Vital Signs Temperature 97.8 F 02/12/18 06:00 Pulse Rate 89 02/12/18 06:00 Respiratory Rate 18 02/12/18 06:00 Blood Pressure 113/60 02/12/18 06:00 O2 Sat by Pulse Oximetry (%) 99 02/11/18 21:00 Constitutional: Yes: No Distress, Calm Eyes: No: Sclera Icterus HENT: No: Nasal Congestion Cardiovascular: Yes: Regular Rate and Rhythm, Murmur (hi pitched NEEL lusb), S1, S2, Other (PMI non diplaced). No: JVD, Gallop Respiratory: Yes: Diminished (bases), Rhonchi. No: Accessory Muscle Use Gastrointestinal: Yes: Normal Bowel Sounds, Soft. No: Tenderness Musculoskeletal: Yes: Other (No kyphosis) Extremities: No: Cold Edema: No (stockings) Integumentary: No: Jaundice Neurological: Yes: Alert, Oriented (x3) Psychiatric: No: Agitated Assessment/Plan CXR: bilat effusions. incr'd interstitial markings. no vascular redistribution. no genoveva B lines--similar to 02/01 CT chest: bilat effusions, ATX, no infiltrates, mild mediast adenopathy Echo 01/2018: lvef 40, global hk, mod-sev mr, sev as, mod-sev ar. IMAGES REVIEWED: EF 40 vs 40-45% range. suspect AI is mild-moderate (PHT likely short due to non-compliant LV). suspect MR likely is moderate range visually. severe posterior MAC, thickened leaflets with visually restricted motion--likely mild- moderate mitral stenosis (mean gradient approx 3-4 mmHg at 79 bpm). mean AV gradient approx 80, peak mi 5.3. pleural effusions, acute valvular HFpEF, ? PNA -known critical since 2016. -pt appears to be in acute CHF, triggered by recent diet sodium load, +/- contribution from recent URI tipping her over. new leg swelling and MUKHERJEE tracks with timing of oral sodium loads in diet, and had partial response to po lasix as outpt, then sx's worsened (? b/c lasix dose was decreased--pt uncertain on this point). -suspect mild JVD on exam and + hepatojugular reflux c/w high right-sided pressures. -received lasix 20 po x 1 here, only minimal UOP since. will give trial dose lasix 40 iv x 1 tonight--suspect she will diurese significantly to this (lasix naive). will monitor weight trend from today to tomorrow and subjective UOP response. -trend daily bun/creat while diuresing. -BNP 25K (baseline 10K) -no consistent downward wt trend with lasix 80 iv--pt reported sob improved. lasix held on 02/09 for bun/creat bump (1.6) -02/11: cxr from 02/10 unchanged, peristent effusions and vasc engorgement. remains sob with little activity. no JVD/neg HJR but she must still be volume overloaded given the sizable effusions that persist (albumin is preserved). she is not diuresing very much with lasix 40 iv (urinated 3x), wt unchanged. -suspect she has fixed, low cardiac output from critical with reduced LVEF and hence cannot perfuse kidneys adequately to diurese. doubt milrinone will have major effect here given fixed LV obstruction. -became increasingly sob at rest yest pm, received lasix 40 iv x 1 with improvement, then 80 iv later in pm. urine output not charted but per dtr ( reliable historian), approximately 950 cc total. -02/12: symptomatic improvement with lasix yesterday, may have to tolerate higher creatinine new baseline in order to effectively diurese her. d/w'd pt, dtr and dr giraldo: plan will be to try to optimize her medically here (diurese , then if adequate bp room initiate very low dose BB-->NOAM later) and then have outpt f/u [place] [facility] [place]. -creat 1.7--lasix 80 iv x 1 now. repeat bun/creatinine at 3pm--if stable, will give additional lasix 80 iv tonight -if cannot diurese her with iv lasix, will need to consider [place] [facility] [place], and consideration of BAV as bridge to TAVR if pt willing. began the discussion of this possibility with pt and dtr today, she is reluctant but will consider it further. -despite lasix held, pt's sx's have improved -IV abx coverage per ID -no IV fluids Ao stenosis: -pt diagnosed with critical approx 2 yrs ago (est CRISTINO 0.4 cm2). -was asymptomatic with reasonable functional capacity at that time, and since ( per dtr). 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
[2018-02-12 08:36] LABS: ALBUMIN 3.3 g/dl (3.5-5.0); ALK PHOS 59 U/L (32-92); ANION GAP 8 MMOL/L (8-16); BILIRUBIN,TOTAL 1.1 mg/dl (0.2-1.0); BLOOD UREA NITROGEN 27 mg/dl (7-18); CALCIUM 8.6 mg/dl (8.4-10.2); CHLORIDE 102 mmol/L (98-107); CO2 27 mmol/L (22-28); CREATININE 1.7 mg/dl (0.6-1.3); GLUCOSE,RANDOM 114 mg/dl (74-106); POTASSIUM 3.7 mmol/L (3.5-5.1); SGOT/AST 19 U/L (10-42); SGPT/ALT 12 U/L (10-40); SODIUM 137 mmol/L (136-145); TOT PROT 5.5 g/dl (6.4-8.3)
[2018-02-12] MEDS: LACTOBACILLUS ACIDOPHILUS 1 TABLET PO SCH ×2 (09:32→21:41)
[2018-02-12] MEDS: MAGNESIUM OXIDE 400 MG TABLET (FP) PO SCH ×2 (09:32→21:41)
[2018-02-12] MEDS: ENOXAPARIN NA (PORCINE) 30 MG/0.3 ML DISP.SYRIN SQ SCH (09:33)
[2018-02-12] MEDS ORDERED: FUROSEMIDE 40 MG/4 ML INJECTABLE VIAL IVPUSH ONE ×2 (09:46→10:10)
[2018-02-12] MEDS ORDERED: POTASSIUM CHLORIDE TABS 20 MEQ TABLET.ER (FP) PO ONE ×2 (10:00→22:00)
--- NOTE | 2018-02-12 10:18 | PN ---
Progress Note, Physician History of Present Illness: Awake, alert in bed No c/o chest pain / dyspnea Appears slightly tachypneic at rest C/O dysphagia, loose BMs C diff PCR (-) No c/o fever/ chills Afebrile WBC 27K Flu swab (-), BC (-) Legionella ag(-) - Current Medication List Current Medications: Active Medications Acetaminophen (Tylenol -) 500 mg PO Q6H PRN PRN Reason: PAIN Last Admin: 02/09/18 11:26 Dose: 500 mg Albuterol/Ipratropium (Duoneb -) 1 amp NEB Q4H PRN PRN Reason: SHORTNESS OF BREATH Albuterol/Ipratropium (Duoneb -) 1 amp NEB RTID [facility] Last Admin: 02/12/18 09:00 Dose: 1 amp Diphenhydramine/Nystatin/Lidocaine (Nystatin Mouth Rinse *Df Formula*) 5 ml MM Q6HPO [facility] Diphenhydramine/Nystatin/Lidocaine (Nystatin Mouth Rinse *Df Formula*) 5 ml MM Q6HPO [facility] Enoxaparin Sodium (Lovenox -) 30 mg SQ DAILY [facility] Last Admin: 02/12/18 09:33 Dose: 30 mg Piperacillin Sod/Tazobactam Sod (Zosyn 3.375gm Ivpb (Pre-Docked)) 3.375 gm in 50 mls @ 100 mls/hr IVPB Q8H-IV [facility]; Protocol Last Admin: 02/12/18 09:33 Dose: 100 mls/hr Lactobacillus Acidophilus (Bacid -) 1 tab PO BID [facility] Last Admin: 02/12/18 09:32 Dose: 1 tab Levothyroxine Sodium (Synthroid -) 25 mcg PO DAILY@0700 [facility] Last Admin: 02/12/18 06:52 Dose: 25 mcg Loperamide HCl (Imodium -) 2 mg PO Q8H PRN PRN Reason: DIARRHEA Last Admin: 02/09/18 11:27 Dose: 2 mg Lorazepam (Ativan -) 0.5 mg PO HS PRN PRN Reason: ANXIETY Last Admin: 02/11/18 21:46 Dose: 0.5 mg Magnesium Oxide (Mag-Ox -) 400 mg PO BID [facility] Last Admin: 02/12/18 09:32 Dose: 400 mg Saliva Substitute (Mouthkote Solution -) 1 applic MM Q4HWA [facility] Last Admin: 02/12/18 09:33 Dose: 1 applic - Objective Vital Signs: Vital Signs Temperature 97.8 F 02/12/18 06:00 Pulse Rate 88 02/12/18 08:38 Respiratory Rate 18 02/12/18 06:00 Blood Pressure 104/47 L 02/12/18 08:38 O2 Sat by Pulse Oximetry (%) 99 02/11/18 21:00 Constitutional: Yes: No Distress Eyes: Yes: Conjunctiva Clear Cardiovascular: Yes: Regular Rate and Rhythm, S1, S2 Respiratory: Yes: Other (few crepitations, bases) Gastrointestinal: Yes: Normal Bowel Sounds, Soft. No: Tenderness Edema: Yes Labs: CBC, BMP 02/12/18 07:54 02/12/18 07:54 Assessment/Plan CHF ? bibasilar pneumonia Bilateral pleural effusions Leukocytosis- multifactorial ( CLL, infection) Loose BMs Day #6 empiric zosyn D/C antibiotics Fluconazole for thrush
[2018-02-12] MEDS ORDERED: NYSTATIN/DPHA/LIDO/SUCRAFATE 120 ML MOUTHWASH MM PRN (10:26)
[2018-02-12] MEDS: FLUCONAZOLE 100 MG TABLET (UD) PO SCH (11:17)
[2018-02-12] MEDS ORDERED: NYSTATIN/DPHA/LIDO/SUCRAFATE 120 ML MOUTHWASH MM SCH ×2 (12:00)
[2018-02-12] MEDS ORDERED: PT OWN MED DRAWER 7, Y5N ONE (14:01)
[2018-02-12 16:32] LABS: ANION GAP 9 MMOL/L (8-16); BLOOD UREA NITROGEN 27 mg/dl (7-18); CALCIUM 8.5 mg/dl (8.4-10.2); CHLORIDE 100 mmol/L (98-107); CO2 25 mmol/L (22-28); CREATININE 1.6 mg/dl (0.6-1.3); GLUCOSE,RANDOM 119 mg/dl (74-106); POTASSIUM 3.3 mmol/L (3.5-5.1); SODIUM 134 mmol/L (136-145)
[2018-02-12] MEDS ORDERED: FUROSEMIDE 40 MG/4 ML INJECTABLE VIAL IVPB ONE (16:37)
[2018-02-12] MEDS ORDERED: POTASSIUM CHLORIDE TABS 10 MEQ TABLET.ER (FP) PO ONE (16:37)
--- NOTE | 2018-02-12 19:25 | PN ---
Progress Note, Physician Chief Complaint: Patient had a very good output during the night after she received 80 mg iv Lasix, complaining of being very tired but she looks less short of breath and her cough is sporadic. The oral discomfort from the thrush is still present, there was no diarrhea last night or this morning. History of Present Illness: 87 yo female was admitted for right parahilar pneumonia and new onset CHF. 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 Zosyn and Zithromax antibiotics were stopped today. ALl cultures including the C diff titers are negative. The diuretic response to LAsix was good with an output of more he 900 cc of urine. Dysphagia is persisting, the bowel movements are formed . Orthopnea improved and she can lye flat at 30 degrees in bed without shortness of breath or increased cough. - Current Medication List Current Medications: Active Medications Acetaminophen (Tylenol -) 500 mg PO Q6H PRN PRN Reason: PAIN Last Admin: 02/09/18 11:26 Dose: 500 mg Albuterol/Ipratropium (Duoneb -) 1 amp NEB Q4H PRN PRN Reason: SHORTNESS OF BREATH Albuterol/Ipratropium (Duoneb -) 1 amp NEB RTID [facility] Last Admin: 02/12/18 14:13 Dose: 1 amp Diphenhydramine/Nystatin/Lidocaine (Nystatin Mouth Rinse *Df Formula*) 5 ml MM Q6HPO [facility] Last Admin: 02/12/18 17:36 Dose: 5 ml Diphenhydramine/Nystatin/Lidocaine (Nystatin Mouth Rinse *Df Formula*) 5 ml MM ACHS PRN PRN Reason: DYSPHAGIA Enoxaparin Sodium (Lovenox -) 30 mg SQ DAILY [facility] Last Admin: 02/12/18 09:33 Dose: 30 mg Fluconazole (Diflucan -) 100 mg PO DAILY [facility] Last Admin: 02/12/18 11:17 Dose: 100 mg Lactobacillus Acidophilus (Bacid -) 1 tab PO BID [facility] Last Admin: 02/12/18 09:32 Dose: 1 tab Levothyroxine Sodium (Synthroid -) 25 mcg PO DAILY@0700 [facility] Last Admin: 02/12/18 06:52 Dose: 25 mcg Loperamide HCl (Imodium -) 2 mg PO Q8H PRN PRN Reason: DIARRHEA Last Admin: 02/09/18 11:27 Dose: 2 mg Lorazepam (Ativan -) 0.5 mg PO HS PRN PRN Reason: ANXIETY Last Admin: 02/11/18 21:46 Dose: 0.5 mg Magnesium Oxide (Mag-Ox -) 400 mg PO BID [facility] Last Admin: 02/12/18 09:32 Dose: 400 mg Potassium Chloride (K-Dur -) 40 meq PO DAILY [facility] Potassium Chloride (K-Dur -) 20 meq PO ONCE ONE Stop: 02/12/18 22:01 Saliva Substitute (Mouthkote Solution -) 1 applic MM Q4HWA [facility] Last Admin: 02/12/18 17:36 Dose: 1 applic - Objective Vital Signs: Vital Signs Temperature 97.3 F L 02/12/18 14:11 Pulse Rate 94 H 02/12/18 14:11 Respiratory Rate 18 02/12/18 14:11 Blood Pressure 115/48 L 02/12/18 14:11 O2 Sat by Pulse Oximetry (%) 99 02/12/18 14:13 Constitutional: Yes: No Distress, Calm Eyes: Yes: Conjunctiva Clear, EOM Intact HENT: Yes: Atraumatic, Normocephalic Neck: Yes: Supple, Trachea Midline Cardiovascular: Yes: Regular Rate and Rhythm, S1, S2 Respiratory: Yes: Regular, Cough (sporadic) Gastrointestinal: No: Hepatomegaly, Splenomegaly Edema: LLE: 1+, RLE: 1+ Peripheral Pulses WNL: Yes Neurological: Yes: Alert, Oriented, Weakness Psychiatric: Yes: Alert, Oriented Labs: CBC, BMP 02/12/18 07:54 02/12/18 15:34 Problem List - Problems (1) Right middle lobe pneumonia Assessment/Plan: stopped Zithromax and Zosyn iv Bacid to prevent c diff infection to be continued for a few more days Code(s): J18.1 - LOBAR PNEUMONIA, UNSPECIFIED ORGANISM (2) CLL (chronic lymphocytic leukemia) Assessment/Plan: WBC spiking today to 27, possibly in the context of intense diuresis? add lovenox 30 mg sub cut daily for DVT prophylaxis Code(s): C91.10 - CHRONIC LYMPHOCYTIC LEUK OF B-CELL TYPE NOT ACHIEVE REMIS (3) Aortic stenosis Assessment/Plan: severe according to the ECHO and with LVEF of 40% creatinine holding at 1.7 80 mg of Lasix prescribed this morning Code(s): I35.0 - NONRHEUMATIC AORTIC (VALVE) STENOSIS Qualifiers: Cardiac valve disease etiology: nonrheumatic Qualified Code(s): I35.0 - Nonrheumatic aortic (valve) stenosis (4) CHF (congestive heart failure) Assessment/Plan: LAsix being administered with the goal of reestablishing the euvolemic status of the patient CXR ad BNP in am Code(s): I50.9 - HEART FAILURE, UNSPECIFIED Qualifiers: Heart failure type: combined systolic and diastolic (5) Hypothyroidism Assessment/Plan: continue Synthroid daily Code(s): E03.9 - HYPOTHYROIDISM, UNSPECIFIED (6) Edema Assessment/Plan: improved and at baseline Code(s): R60.9 - EDEMA, UNSPECIFIED (7) Diarrhea Assessment/Plan: on BAcid and better today C diff PCR is negative advance the diet Code(s): R19.7 - DIARRHEA, UNSPECIFIED (8) Thrush, oral Assessment/Plan: started Diflucan daily nystatinn mixture topically swish and spit Code(s): B37.0 - CANDIDAL STOMATITIS
[2018-02-12] MEDS: LORazepam 0.5 MG TABLET PO PRN (21:40)
[2018-02-13] MEDS: NYSTATIN/DPHA/LIDO/SUCRAFATE 120 ML MOUTHWASH MM SCH ×3 (06:30→17:41)
[2018-02-13] MEDS: LYTES/YERBA SANTA 240 ML BOTTLE MM SCH ×5 (06:30→21:41)
[2018-02-13] MEDS: LEVOTHYROXINE NA 25 MCG TABLET (FP) PO SCH (06:31)
[2018-02-13] MEDS ORDERED: REFRIGERATED ANITBIOTICS ONE ×2 (07:21→10:47)
[2018-02-13 08:26] LABS: HEMATOCRIT 35.1 % (32.4-45.2); HEMOGLOBIN 11.4 GM/dl (10.7-15.3); MCHC 32.4 g/dl (32.0-36.0); MEAN PLT VOLUME 7.6 fl (7.5-11.1); PLATELET COUNT 230 K/MM3 (134-434); RBC 4.39 M/mm3 (3.60-5.2); RDW 17.4 % (11.6-15.6)
[2018-02-13] MEDS: ALBUTEROL SO4 2.5/IPRATROPIUM 0.5 INH SOL 3 ML VIAL.NEB. NEB SCH ×3 (08:40→20:57)
[2018-02-13 08:46] LABS: ANION GAP 10 MMOL/L (8-16); BLOOD UREA NITROGEN 29 mg/dl (7-18); CALCIUM 8.9 mg/dl (8.4-10.2); CHLORIDE 99 mmol/L (98-107); CO2 27 mmol/L (22-28); CREATININE 1.8 mg/dl (0.6-1.3); GLUCOSE,RANDOM 108 mg/dl (74-106); POTASSIUM 4.1 mmol/L (3.5-5.1); SODIUM 136 mmol/L (136-145)
--- NOTE | 2018-02-13 09:09 | PN ---
Progress Note (short form) - Note Progress Note: cc: sob History of Present Illness: feels much better today, sob is improving. Received 80 mg IV lasix in AM and PM yesterday. no cp, palpitations, syncope no cigs Current Medications Acetaminophen (Tylenol -) 500 mg PO Q6H PRN PRN Reason: PAIN Last Admin: 02/09/18 11:26 Dose: 500 mg Albuterol/Ipratropium (Duoneb -) 1 amp NEB Q4H PRN PRN Reason: SHORTNESS OF BREATH Albuterol/Ipratropium (Duoneb -) 1 amp NEB RTID [facility] Last Admin: 02/12/18 21:41 Dose: 1 amp Diphenhydramine/Nystatin/Lidocaine (Nystatin Mouth Rinse *Df Formula*) 5 ml MM Q6HPO [facility] Last Admin: 02/13/18 06:30 Dose: Not Given Diphenhydramine/Nystatin/Lidocaine (Nystatin Mouth Rinse *Df Formula*) 5 ml MM ACHS PRN PRN Reason: DYSPHAGIA Enoxaparin Sodium (Lovenox -) 30 mg SQ DAILY [facility] Last Admin: 02/12/18 09:33 Dose: 30 mg Fluconazole (Diflucan -) 100 mg PO DAILY [facility] Last Admin: 02/12/18 11:17 Dose: 100 mg Lactobacillus Acidophilus (Bacid -) 1 tab PO BID [facility] Last Admin: 02/12/18 21:41 Dose: 1 tab Levothyroxine Sodium (Synthroid -) 25 mcg PO DAILY@0700 [facility] Last Admin: 02/13/18 06:31 Dose: 25 mcg Loperamide HCl (Imodium -) 2 mg PO Q8H PRN PRN Reason: DIARRHEA Last Admin: 02/09/18 11:27 Dose: 2 mg Lorazepam (Ativan -) 0.5 mg PO HS PRN PRN Reason: ANXIETY Last Admin: 02/12/18 21:40 Dose: 0.5 mg Magnesium Oxide (Mag-Ox -) 400 mg PO BID [facility] Last Admin: 02/12/18 21:41 Dose: 400 mg Potassium Chloride (K-Dur -) 40 meq PO DAILY [facility] Saliva Substitute (Mouthkote Solution -) 1 applic MM Q4HWA [facility] Last Admin: 02/13/18 06:30 Dose: Not Given - Objective Vital Signs: Vital Signs Period Temp Pulse Resp BP Sys/Jones Pulse Ox Last 24 Hr 97.3 F-98.1 F 94-102 18-20 100-115/44-88 92-99 Constitutional: Yes: No Distress, Calm Eyes: No: Sclera Icterus HENT: No: Nasal Congestion Cardiovascular: Yes: Regular Rate and Rhythm, Murmur (hi pitched NEEL lusb), S1, S2, Other (PMI non diplaced). No: JVD, Gallop Respiratory: Yes: Diminished (bases), no rhonchi. No: Accessory Muscle Use Gastrointestinal: Yes: Normal Bowel Sounds, Soft. No: Tenderness Musculoskeletal: Yes: Other (No kyphosis) Extremities: No: Cold Edema: No (stockings) Integumentary: No: Jaundice Neurological: Yes: Alert, Oriented (x3) Psychiatric: No: Agitated Assessment/Plan CXR: bilat effusions. incr'd interstitial markings. no vascular redistribution. no genoveva B lines--similar to 02/01 CT chest: bilat effusions, ATX, no infiltrates, mild mediast adenopathy Echo 01/2018: lvef 40, global hk, mod-sev mr, sev as, mod-sev ar. IMAGES REVIEWED: EF 40 vs 40-45% range. suspect AI is mild-moderate (PHT likely short due to non-compliant LV). suspect MR likely is moderate range visually. severe posterior MAC, thickened leaflets with visually restricted motion--likely mild- moderate mitral stenosis (mean gradient approx 3-4 mmHg at 79 bpm). mean AV gradient approx 80, peak mi 5.3. pleural effusions, acute valvular HFpEF, ? PNA -known critical since 2016. -pt appears to be in acute CHF, triggered by recent diet sodium load, +/- contribution from recent URI tipping her over. new leg swelling and MUKHERJEE tracks with timing of oral sodium loads in diet, and had partial response to po lasix as outpt, then sx's worsened (? b/c lasix dose was decreased--pt uncertain on this point). -suspect mild JVD on exam and + hepatojugular reflux c/w high right-sided pressures. -02/10 received lasix 20 po x 1 here, only minimal UOP since. will give trial dose lasix 40 iv x 1 tonight--suspect she will diurese significantly to this ( lasix naive). will monitor weight trend from today to tomorrow and subjective UOP response. -trend daily bun/creat while diuresing. -BNP 25K (baseline 10K) -no consistent downward wt trend with lasix 80 iv--pt reported sob improved. lasix held on 02/09 for bun/creat bump (1.6) -02/11: cxr from 02/10 unchanged, peristent effusions and vasc engorgement. remains sob with little activity. no JVD/neg HJR but she must still be volume overloaded given the sizable effusions that persist (albumin is preserved). she is not diuresing very much with lasix 40 iv (urinated 3x), wt unchanged. -suspect she has fixed, low cardiac output from critical with reduced LVEF and hence cannot perfuse kidneys adequately to diurese. doubt milrinone will have major effect here given fixed LV obstruction. -became increasingly sob at rest yest pm, received lasix 40 iv x 1 with improvement, then 80 iv later in pm. urine output not charted but per dtr ( reliable historian), approximately 950 cc total. -02/12: symptomatic improvement with lasix yesterday, may have to tolerate higher creatinine new baseline in order to effectively diurese her. d/w'd pt, dtr and dr giraldo: plan will be to try to optimize her medically here (diurese , then if adequate bp room initiate very low dose BB-->NOAM later) and then [place] f[place] [facility] [place]. -creat 1.7--lasix 80 iv x 1 now. repeat bun/creatinine at 3pm--if stable, will give additional lasix 80 iv tonight - 02/13 Cr rising, 1.8, weight up 121 lbs ->123 lbs., however yesterday's weight may have been inaccurate. CXR ordered for today is pending. lasix 80 mg IV x 1 now, will recheck BMP this afternoon and redose lasix if BUN/Cr stable -if cannot diurese her with iv lasix, will need to consider transfer to [facility] for inpt HF optimization, and consideration of BAV as bridge to TAVR if pt willing. began the discussion of this possibility with pt and dtr, she is reluctant but will consider it further if needed. -IV abx coverage per ID - dc'ed -no IV fluids Ao stenosis: -pt diagnosed with critical approx 2 yrs ago (est CRISTINO 0.4 cm2). -was asymptomatic with reasonable functional capacity at that time, and since ( per dtr). 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
--- NOTE | 2018-02-13 09:25 | PN ---
Progress Note, Physician History of Present Illness: Awake, alert in bed Appears more comfortable, less dyspneic No c/o chest pain / dyspnea No diarrhea today C diff PCR (-) No c/o fever/ chills Afebrile WBC increased 51K Flu swab (-), BC (-) Legionella ag(-) - Current Medication List Current Medications: Active Medications Acetaminophen (Tylenol -) 500 mg PO Q6H PRN PRN Reason: PAIN Last Admin: 02/09/18 11:26 Dose: 500 mg Albuterol/Ipratropium (Duoneb -) 1 amp NEB Q4H PRN PRN Reason: SHORTNESS OF BREATH Albuterol/Ipratropium (Duoneb -) 1 amp NEB RTID [facility] Last Admin: 02/12/18 21:41 Dose: 1 amp Diphenhydramine/Nystatin/Lidocaine (Nystatin Mouth Rinse *Df Formula*) 5 ml MM Q6HPO [facility] Last Admin: 02/13/18 06:30 Dose: Not Given Diphenhydramine/Nystatin/Lidocaine (Nystatin Mouth Rinse *Df Formula*) 5 ml MM ACHS PRN PRN Reason: DYSPHAGIA Enoxaparin Sodium (Lovenox -) 30 mg SQ DAILY [facility] Last Admin: 02/12/18 09:33 Dose: 30 mg Fluconazole (Diflucan -) 100 mg PO DAILY [facility] Last Admin: 02/12/18 11:17 Dose: 100 mg Furosemide (Lasix Injection -) 80 mg IVPUSH ONCE ONE Stop: 02/13/18 09:17 Lactobacillus Acidophilus (Bacid -) 1 tab PO BID [facility] Last Admin: 02/12/18 21:41 Dose: 1 tab Levothyroxine Sodium (Synthroid -) 25 mcg PO DAILY@0700 [facility] Last Admin: 02/13/18 06:31 Dose: 25 mcg Loperamide HCl (Imodium -) 2 mg PO Q8H PRN PRN Reason: DIARRHEA Last Admin: 02/09/18 11:27 Dose: 2 mg Lorazepam (Ativan -) 0.5 mg PO HS PRN PRN Reason: ANXIETY Last Admin: 02/12/18 21:40 Dose: 0.5 mg Magnesium Oxide (Mag-Ox -) 400 mg PO BID [facility] Last Admin: 02/12/18 21:41 Dose: 400 mg Potassium Chloride (K-Dur -) 40 meq PO DAILY [facility] Saliva Substitute (Mouthkote Solution -) 1 applic MM Q4HWA [facility] Last Admin: 02/13/18 06:30 Dose: Not Given - Objective Vital Signs: Vital Signs Temperature 98.1 F 02/13/18 07:00 Pulse Rate 102 H 02/13/18 07:00 Respiratory Rate 20 02/13/18 07:00 Blood Pressure 111/88 02/13/18 07:00 O2 Sat by Pulse Oximetry (%) 92 L 02/13/18 07:00 Constitutional: Yes: No Distress Eyes: Yes: Conjunctiva Clear Cardiovascular: Yes: Regular Rate and Rhythm, S1, S2 Respiratory: Yes: CTA Bilaterally Gastrointestinal: Yes: Normal Bowel Sounds, Soft. No: Tenderness Edema: Yes Labs: CBC, BMP 02/13/18 07:53 02/13/18 07:53 Assessment/Plan CHF ? bibasilar pneumonia - completed course of antibiotics. Now off. Bilateral pleural effusions Leukocytosis- multifactorial ( CLL, infection) WBC increased 51K no diff. More likely reflects CLL than infection Observe off antibiotics Repeat CXR today Hematology follow up
[2018-02-13] MEDS ORDERED: FUROSEMIDE 40 MG/4 ML INJECTABLE VIAL IVPUSH ONE ×2 (09:40→16:22)
[2018-02-13] MEDS ORDERED: FUROSEMIDE 40 MG TABLET (FP) PO SCH (10:00)
[2018-02-13] MEDS: POTASSIUM CHLORIDE TABS 10 MEQ TABLET.ER (FP) PO SCH (10:40)
[2018-02-13] MEDS: LACTOBACILLUS ACIDOPHILUS 1 TABLET PO SCH ×2 (10:40→21:29)
[2018-02-13] MEDS: MAGNESIUM OXIDE 400 MG TABLET (FP) PO SCH ×2 (10:40→21:29)
[2018-02-13] MEDS: FLUCONAZOLE 100 MG TABLET (UD) PO SCH (10:40)
[2018-02-13] MEDS: ENOXAPARIN NA (PORCINE) 30 MG/0.3 ML DISP.SYRIN SQ SCH (10:40)
[2018-02-13 11:10] LABS: OVALOCYTE 1+
--- NOTE | 2018-02-13 14:23 | PN ---
Progress Note, Physician Chief Complaint: Patient was diuresed last night with 80 mg of LAsix,in addition to another dose of 80 mg given in the morning. She desaturated to 92% during the night but to my examination today at 2:15 PM she is off Oxygen and nor dyspneic. She is comfortable but extremely weak. The patient is due for a second dose of Lasix as per her [employer] at 4pm, once results of her BMP will become available. We are unable to measure an accurate urine output due to her incontinence but her weight went from a baseline of 135 lbs in November to 123 lbs today. Her CXR today does not show any significant improvement and the patient continues to have pleural effusions.The infiltrate in the left parahilar area is persisting. There is no orthostatic hypotension today at 2;30 PM The patient's appetite improved, and the oral thrush is not bothering her so much History of Present Illness: 87 yo female was admitted for right parahilar pneumonia and new onset CHF. 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 She received treatment with Zosyn and Zithromax antibiotics which were stopped on 02/12/18. ALl cultures including the C diff titers are negative. WE CAN NOT measure the urinary output after diuretic because the patient is incontinent. Dysphagia is less, the bowel movements are formed and the orthopnea improved. - Current Medication List Current Medications: Active Medications Acetaminophen (Tylenol -) 500 mg PO Q6H PRN PRN Reason: PAIN Last Admin: 02/09/18 11:26 Dose: 500 mg Albuterol/Ipratropium (Duoneb -) 1 amp NEB Q4H PRN PRN Reason: SHORTNESS OF BREATH Albuterol/Ipratropium (Duoneb -) 1 amp NEB RTID [facility] Last Admin: 02/13/18 08:40 Dose: 1 amp Diphenhydramine/Nystatin/Lidocaine (Nystatin Mouth Rinse *Df Formula*) 5 ml MM Q6HPO [facility] Last Admin: 02/13/18 06:30 Dose: Not Given Diphenhydramine/Nystatin/Lidocaine (Nystatin Mouth Rinse *Df Formula*) 5 ml MM ACHS PRN PRN Reason: DYSPHAGIA Enoxaparin Sodium (Lovenox -) 30 mg SQ DAILY [facility] Last Admin: 02/13/18 10:40 Dose: 30 mg Fluconazole (Diflucan -) 100 mg PO DAILY [facility] Last Admin: 02/13/18 10:40 Dose: 100 mg Lactobacillus Acidophilus (Bacid -) 1 tab PO BID [facility] Last Admin: 02/13/18 10:40 Dose: 1 tab Levothyroxine Sodium (Synthroid -) 25 mcg PO DAILY@0700 [facility] Last Admin: 02/13/18 06:31 Dose: 25 mcg Loperamide HCl (Imodium -) 2 mg PO Q8H PRN PRN Reason: DIARRHEA Last Admin: 02/09/18 11:27 Dose: 2 mg Lorazepam (Ativan -) 0.5 mg PO HS PRN PRN Reason: ANXIETY Last Admin: 02/12/18 21:40 Dose: 0.5 mg Magnesium Oxide (Mag-Ox -) 400 mg PO BID [facility] Last Admin: 02/13/18 10:40 Dose: 400 mg Potassium Chloride (K-Dur -) 40 meq PO DAILY [facility] Last Admin: 02/13/18 10:40 Dose: 40 meq Saliva Substitute (Mouthkote Solution -) 1 applic MM Q4HWA [facility] Last Admin: 02/13/18 10:41 Dose: 1 applic - Objective Vital Signs: Vital Signs Temperature 97.7 F 02/13/18 09:00 Pulse Rate 100 H 02/13/18 13:56 Respiratory Rate 18 02/13/18 09:00 Blood Pressure 124/54 L 02/13/18 13:56 O2 Sat by Pulse Oximetry (%) 94 L 02/13/18 09:00 Constitutional: Yes: No Distress, Calm, Other (weak and falling asleep easily) Eyes: Yes: Conjunctiva Clear, EOM Intact HENT: Yes: Atraumatic, Normocephalic Neck: Yes: Supple, Trachea Midline Cardiovascular: Yes: Regular Rate and Rhythm, S1, S2. No: Murmur (no murmur to auscultation today) Respiratory: Yes: CTA Bilaterally, Cough (sporadic, can not expectorate), Rhonchi (left base clearing wioth coughj and light chest Pt) Gastrointestinal: Yes: Normal Bowel Sounds, Soft, Other (no JVD and no hepatojugular reflux.). No: Hepatomegaly Extremities: Yes: Other (decreased edema). No: Calf Tenderness Edema: LLE: Trace, RLE: Trace Peripheral Pulses WNL: Yes Labs: CBC, BMP 02/13/18 07:53 02/13/18 07:53 - ....Imaging Chest X-ray: Other (no cignificant changes) Problem List - Problems (1) Right middle lobe pneumonia Assessment/Plan: gentle Chest PT completed Zithromax and Zosyn iv on 02/12/18 Bacid to prevent c diff infection to be continued for a few more days the radiological image on parahilar infiltrate is persisting Code(s): J18.1 - LOBAR PNEUMONIA, UNSPECIFIED ORGANISM (2) CLL (chronic lymphocytic leukemia) Assessment/Plan[place] [id number], hemoconcentration? in the context of intense diuresis? but also maybe due to the patient's CLL, [place] [id number] in December 2017 added lovenox 30 mg sub cut daily for DVT prophylaxis Code(s): C91.10 - CHRONIC LYMPHOCYTIC LEUK OF B-CELL TYPE NOT ACHIEVE REMIS (3) Aortic stenosis Assessment/Plan: severe according to the ECHO and with LVEF of 40% possible transfer to [place] for Aortic baloon valvuloplasty creatinine holding at 1.6 today 80 mg of Lasix prescribed this morning, other 80 mg possibly later today Code(s): I35.0 - NONRHEUMATIC AORTIC (VALVE) STENOSIS Qualifiers: Cardiac valve disease etiology: nonrheumatic Qualified Code(s): I35.0 - Nonrheumatic aortic (valve) stenosis (4) CHF (congestive heart failure) Assessment/Plan: LAsix being administered with the goal of reestablishing the euvolemic status of the patient\ Code(s): I50.9 - HEART FAILURE, UNSPECIFIED Qualifiers: Heart failure type: combined systolic and diastolic (5) Hypothyroidism Assessment/Plan: continue Synthroid daily Code(s): E03.9 - HYPOTHYROIDISM, UNSPECIFIED (6) Edema Assessment/Plan: improved and at baseline Code(s): R60.9 - EDEMA, UNSPECIFIED (7) Diarrhea Assessment/Plan: on BAcid and better today C diff PCR is negative advance the diet Code(s): R19.7 - DIARRHEA, UNSPECIFIED (8) Thrush, oral Assessment/Plan: started Diflucan daily nystatinn mixture topically swish and spit Code(s): B37.0 - CANDIDAL STOMATITIS Assessment/Plan 87 yo female with Severe Aortic Stenosis and CHF will be transferred to [facility] for Aortic Baloon Valvuloplasty.
[2018-02-13 14:38] LABS: N-TERMINAL BNP 19080.49 pg/ml (5-450)
[2018-02-13 16:06] LABS: ANION GAP 10 MMOL/L (8-16); BLOOD UREA NITROGEN 32 mg/dl (7-18); CALCIUM 8.9 mg/dl (8.4-10.2); CHLORIDE 98 mmol/L (98-107); CO2 25 mmol/L (22-28); CREATININE 1.6 mg/dl (0.6-1.3); GLUCOSE,RANDOM 135 mg/dl (74-106); POTASSIUM 4.4 mmol/L (3.5-5.1); SODIUM 133 mmol/L (136-145)
[2018-02-13] MEDS: LORazepam 0.5 MG TABLET PO PRN (21:28)
[2018-02-14] MEDS: NYSTATIN/DPHA/LIDO/SUCRAFATE 120 ML MOUTHWASH MM SCH ×3 (00:42→15:16)
[2018-02-14] MEDS: LEVOTHYROXINE NA 25 MCG TABLET (FP) PO SCH (06:33)
[2018-02-14] MEDS: LYTES/YERBA SANTA 240 ML BOTTLE MM SCH ×3 (06:34→16:21)
[2018-02-14] MEDS: LORazepam 0.5 MG TABLET PO PRN (08:25)
[2018-02-14 08:53] LABS: ANION GAP 11 MMOL/L (8-16); BASO % 0.3 % (0-2.0); BLOOD UREA NITROGEN 35 mg/dl (7-18); CALCIUM 9.1 mg/dl (8.4-10.2); CHLORIDE 97 mmol/L (98-107); CO2 27 mmol/L (22-28); CREATININE 1.8 mg/dl (0.6-1.3); GLUCOSE,RANDOM 115 mg/dl (74-106); HEMATOCRIT 33.8 % (32.4-45.2); HEMOGLOBIN 11.3 GM/dl (10.7-15.3); LYMPH % 85.5 % (8-40); MCH 27.1 pg (25.7-33.7); MCHC 33.4 g/dl (32.0-36.0); MEAN PLT VOLUME 7.5 fl (7.5-11.1); MONO % 5.3 % (3.8-10.2); PLATELET COUNT 205 K/MM3 (134-434); RBC 4.18 M/mm3 (3.60-5.2); RDW 17.5 % (11.6-15.6); SODIUM 135 mmol/L (136-145)
[2018-02-14 08:57] LABS: NEUT % 8.4 % (42.8-82.8)
[2018-02-14 09:02] LABS: WHITE BLOOD COUNT 44.8 K/mm3 (4.0-10.8)
[2018-02-14] MEDS: MAGNESIUM OXIDE 400 MG TABLET (FP) PO SCH (09:08)
[2018-02-14] MEDS: ENOXAPARIN NA (PORCINE) 30 MG/0.3 ML DISP.SYRIN SQ SCH (09:08)
[2018-02-14] MEDS: POTASSIUM CHLORIDE TABS 10 MEQ TABLET.ER (FP) PO SCH (09:08)
[2018-02-14] MEDS: LACTOBACILLUS ACIDOPHILUS 1 TABLET PO SCH (09:08)
[2018-02-14] MEDS: ALBUTEROL SO4 2.5/IPRATROPIUM 0.5 INH SOL 3 ML VIAL.NEB. NEB SCH ×2 (09:08→15:39)
[2018-02-14] MEDS: FLUCONAZOLE 100 MG TABLET (UD) PO SCH (09:08)
[2018-02-14] MEDS ORDERED: LORazepam 0.5 MG TABLET PO PRN ×2 (09:28→09:30)
[2018-02-14] MEDS ORDERED: FUROSEMIDE 40 MG/4 ML INJECTABLE VIAL IVPUSH ONE (10:00)
[2018-02-14 14:33] VITALS: BP 115/64; PULSE 92; TEMP 97.5
--- NOTE | 2018-02-14 15:21 | PN ---
Progress Note (short form) - Note Progress Note: cc: sob History of Present Illness: sob continues to improve. Received 80 mg IV lasix in AM and PM yesterday and 80 mg IV x 1 this morning. no cp, palpitations, syncope no cigs Current Medications Acetaminophen (Tylenol -) 500 mg PO Q6H PRN PRN Reason: PAIN Last Admin: 02/09/18 11:26 Dose: 500 mg Albuterol/Ipratropium (Duoneb -) 1 amp NEB Q4H PRN PRN Reason: SHORTNESS OF BREATH Albuterol/Ipratropium (Duoneb -) 1 amp NEB RTID [facility] Last Admin: 02/12/18 21:41 Dose: 1 amp Diphenhydramine/Nystatin/Lidocaine (Nystatin Mouth Rinse *Df Formula*) 5 ml MM Q6HPO [facility] Last Admin: 02/13/18 06:30 Dose: Not Given Diphenhydramine/Nystatin/Lidocaine (Nystatin Mouth Rinse *Df Formula*) 5 ml MM ACHS PRN PRN Reason: DYSPHAGIA Enoxaparin Sodium (Lovenox -) 30 mg SQ DAILY [facility] Last Admin: 02/12/18 09:33 Dose: 30 mg Fluconazole (Diflucan -) 100 mg PO DAILY [facility] Last Admin: 02/12/18 11:17 Dose: 100 mg Lactobacillus Acidophilus (Bacid -) 1 tab PO BID [facility] Last Admin: 02/12/18 21:41 Dose: 1 tab Levothyroxine Sodium (Synthroid -) 25 mcg PO DAILY@0700 [facility] Last Admin: 02/13/18 06:31 Dose: 25 mcg Loperamide HCl (Imodium -) 2 mg PO Q8H PRN PRN Reason: DIARRHEA Last Admin: 02/09/18 11:27 Dose: 2 mg Lorazepam (Ativan -) 0.5 mg PO HS PRN PRN Reason: ANXIETY Last Admin: 02/12/18 21:40 Dose: 0.5 mg Magnesium Oxide (Mag-Ox -) 400 mg PO BID [facility] Last Admin: 02/12/18 21:41 Dose: 400 mg Potassium Chloride (K-Dur -) 40 meq PO DAILY [facility] Saliva Substitute (Mouthkote Solution -) 1 applic MM Q4HWA [facility] Last Admin: 02/13/18 06:30 Dose: Not Given - Objective Vital Signs: Vital Signs Period Temp Pulse Resp BP Sys/Jones Pulse Ox Last 24 Hr 97.3 F-98.1 F 94-102 18-20 100-115/44-88 92-99 Constitutional: Yes: No Distress, Calm Eyes: No: Sclera Icterus HENT: No: Nasal Congestion Cardiovascular: Yes: Regular Rate and Rhythm, Murmur (hi pitched NEEL lusb), S1, S2, Other (PMI non diplaced). No: JVD, Gallop Respiratory: Yes: Diminished (bases), no rhonchi. No: Accessory Muscle Use Gastrointestinal: Yes: Normal Bowel Sounds, Soft. No: Tenderness Musculoskeletal: Yes: Other (No kyphosis) Extremities: No: Cold Edema: No (stockings) Integumentary: No: Jaundice Neurological: Yes: Alert, Oriented (x3) Psychiatric: No: Agitated Assessment/Plan CXR: bilat effusions. incr'd interstitial markings. no vascular redistribution. no genoveva B lines--similar to 02/01 CT chest: bilat effusions, ATX, no infiltrates, mild mediast adenopathy Echo 01/2018: lvef 40, global hk, mod-sev mr, sev as, mod-sev ar. IMAGES REVIEWED: EF 40 vs 40-45% range. suspect AI is mild-moderate (PHT likely short due to non-compliant LV). suspect MR likely is moderate range visually. severe posterior MAC, thickened leaflets with visually restricted motion--likely mild- moderate mitral stenosis (mean gradient approx 3-4 mmHg at 79 bpm). mean AV gradient approx 80, peak mi 5.3. pleural effusions, acute valvular HFpEF, ? PNA -known critical since 2016. -pt appears to be in acute CHF, triggered by recent diet sodium load, +/- contribution from recent URI tipping her over. new leg swelling and MUKHERJEE tracks with timing of oral sodium loads in diet, and had partial response to po lasix as outpt, then sx's worsened (? b/c lasix dose was decreased--pt uncertain on this point). -suspect mild JVD on exam and + hepatojugular reflux c/w high right-sided pressures. -02/10 received lasix 20 po x 1 here, only minimal UOP since. will give trial dose lasix 40 iv x 1 tonight--suspect she will diurese significantly to this ( lasix naive). will monitor weight trend from today to tomorrow and subjective UOP response. -trend daily bun/creat while diuresing. -BNP 25K (baseline 10K) -no consistent downward wt trend with lasix 80 iv--pt reported sob improved. lasix held on 02/09 for bun/creat bump (1.6) -02/11: cxr from 02/10 unchanged, peristent effusions and vasc engorgement. remains sob with little activity. no JVD/neg HJR but she must still be volume overloaded given the sizable effusions that persist (albumin is preserved). she is not diuresing very much with lasix 40 iv (urinated 3x), wt unchanged. -suspect she has fixed, low cardiac output from critical with reduced LVEF and hence cannot perfuse kidneys adequately to diurese. doubt milrinone will have major effect here given fixed LV obstruction. -became increasingly sob at rest yest pm, received lasix 40 iv x 1 with improvement, then 80 iv later in pm. urine output not charted but per dtr ( reliable historian), approximately 950 cc total. -02/12: symptomatic improvement with lasix yesterday, may have to tolerate higher creatinine new baseline in order to effectively diurese her. d/w'd pt, dtr and dr giraldo: plan will be to try to optimize her medically here (diurese , then if adequate bp room initiate very low dose BB-->NOAM later) and then have outpt f/u with dr gupta at [facility] [place] re: TAVR. -creat 1.7--lasix 80 iv x 1 now. repeat bun/creatinine at 3pm--if stable, will give additional lasix 80 iv tonight - 02/13 Cr rising, 1.8, weight up 121 lbs ->123 lbs., however yesterday's weight may have been inaccurate. lasix 80 mg IV given AM and PM - 02/14 Cr 1.8, received additional dose of 80 mg IV lasix this morning, will defer further lasix today. patient is awaiting transfer to [place], accepted by Dr. Gupta for evaluation for balloon valvuloplasty, TAVR Ao stenosis: -pt diagnosed with critical approx 2 yrs ago (est CRISTINO 0.4 cm2). -was asymptomatic with reasonable functional capacity at that time, and since ( per dtr). 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
--- NOTE | 2018-02-14 15:25 | DS ---
Physical Examination Vital Signs: Vital Signs Temperature 97.5 F L 02/14/18 14:31 Pulse Rate 92 H 02/14/18 14:31 Respiratory Rate 19 02/14/18 14:31 Blood Pressure 115/64 02/14/18 14:31 O2 Sat by Pulse Oximetry (%) 92 L 02/14/18 14:31 Constitutional: Yes: Calm (received Ativan before my examination) Eyes: Yes: Conjunctiva Clear, EOM Intact HENT: Yes: Atraumatic, Normocephalic Neck: Yes: Supple Cardiovascular: Yes: Regular Rate and Rhythm, S1, S2. No: Murmur Respiratory: Yes: Regular, CTA Bilaterally, Other (pateit examinaed imemdiately after receiving her nebulizer) Gastrointestinal: Yes: Normal Bowel Sounds, Soft, Abdomen, Obese. No: Hepatomegaly, Splenomegaly Renal/: Yes: WNL Extremities: No: Calf Tenderness Edema: Yes Edema: LLE: Trace (ankle level), RLE: Trace (ankle level) Peripheral Pulses WNL: Yes Neurological: Yes: Alert, Oriented ...Motor Strength: WNL Psychiatric: Yes: Alert, Oriented Labs: CBC, BMP 02/14/18 07:55 02/14/18 07:55 Discharge Summary Reason For Visit: PNEUMOMIA Current Active Problems CHF (congestive heart failure) (Acute) Diarrhea (Acute) Edema (Acute) Hypothyroidism (Acute) Right middle lobe pneumonia (Acute) Thrush, oral (Acute) Hospital Course: 87 yo female with PMH of Severe Ao Stenosis, EF 40%, LV hypomotility, MAC in the past, Hypothyroidism, and CLL (s/p chemotherapy -Rituxan-?), in remission for years, off treatment now, 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 After using outpatient po antibiotics and 2 doses of LAsix 20 mg po she was admitted to the hospital with the diagnosis [place] [address] ([place] [address]) and acute CHF. The patient received diuresis with Lasix 80 mg iv bid, which helped her dyspnea. She completed her antibiotic treatment on 02/12/18. Her hospital course was complicated by severe diarrhea and oral thrush which affected her oral intake. C diff titers as well as all cultures: blood, AFB, ( preliminary), Legionellla and Influenza were negative. Her [facility] showed on 01/2018: lvef 40, global hk, mod-sev mr, sev as, mod-sev ar. IMAGES REVIEWED: EF 40 vs 40-45% range. suspect AI is mild-moderate (PHT likely short due to non-compliant LV). suspect MR likely is moderate range visually. severe posterior MAC, thickened leaflets with visually restricted motion-- likely mild-moderate mitral stenosis (mean gradient approx 3-4 mmHg at 79 bpm). mean AV gradient approx 80, peak mi 5.3. Her ct scan non contrast demonstrated possible atelectasis at the bases, and lingula as well as mediastinal lymphadenopathy. CXR performed on 02/13/18 showed no changes and persisting right infiltrate and bilateral pleural effusions. The patient is transferred for Ao Valvuloplasty to [facility] for admission under the service of Dr. Cristobal. The patient's Director Of Residential Services is Edward Pettit MD, affiliated with [facility] in [place]. Constance Salazar MD (PCP) office Condition: Stable - Instructions Disposition: TRANSFER ACUTE CARE/OTHER HOSP - Home Medications Comprehensive Discharge Medication List: Ambulatory Orders Promethazine HCl/Codeine [Prometh-Codein 6.25-10 mg/5 ml] 5 ml PO 06/02/16 Acetaminophen [Tylenol .Regular Strength -] 650 mg PO Q6H PRN #0 tablet Albuterol 0.083% Nebulizer Isela [Ventolin 0.083% Nebulizer Soln -] 1 amp NEB Q6H PRN #30 amp 06/07/16 Guaifenesin [Robitussin -] 10 ml PO Q4H PRN #30 cup 06/07/16 Oseltamivir Phosphate [Tamiflu -] 30 mg PO HS #1 capsule 06/07/16 Ranitidine [Zantac -] 150 mg PO DAILY tablet 06/07/16 levoFLOXacin [Levaquin -] 250 mg PO DAILY #7 tablet 06/07/16 Albuterol 0.083% Nebulizer Isela [Ventolin 0.083% Nebulizer Soln -] 1 neb NEB Q4H PRN #120 vial 04/18/17 Albuterol Sulfate Inhaler - [Ventolin Hfa Inhaler -] 2 inh PO Q4H PRN #1 inh
== END 2018-02-14 17:00 | disposition short-term general hospital (02) | DRG 291 ==
LOC: FM/S 13:35
PROVIDERS: ADMIT Internal Medicine; ATTEND Internal Medicine
DX: I50.31 Acute diastolic (congestive) heart failure (principal); J18.9 Pneumonia, unspecified organism; C91.91 Lymphoid leukemia, unspecified, in remission; A31.9 Mycobacterial infection, unspecified; D80.1 Nonfamilial hypogammaglobulinemia; B37.0 Candidal stomatitis; J98.11 Atelectasis; A31.0 Pulmonary mycobacterial infection; I35.8 Other nonrheumatic aortic valve disorders; N18.9 Chronic kidney disease, unspecified; R19.7 Diarrhea, unspecified; E03.9 Hypothyroidism, unspecified; I35.0 Nonrheumatic aortic (valve) stenosis
CPT/HCPCS: 36415; 71046-TC-FY; 71250-TC; 80048; 80053; 83615; 83625; 83735; 83880; 84550; 85025; 87040; 87116; 87206; 87493; 87804; 87899; 93005; 93306-TC; 94640